=== PATIENT | male | born 1960 | race Caucasian/White ===

== ENCOUNTER → 2019-05-30 16:12 | Outpatient (CLI) | payer BC, SELFPAY ==
--- NOTE | ~2019-05-30 | XR_ITS ---
XR lumbar spine 6V w bending 05/30/2019 17:46 Indication: Low back pain. Sciatica. Procedure: 7 views lumbar spine Comparison: 06/09/2018 Findings: There is levoscoliosis of the lumbar spine centered at L2-3. There is lateral listhesis at L3-4, unchanged. There is disc narrowing at all lumbar levels. There is moderate multilevel facet hyp ertrophy. There are endplate degenerative changes at multiple levels. There is degenerative retrolist hesis at L2-3, unchanged. No significant alteration of alignment with flexion or extension. There are Schmorl's nodes at multiple levels. There are cholecystectomy clips. Impression: 1: Stable severe lumbar spondylosis with levoscoliosis. Reviewed, dictated and finalized at location A. TAPER Impression: 1: Stable severe lumbar spondylosis with levoscoliosis.
--- NOTE | ~2019-05-30 | MR_ITS ---
EXAMINATION: MR lumbar spine wo con DATE: 05/30/2019 17:24 INDICATION: Low back pain. TECHNIQUE: Magnetic resonance imaging (MRI) of the lumbar spine was performed without intravenous con trast. Sequences included sagittal T2-weighted FSE, sagittal T2-weighted FS FSE, sagittal T1-weighted FSE, and axial T2-weighted FSE. COMPARISON: Lumbar spine MRI 01/13/2009 FINDINGS: There is 14 degrees levoscoliosis of lumbar spine. There are Schmorl's nodes at all levels. There is severely decreased disc height from L1-L2 through L3-L4 and moderately decreased disc heigh t at L4-L5. The distal spinal cord signal intensity is normal. The conus medullaris is at L1-L2. The following disc levels are specifically discussed: L1-L2: The disc is bulging. There is mild bilateral facet joint osteoarthritis. There is moderate taty ateral neural foraminal stenosis. There is mild central canal stenosis. L2-L3: The disc is bulging and has an annular fissure. There is severe right and mild left facet join t osteoarthritis. There is moderate right and mild left neural foraminal stenosis. There is mild cent ral canal stenosis. L3-L4: The disc is bulging and has an annular fissure. There is severe bilateral facet joint osteoart hritis. There is moderate bilateral neural foraminal stenosis. There is mild central canal stenosis. L4-L5: The disc is bulging and has an annular fissure. There is mild right and severe left facet join t osteoarthritis. There is moderate bilateral neural foraminal stenosis. There is severe central nury l stenosis. L5-S1: The disc is bulging. There is moderate right and severe left facet joint osteoarthritis. There is mild bilateral neural foraminal stenosis. There is mild central canal stenosis. IMPRESSION: 1. Severe lumbar spondylosis, worsened from 01/13/2009. 2. Lumbar levoscoliosis. Reviewed, dictated and finalized at location A. GORY ANALYST
== END ==
PROVIDERS: PCP Family Medicine; Visit Provider Nurse Practitioner Family
DX: M54.5 Low back pain (principal); M47.816 Spondylosis without myelopathy or radiculopathy, lumbar region; M41.9 Scoliosis, unspecified
CPT/HCPCS: 72114; 72148

== ENCOUNTER 2020-12-30 17:22 | Outpatient (CLI) | payer BC, SELFPAY ==
--- NOTE | ~2020-12-30 | CT_ITS ---
EXAMINATION: CT abdomen pelvis wo con DATE: 12/30/2020 18:03 INDICATION: Calculus of kidney. TECHNIQUE: Computed tomography (CT) of the abdomen and pelvis was performed without intravenous contr ast. Automated exposure control and iterative reconstruction technique were employed. The dose-length product was 302.95 mGy-cm. COMPARISON: CT abdomen and pelvis 01/19/2018 FINDINGS: The visualized portions of the lung bases are clear without pneumonia or pleural effusion. The heart size is normal. There are coronary artery calcifications. No pericardial effusion. There is diffuse hepatic steatosis. There are changes of cholecystectomy. The spleen, pancreas, and adrenal g lands are normal. There are two 5 mm stones in right renal pelvis. There is a 5 mm stone in left ray l pelvis. There is a 2 mm stone in left kidney. There are peripelvic cysts in the kidneys. There is p rominent fat in left inguinal canal that may be a hernia. The prostate is mildly enlarged. There is d iverticulosis of the colon without evidence of diverticulitis. There are no dilated loops of bowel. T he appendix is normal. There are surgical changes of anterior abdominal wall. There are no pathologic ally enlarged lymph nodes. There is no free intraperitoneal fluid. There is lumbar levoscoliosis and severe spondylosis. IMPRESSION: 1. Bilateral nonobstructing kidney stones. Reviewed, dictated and finalized at location A.
--- NOTE | ~2020-12-30 | XR_ITS ---
EXAMINATION: XR abdomen/kub 1V DATE: 12/30/2020 17:45 INDICATION: Right flank pain. TECHNIQUE: A supine view of the abdomen on 2 radiographs was obtained. COMPARISON: CT abdomen and pelvis 12/30/2020 FINDINGS: There are 5 mm, 5 mm, and 2 mm stones in right renal pelvis. There is a 5 mm stone in left renal pelvis. There is a 2 mm stone in left kidney. There are no dilated loops of bowel. There are ph leboliths in the pelvis. IMPRESSION: 1. Bilateral kidney stones. Reviewed, dictated and finalized at location A. IMPRESSION: 1. Bilateral kidney stones.
== END 2020-12-30 17:23 | disposition home or self-care (01) ==
LOC: ANHIMG 17:26
PROVIDERS: PCP Family Medicine; Visit Provider Urology
DX: N20.0 Calculus of kidney (principal)
CPT/HCPCS: 74018; 74176

== ENCOUNTER 2021-01-13 08:12 | Outpatient (CLI) | payer BC, SELFPAY ==
[2021-01-13 09:03] LABS: INR 0.9; Prothrombin Time 12.4 Seconds (11.1-14.7)
[2021-01-13 09:04] LABS: Partial Thromboplastin Time 25.8 SECONDS (22.3-36.8)
== END 2021-01-13 08:13 | disposition home or self-care (01) ==
LOC: ANHSURGERY 08:15
PROVIDERS: PCP Family Medicine; Visit Provider Urology
DX: Z01.818 Encounter for other preprocedural examination (principal); N23 Unspecified renal colic
CPT/HCPCS: 36415; 85610; 85730; 87086

== ENCOUNTER 2021-01-17 02:15 | Day surgery (SDC) | payer BC, SELFPAY ==
[2021-01-09 17:36] VITALS: BMI 29.7
--- NOTE | 2021-01-16 12:23 | WPDANESEPPF ---
Anes - Initial Pre Proc Eval Procedure: Operation Date: 01/17/21 09:00 Proposed Procedures p Right Renal Extracorporeal Shock Wave Lithotripsy - Virgil Andujar MD Date/Time: 01/16/21 12:23 Surgeon: Virgil Andujar MD Pre Op Diagnosis: Right Renal Stone Patient Data Age: 60 Gender: M Height: 1.73 m Weight: 88.6 kg Allergies Allergy/AdvReac Type Severity Reaction Status Date / Time No Known Allergies Allergy Verified 01/17/21 07:38 Home Medications Medication Instructions Recorded Confirmed Type metaxalone 800 mg tablet 800 mg PO TID PRN #90 tablet 06/14/19 01/09/21 Rx valacyclovir 1 gram tablet 2,000 mg PO Q12H PRN #20 tablet 09/01/19 01/09/21 Rx hydrocodone 5 mg-acetaminophen 325 1 tablet PO Q6H PRN #40 tablet 10/31/19 01/09/21 Rx mg tablet lisinopril 10 mg tablet 10 mg PO DAILY #90 tablet 04/10/20 01/17/21 Rx clopidogrel 75 mg tablet See Rx Instructions .ROUTE 04/24/20 01/17/21 Rx .COMPLEX #90 tablet rosuvastatin 5 mg tablet See Rx Instructions .ROUTE 04/24/20 01/17/21 Rx .COMPLEX #90 tablet testosterone 20.25 mg/1.25 gram 4 pump TOPICAL DAILY #300 g 06/27/20 01/09/21 Rx (1.62 %) transdermal gel pump metformin 500 mg tablet,extended See Rx Instructions .ROUTE 07/15/20 01/17/21 Rx release 24 hr .COMPLEX #180 tablet metoprolol succinate 50 mg 25 mg PO DAILY #90 tablet 10/22/20 01/17/21 Rx tablet,extended release 24 hr aspirin 81 mg tablet,delayed 81 mg PO DAILY 10/30/20 01/17/21 History release sildenafil 100 mg tablet 100 mg PO DAILY PRN #30 tablet 10/30/20 01/09/21 Rx alclometasone 1 applic TOPICAL QAM 01/09/21 01/09/21 History alprazolam [Xanax] 0.25 mg PO TID PRN 01/09/21 01/17/21 History ibuprofen 800 mg PO QAM PRN 01/09/21 01/17/21 History lidocaine See Rx Instructions .ROUTE 01/09/21 History .COMPLEX PRN meloxicam 15 mg PO DAILY PRN 01/09/21 History zolpidem 10 mg PO .QHS PRN 01/09/21 01/09/21 History Patient hx anesthesia problems: none Family hx anesthesia problems: none [facility] Past Medical History Medical History (Updated 01/16/21 @ 12:24 by Shola Mcgovern DO) Actinic keratosis of forehead Atherosclerotic heart disease of [place] coronary artery with other forms of angina pectoris Bradycardia, drug induced Calculus of kidney Dyskinesia of esophagus Essential (primary) hypertension Fatty (change of) liver, not elsewhere classified History of heart attack Hypogonadism in male Insomnia Obesity (BMI 30.0-34.9) Obstructive sleep apnea (adult) (pediatric) Other lower urinary tract calculus Overweight (BMI 25.0-29.9) Prediabetes Pure hyperglyceridemia Sacroiliac joint dysfunction of left side Spondylosis without myelopathy or radiculopathy, lumbar region Tenosynovitis of left shoulder Thoracic aortic aneurysm without rupture Tinnitus Unspecified sleep apnea Surgical History Surgical History (Updated 01/16/21 @ 12:24 by Shola Mcgovern DO) History of coronary artery stent placement Family History Family History Mother Family history of cardiovascular disease Family history of coronary artery disease Family history of malignant neoplasm of breast in first degree relative Father Acute myocardial infarction, Onset Age: 40 Family history of heart disease in male family member before age 55 Other Family history of malignant neoplasm of breast Hypertension Social History Social History Smoking packs per day: 1 Smoking cigarettes per day: 20.0 Years smoked: 20 Smoking pack-years: 20.00 Smoking status: Former smoker Tobacco type: cigarettes Smoking end date: 01/09/99 Alcohol intake: current Living arrangements: with family Spiritual care concerns: No Anes - Eval Final PreProcedure Day of Procedure 01/16/21 12:23 Patient weight: overweight Heart: regular rate and rhythm Nathaly
[2021-01-17] VITALS (15 sets, daily range): BP systolic 97–147; BP diastolic 61–97; PULSE 67–85; RESP 12–19; TEMP 36.1–36.4; O2SAT 94–97
--- NOTE | ~2021-01-17 | XR_ITS ---
EXAMINATION: XR abdomen/kub 1V INDICATION: Calculus of kidney TECHNIQUE: Supine views of the abdomen were obtained on 2 radiographs. COMPARISON: 12/30/2020 FINDINGS: There are stones measuring 8 mm and 7 mm in the right renal pelvis at the level of the righ t L3 transverse process. There is a 5 mm stone in the left renal pelvis at the level of the left L3 t ransverse process. No stones are identified in the kidneys or bladder. The bowel gas pattern is edin l. Cholecystectomy clips are noted in the right upper quadrant. There are mesh hernia repair anchors in the midline. There is severe lumbar spondylosis and moderate hip osteoarthritis. IMPRESSION: 1. Unchanged stones in the bilateral renal pelves. Reviewed, dictated and finalized at location A.
--- NOTE | 2021-01-17 07:33 | WPDHPUPDATE1 ---
History and Physical Update Update Date/Time: 01/17/21 07:33 History and Physical has been reviewed, including an updated exam of the patient. There are NO changes in the patient's condition. Risks, benefits, and alternatives have been discussed and questions answered. Patient agrees to proceed with procedure. Proceed with right renal eswl
[2021-01-17] MEDS: LACTATED RINGERS 1,000 ML 30 ML IV CONT ×2 (08:05→10:11)
[2021-01-17] MEDS: ceFAZolin 2 GM/D5W 50 ML 2 GM/50 ML BAG IVPB (08:44)
--- NOTE | 2021-01-17 09:26 | W.PM.PROC2 ---
Procedure Note - Detailed Date of Procedure 01/17/21 Pre-op Diagnosis Right Renal Stone Post-op Diagnosis same Procedure Performed ESWL right renal calculi Surgeon Virgil Andujar MD Anesthesia general Description of Procedure Patient is taken the operative suite correctly identified. Once anesthesia was obtained the right renal stones were localized in both planes. Two thousand five hundred shocks were given. Patient tolerated procedure well without complications taken recovery stable condition. Patient had 2 stones which were adjacent to each other each measuring 4-5 mm. Drains No Packing No Pathology none sent Complications No immediate complications Condition stable Disposition PACU
[2021-01-17] MEDS: ONDANSETRON INJ 4 MG/2 ML VIAL IV PUSH (10:48)
[2021-01-17] MEDS: oxyCODONE HCL (*CRX) 5 MG TAB IR PO (11:04)
[2021-01-17] MEDS: ACETAMINOPHEN 500 MG TABLET 1000 MG PO (12:00)
--- NOTE | 2021-01-17 12:08 | SUR.PHASEII ---
pt still c/o pain after meds given per jul. md biran called about pt assessment. said to give oxybutinin 5mg. vss abd soft but tender. will continue to monitor. pt called and updated.
[2021-01-17] MEDS: OXYBUTYNIN CHLORIDE 5 MG TABLET PO (12:22)
== END 2021-01-17 13:16 | disposition home or self-care (01) ==
PROVIDERS: PCP Family Medicine; Visit Provider Urology
PROC: (CPT 50590; principal; 2021-01-17 09:00)
DX: N20.0 Calculus of kidney (principal); I25.10 Atherosclerotic heart disease of native coronary artery without angina pectoris; I10 Essential (primary) hypertension; I25.2 Old myocardial infarction; K76.0 Fatty (change of) liver, not elsewhere classified; G47.33 Obstructive sleep apnea (adult) (pediatric); R73.03 Prediabetes; E78.1 Pure hyperglyceridemia; M47.816 Spondylosis without myelopathy or radiculopathy, lumbar region; I71.2 Thoracic aortic aneurysm, without rupture; Z95.5 Presence of coronary angioplasty implant and graft; Z87.891 Personal history of nicotine dependence; Z79.02 Long term (current) use of antithrombotics/antiplatelets; Z79.891 Long term (current) use of opiate analgesic; Z79.84 Long term (current) use of oral hypoglycemic drugs; Z79.82 Long term (current) use of aspirin
CPT/HCPCS: 50590; 74018; A9270; J0690; J1100; J2250; J2405; J2704; J3010; J7120

== ENCOUNTER 2021-01-27 12:08 | Outpatient (CLI) | payer BC, SELFPAY ==
--- NOTE | ~2021-01-27 | XR_ITS ---
EXAMINATION: XR abdomen/kub 1V INDICATION: Calculus of the kidney TECHNIQUE: Supine views of the abdomen were obtained on 2 radiographs. COMPARISON: 01/17/2021 FINDINGS: Previously described stones in the right renal pelvis are no longer seen. There appear to b e new tiny stone fragments in the right kidney lower pole which may relate to treatment of right ray l pelvis stones. A 4 mm stone projects in the expected location of the left renal pelvis at the level of the left L3 transverse process. Punctate stone is seen in the left kidney lower pole. This ventra l hernia repair changes are noted. There is moderate osteoarthritis of the hips. Severe lumbar spondy losis is noted. Surgical clips in the right upper quadrant are likely from prior cholecystectomy. IMPRESSION: 1. Interval treatment of right-sided stones with possible resulting stone fragments in the right kidn ey lower pole. 2. Unchanged stone in the left renal pelvis. Reviewed, dictated and finalized at location A. IMPRESSION: 1. Interval treatment of right-sided stones with possible resulting stone fragm ents in the right kidney lower pole. 2. Unchanged stone in the left renal pelvis.
== END 2021-01-27 12:09 | disposition home or self-care (01) ==
LOC: ANHIMG 12:12
PROVIDERS: PCP Family Medicine; Visit Provider Urology
DX: N20.0 Calculus of kidney (principal)
CPT/HCPCS: 74018

== ENCOUNTER 2021-03-04 12:14 | Outpatient (CLI) | payer OTHER, SELFPAY ==
--- NOTE | ~2021-03-04 | MR_ITS ---
EXAMINATION: MR cervical spine wo con EXAM DATE: 03/04/2021 13:45 INDICATION: M79.2 - Neuralgia and neuritis, unspecified. TECHNIQUE: Multi-sequential, multiplanar MR images of the cervical spine were obtained without contra st. Axial T2, axial T2 MERGE sequence. Sagittal T1, T2, T2 fat saturation images also obtained. Th ere is no prior study for comparison. FINDINGS: There is moderate to severe disc disease from C3 through C7. The spinal cord signal intens ity and intrinsic morphology is normal. Cervicomedullary junction is normal in appearance. The verteb ral bodies are aligned in the AP dimension. There are no suspicious marrow signal abnormalities. Para spinal soft tissue is unremarkable. Level by level evaluation: C2-C3: Disc does not extend beyond the endplate margin. Uncovertebral joint arthropathy: None. Facet joint arthropathy: Mild bilateral. Neural foraminal stenosis: No stenosis. Central canal stenosis: No stenosis. C3-C4: There is a mild diffuse disc bulge. Uncovertebral joint arthropathy: Moderate bilateral. Facet joint arthropathy: Moderate bilateral. Neural foraminal stenosis: Moderate to severe left, moderate right. Central canal stenosis: Mild. C4-C5: There is a mild diffuse disc bulge. Uncovertebral joint arthropathy: Moderate to severe bilateral. Facet joint arthropathy: Moderate to severe bilateral. Neural foraminal stenosis: Moderate to severe bilateral, right greater than left. Central canal stenosis: Mild. C5-C6: There is a mild diffuse disc bulge. Uncovertebral joint arthropathy: Moderate to severe bilateral. Facet joint arthropathy: Mild to moderate bilateral. Neural foraminal stenosis: Moderate right, mild to moderate left. Central canal stenosis: Mild. C6-C7: There is a mild diffuse disc bulge. Uncovertebral joint arthropathy: Moderate bilateral. Facet joint arthropathy: Mild bilateral. Neural foraminal stenosis: Moderate to severe right, moderate left. Central canal stenosis: Mild. C7-T1: Disc does not extend beyond the endplate margin. Uncovertebral joint arthropathy: Mild bilateral. Facet joint arthropathy: Mild bilateral. Neural foraminal stenosis: No stenosis. Central canal stenosis: No stenosis. IMPRESSION: 1. Advanced mid cervical spondylosis. Reviewed, dictated and finalized at location A.
--- NOTE | ~2021-03-04 | MR_ITS ---
EXAMINATION: MR shoulder RT wo con DATE: 03/04/2021 13:45 INDICATION: Neuralgia/neuritis with particular pain at the right upper extremity and right shoulder p ain while sleeping. TECHNIQUE: Magnetic resonance imaging (MRI) of the right shoulder was performed without intravenous c ontrast. Sequences included axial PD-weighted FS FSE, coronal oblique PD-weighted FS FSE, coronal obl ique T2-weighted FS FSE, sagittal PD-weighted FS FSE, and sagittal T1-weighted SE. COMPARISON: None. FINDINGS: Coracoacromial arch: The acromion undersurface is curved in morphology (type II). The coracoacromial ligament is normal. M ild acromioclavicular osteoarthritis. Rotator cuff: Mild supraspinatus and moderate infraspinatus tendinopathy. There is no articular sided tear involvin g less than one third of the tendon thickness at the anterior superior facet footplate of the suprasp inatus tendon increasing in severity to greater than 50% at the conjoined portion of the supraspinatu s and infraspinatus tendons. The articular side of the tear measures 1.8 cm AP. In the mid infraspina tus tendon the tear transitions to a small bursal sided tear involving approximately 50% the tendon t hickness at the distal 1 cm of the mid to posterior infraspinatus tendon. Full-thickness communicatio n between the articular bursal sides of the tendon cannot be excluded although no clearly defined/magui surable full-thickness fluid signal intensity tear defect is appreciated. The teres minor tendon is n ormal. Mild to moderate subscapularis tendinopathy without discrete tear. Normal rotator cuff muscle bulk and signal. Biceps tendon, glenoid labrum and glenohumeral cartilage: Moderate tendinopathy of the intra-articular long head of the biceps tendon with suggestion of possib le longitudinal split tearing at the junction of the internal extra articular portion of the tendon. Moderate right glenohumeral osteoarthritis with extensive partial thickness cartilage loss throughout the glenoid and along the humeral head which appears to involve greater than 50% the thickness at th e superomedial aspect of the humeral head with small focus of underlying subarticular edema as well a s at the along the anterior and inferior aspects of the glenoid, lateral with mild subarticular cysti c change. Diffuse degenerative tearing of the glenoid labrum. 8 mm diameter paralabral cyst at the 6: 00 position of the glenoid. Fluid: Minimal glenohumeral joint effusion with fluid surrounding a couple loose osteochondral bodies at the deep subscapular recess. There is a small amount of fluid in the subacromial/subdeltoid bursa, a por tion of which extends medially along the posterior margin of the scapular spine or there is an additi onal small loose body. There is also small amount of fluid in the subcoracoid bursa. The fluid in bot h bursae could be related to either bursitis or decompression of glenohumeral joint fluid through a s uspected full-thickness rotator cuff perforation. Bones: Bone alignment is normal. No fracture or pathologic marrow replacing process. IMPRESSION: 1. Moderate-sized mild to moderate severity rotator cuff tear extending along the articular side of t he supraspinatus tendon and conjoined portion of the supraspinatus and infraspinatus tendons and hemphill sitioning to a bursal sided tear at the mid to posterior infraspinatus tendon. Suspect this likely in cludes a contiguous full-thickness perforation/communication although no single discrete full-thickne ss tear defect is appreciated. 2. Moderate glenohumeral osteoarthritis with diffuse degenerative tearing of the glenoid labrum. 3. Moderate tendinopathy and suggestion of longitudinal split tearing of the long head biceps tendon. 4. Moderate acromioclavicular osteoarthritis. 5. Fluid in the subacromial/subdeltoid bursa and subcoracoid bursa which could be due to bursitis or decompr
== END 2021-03-04 12:15 | disposition home or self-care (01) ==
PROVIDERS: PCP Family Medicine; Visit Provider Family Medicine
DX: M79.2 Neuralgia and neuritis, unspecified (principal); S43.431A Superior glenoid labrum lesion of right shoulder, initial encounter; M19.011 Primary osteoarthritis, right shoulder; M47.812 Spondylosis without myelopathy or radiculopathy, cervical region
CPT/HCPCS: 72141; 73221

== ENCOUNTER 2021-03-10 15:27 | Outpatient (CLI) | payer BC, SELFPAY ==
[2021-03-10 16:09] LABS: Prothrombin Time 12.7 Seconds (11.1-14.7)
[2021-03-10 16:13] LABS: Partial Thromboplastin Time 25.7 SECONDS (22.3-36.8)
[2021-03-10 16:18] LABS: Anion Gap 7 mmol/L (8-16); Blood Urea Nitrogen 20 mg/dL (9-20); Calcium 9.7 mg/dL (8.4-10.2); Carbon Dioxide 33 mmol/L (22-30); Chloride 101 mmol/L (98-107); Estimated Glomerular Filt Rate > 60; Glucose 124 mg/dL (65-110); Sodium 141 mmol/L (137-145)
== END 2021-03-10 15:28 | disposition home or self-care (01) ==
LOC: ANHSURGERY 15:31
PROVIDERS: Anesthesiology; PCP Family Medicine; Visit Provider Urology
DX: Z01.818 Encounter for other preprocedural examination (principal); N20.0 Calculus of kidney; E11.9 Type 2 diabetes mellitus without complications
CPT/HCPCS: 36415; 80048; 85610; 85730; 87086

== ENCOUNTER 2021-03-14 02:16 | Day surgery (SDC) | payer BC, SELFPAY ==
[2021-03-10 12:18] VITALS: BMI 29.6
--- NOTE | 2021-03-10 12:35 | PC.NURSE ---
Report to the Outpatient Waiting Room, entrance under the green pavilion located off [facility], at time 6:00 on date 03/14/21. OR Time: 7:30. - You and your visitor will be asked a series of questions to screen for COVID 19 for your protection. - A mask is required within the hospital. - Only one visitor is allowed at this time. Patient visitors will be guided where to wait when not with patient. Preoperative COVID Testing Requirements: No COVID Test needed if: (proof is required; if not received patient will have Rapid Test prior to entry) - Patient has received COVID Vaccine at least 14 days prior to procedure date or - Patient has positive COVID test result within last 90 days of surgery date. COVID Test needed if above criteria is not met If not COVID vaccinated a COVID test must be conducted within 72 hours of surgery and patient is asked to isolate self from time of testing until procedure. You will go to the [facility] for your COVID testing. The [facility] is located at the corner of [address] [facility]. You will only be called if COVID results are positive and your surgeon may reschedule your elective surgery date. Patients may have clear liquids (water, carbonated beverages, clear teas, apple juice) until 3 hours prior to surgery with a maximum of 20 ounces. - No food from midnight until time of surgery - Infants may have breast milk until 4 hours before surgery, infant formula 6 hours prior to surgery. - Children will be allowed to drink immediately following surgery. If applicable, please bring a bottle or sippy cup to assist with drinking. Juice, water, soda, and popsicles are readily available. For infants on formula, please bring formula the day of surgery. Pacifiers are allowed. Take the following medications with a SIP of water the morning of surgery: METOPROLOL, METAXALONE, XANAX, PAIN PILL (IF NEEDED) Medications to discontinue per physician: ASPIRIN, PLAVIX, IBUPROFEN, MELOXICAM Date to take last dose: 7 DAYS PRE-OP (PER DR. REED) Please no make-up, nail iraqi, hairspray, perfume, deodorant, or body powder the day of surgery. No jewelry (including any body piercings) or valuables the day of surgery, leave them at home. Please take a shower or bath the night before, or the morning of, surgery with an antibacterial soap. Wear comfortable, loose fitting clothing. Children are encouraged to wear pajamas. - Jewelry must be removed prior to entering the operating room. Rings and piercings that are not removed may be cut off. - The hospital will not accept responsibility for valuables. - Please leave all valuables, including medications, at home the day of surgery. If you are going home after surgery, a licensed local owner operator truck driver must drive you home. - NO public transportation without another adult. - We recommend that an adult stay with you for 24 hours following discharge. - We also recommend that you do not drive, make important decision, drink alcoholic beverages, or take any drugs that were not prescribed by your health care provider for at least 24 hours after your discharge time. For Pediatric surgeries, we recommend two adults accompany the child home (only one inside the building at this time). Follow any additional instructions given to you from your surgeon. Telephone instructions given to LISETTE NUÑEZ and asked if any additional questions and then verbalized understanding. Patient advised to call surgeon office or pre surgery nurse liaison [phone] if any additional questions.
[2021-03-14] VITALS (8 sets, daily range): BP systolic 139–165; BP diastolic 85–106; PULSE 65–86; RESP 16; TEMP 36.1–36.4; O2SAT 94–99
--- NOTE | ~2021-03-14 | XR_ITS ---
XR abdomen/kub 1V 03/14/2021 06:12 Indication: Preop ESWL Procedure: KUB Comparison: Comparison to multiple prior studies sequentially, with oldest reviewed study dated 01/28. Findings: Bowel gas pattern is nonobstructive. There are bilateral renal stones, largest near the exp ected location of the left UPJ measuring 5 mm. There is multilevel lumbar spondylosis with levoscolio sis. There are symmetric degenerative change of the hips. Lung bases unremarkable. Impression: 1: Stable bilateral nephrolithiasis. Reviewed, dictated and finalized at location A. HBORHOOD AIDE Impression: 1: Stable bilateral nephrolithiasis.
[2021-03-14] MEDS: LACTATED RINGERS 1,000 ML 30 ML IV CONT (06:44)
--- NOTE | 2021-03-14 06:50 | WPDANESEPPF ---
Anes - Initial Pre Proc Eval Procedure: Operation Date: 03/14/21 07:30 Proposed Procedures p Left Renal Extracorporeal Shock Wave Lithotripsy - Virgil Andujar MD Date/Time: 03/14/21 06:50 Surgeon: Virgil Andujar MD Pre Op Diagnosis: Left Renal Stone Patient Data Age: 60 Gender: M Height: 1.73 m Weight: 88.45 kg Allergies Allergy/AdvReac Type Severity Reaction Status Date / Time No Known Allergies Allergy Verified 03/10/21 12:15 Home Medications Medication Instructions Recorded Confirmed Type metaxalone 800 mg tablet 800 mg PO TID PRN #90 tablet 06/14/19 03/10/21 Rx lisinopril 10 mg tablet 10 mg PO DAILY #90 tablet 04/10/20 03/10/21 Rx clopidogrel 75 mg tablet See Rx Instructions .ROUTE 04/24/20 03/10/21 Rx .COMPLEX #90 tablet rosuvastatin 5 mg tablet See Rx Instructions .ROUTE 04/24/20 03/10/21 Rx .COMPLEX #90 tablet metformin 500 mg tablet,extended See Rx Instructions .ROUTE 07/15/20 03/10/21 Rx release 24 hr .COMPLEX #180 tablet metoprolol succinate 50 mg 25 mg PO DAILY #90 tablet 10/22/20 03/10/21 Rx tablet,extended release 24 hr aspirin 81 mg tablet,delayed 81 mg PO DAILY 10/30/20 03/10/21 History release alclometasone 1 applic TOPICAL QAM 01/09/21 03/10/21 History alprazolam [Xanax] 0.25 mg PO TID PRN 01/09/21 03/10/21 History ibuprofen 800 mg PO QAM PRN 01/09/21 03/10/21 History lidocaine See Rx Instructions .ROUTE 01/09/21 03/10/21 History .COMPLEX PRN meloxicam 15 mg PO DAILY PRN 01/09/21 03/10/21 History testosterone 20.25 mg/1.25 gram 4 pump TOPICAL DAILY #300 g 01/30/21 03/10/21 Rx (1.62 %) transdermal gel pump hydrocodone 5 mg-acetaminophen 325 1 tablet PO Q6H PRN #30 tablet 02/21/21 03/10/21 Rx mg tablet Patient hx anesthesia problems: other (slow to awaken) Family hx anesthesia problems: none Results Review: All pre-operative results and documents have been reviewed as part of the pre-operative evaluation. [facility] Past Medical History Medical History Actinic keratosis of forehead Atherosclerotic heart disease of [place] coronary artery with other forms of angina pectoris Bradycardia, drug induced Calculus of kidney Dyskinesia of esophagus Essential (primary) hypertension Fatty (change of) liver, not elsewhere classified History of heart attack Hypogonadism in male Inguinal hernia (~10/2017) Insomnia Obesity (BMI 30.0-34.9) Obstructive sleep apnea (adult) (pediatric) Other lower urinary tract calculus Overweight (BMI 25.0-29.9) Prediabetes Pure hyperglyceridemia Sacroiliac joint dysfunction of left side Spondylosis without myelopathy or radiculopathy, lumbar region Tenosynovitis of left shoulder Thoracic aortic aneurysm without rupture Tinnitus Umbilical hernia (~01/2014) Unspecified sleep apnea Surgical History Surgical History History of coronary artery stent placement (~10/2009) History of tonsillectomy Hx of cholecystectomy (~08/2004) Status post laser lithotripsy of ureteral calculus Family History Family History Mother Family history of cardiovascular disease Family history of coronary artery disease Family history of malignant neoplasm of breast in first degree relative Father Acute myocardial infarction, Onset Age: 40 Family history of heart disease in male family member before age 55 Other Family history of malignant neoplasm of breast Hypertension Social History Social History Smoking packs per day: 1 Smoking cigarettes per day: 20.0 Years smoked: 25 Smoking pack-years: 25.00 Smoking status: Former smoker Tobacco type: cigarettes Smoking end date: 05/03/94 Alcohol intake: current Drinks per week: 4 Substance use: never Substance use type: does not use
[2021-03-14 06:53] LABS: Glucose Point of Care 155 mg/dl (65-105)
--- NOTE | 2021-03-14 07:01 | ECG_ITS ---
Measurements Intervals [place] Rate: 71 P: 9 [place]: 173 QRS: -17 QRSD: 94 T: -19 QT: 356 QTc: 388 Interpretive Statements SINUS RHYTHM VOLTAGE CRITERIA FOR LVH BORDERLINE T WAVE ABNORMALITY- INFERIOR LEADS BASELINE ARTIFACT- II, III, AVF BORDERLINE ECG Electronically Signed On 03-14-2021 8:54:46 MANAGER MECHANICAL by Rk Dale D.O.
--- NOTE | 2021-03-14 07:16 | WPDHPUPDATE1 ---
History and Physical Update Update Date/Time: 03/14/21 07:16 History and Physical has been reviewed, including an updated exam of the patient. There are NO changes in the patient's condition. Risks, benefits, and alternatives have been discussed and questions answered. Patient agrees to proceed with procedure. Proceed with left renal eswl
[2021-03-14] MEDS: ceFAZolin 2 GM/D5W 50 ML 2 GM/50 ML BAG IVPB (07:30)
--- NOTE | 2021-03-14 08:11 | W.PM.PROC2 ---
Procedure Note - Detailed Date of Procedure 03/14/21 Pre-op Diagnosis Left Renal Stone Post-op Diagnosis same Procedure Performed ESWL of left renal calculus Surgeon Virgil Andujar MD Anesthesia general Description of Procedure Patient is taken the operative suite correctly identified. Once anesthesia was obtained the left renal stone was localized in both planes. After 1500 shocks the stone was no longer visible. We thus terminated procedure. Patient was taken recovery stable condition. He will follow up in about 10 days with a KUB. If develops any problems he will call us to deal with appropriately. Drains No Packing No Pathology none sent Complications No immediate complications Disposition PACU
[2021-03-14] MEDS: fentaNYL CITRATE INJ (*CRX) 100 MCG/2 ML VIAL 25 MCG IV PUSH ×4 (08:28→08:44)
[2021-03-14] MEDS: oxyCODONE HCL (*CRX) 5 MG TAB IR PO (09:10)
== END 2021-03-14 10:00 | disposition home or self-care (01) ==
PROVIDERS: PCP Family Medicine; Visit Provider Urology
PROC: (CPT 50590; principal; 2021-03-14 07:30)
DX: N20.0 Calculus of kidney (principal); R31.29 Other microscopic hematuria; R31.0 Gross hematuria; Z79.82 Long term (current) use of aspirin; Z79.84 Long term (current) use of oral hypoglycemic drugs; L57.0 Actinic keratosis; I25.118 Atherosclerotic heart disease of native coronary artery with other forms of angina pectoris; R00.1 Bradycardia, unspecified; I10 Essential (primary) hypertension; K76.0 Fatty (change of) liver, not elsewhere classified; I25.2 Old myocardial infarction; G47.33 Obstructive sleep apnea (adult) (pediatric); R73.03 Prediabetes; E78.1 Pure hyperglyceridemia; M47.816 Spondylosis without myelopathy or radiculopathy, lumbar region; Z95.5 Presence of coronary angioplasty implant and graft; Z90.49 Acquired absence of other specified parts of digestive tract; Z87.891 Personal history of nicotine dependence
CPT/HCPCS: 50590; 74018; 82948; 93005; A9270; J0690; J1100; J2250; J2405; J2704; J3010; J7120

== ENCOUNTER 2021-03-19 14:57 | Outpatient (CLI) | payer BC, SELFPAY ==
--- NOTE | ~2021-03-19 | XR_ITS ---
EXAMINATION: XR abdomen/kub 1V DATE: 03/19/2021 15:17 INDICATION: Renal stones post recent lithotripsy TECHNIQUE: A supine view of the abdomen on 2 radiographs was obtained. COMPARISON: 03/14/2021 FINDINGS: There are three,1-2 mm stones project over the lower pole of the right kidney. Unchanged 1 mm stone p rojecting over the lower pole of the left kidney. Likely interval lithotripsy of a previously seen 5 mm stone at the left ureteropelvic junction with residual 2-3 mm stone fragment in the proximal most left ureter projecting slightly lateral to the left transverse process of L3. Unchanged pattern of ph leboliths in the pelvis. No other evident ureteral stones.. Postoperative changes with multiple stapl es project over the central abdomen and pelvis. Mild lumbar levoscoliosis with severe spondylosis. IMPRESSION: 1. Bilateral nephrolithiasis with likely interval lithotripsy of a prior 5 mm stone at the left urete ropelvic junction with residual 2-3 mm stone fragment in the proximal most left ureter. Reviewed, dictated and finalized at location A. RAL MANAGER [employer]ACLE DATA CLOUD IMPRESSION: 1. Bilateral nephrolithiasis with likely interval lithotripsy of a prior 5 mm s tone at the left ureteropelvic junction with residual 2-3 mm stone fragment in the proximal most left ureter.
== END 2021-03-19 14:58 | disposition home or self-care (01) ==
LOC: ANHIMG 15:02
PROVIDERS: PCP Family Medicine; Visit Provider Urology
DX: N20.0 Calculus of kidney (principal)
CPT/HCPCS: 74018

== ENCOUNTER 2021-05-30 00:32 | Day surgery (SDC) | payer OTHER, SELFPAY ==
[2021-05-26 15:46] VITALS: BMI 29.7
--- NOTE | 2021-05-26 15:48 | SUR.PREOP ---
Report to the Outpatient Waiting Room, entrance under the green pavilion located off [facility], at time _1030 on date _05/30/21 . OR Time: _1230 . - A mask is required within the hospital. Preoperative COVID Testing Requirements: No COVID Test needed if: (proof is required; if not received patient will have Rapid Test prior to entry) - Patient has received COVID Vaccine at least 14 days prior to procedure date or - Patient has positive COVID test result within last 90 days of surgery date. COVID Test needed if above criteria is not met If not COVID vaccinated a COVID test must be conducted within 72 hours of surgery and patient is asked to isolate self from time of testing until procedure. You will go to the [facility] for your COVID testing. The [facility] is located at the corner of [address] [facility]. You will only be called if COVID results are positive and your surgeon may reschedule your elective surgery date. Patients may have clear liquids (water, carbonated beverages, clear teas, apple juice) until 3 hours prior to surgery with a maximum of 20 ounces. - No food from midnight until time of surgery - Infants may have breast milk until 4 hours before surgery, formula 6 hours prior to surgery. - Children will be allowed to drink immediately following surgery. If applicable, please bring a bottle or sippy cup to assist with drinking. Juice, water, soda, and popsicles are readily available. For infants on formula, please bring formula the day of surgery. Pacifiers are allowed. Take the following medications with a SIP of water the morning of surgery: __xanax,metoprolol Medications to discontinue per physician n/a_ Date to take last dose Please no make-up, nail fijian, hairspray, perfume, deodorant, or body powder the day of surgery. No jewelry (including any body piercings) or valuables the day of surgery, leave them at home. Please take a shower or bath the night before, or the morning of, surgery with an antibacterial soap. Wear comfortable, loose fitting clothing. Children are encouraged to wear pajamas. - Jewelry must be removed prior to entering the operating room. Rings and piercings that are not removed may be cut off. - The hospital will not accept responsibility for valuables. - Please leave all valuables, including medications, at home the day of surgery. If you are going home after surgery, a licensed [employer] flatbed driver must drive you home. - NO public transportation without another adult. - We recommend that an adult stay with you for 24 hours following discharge. - We also recommend that you do not drive, make important decision, drink alcoholic beverages, or take any drugs that were not prescribed by your health care provider for at least 24 hours after your discharge time. For Pediatric surgeries, we recommend two adults accompany the child home (only one inside the building at this time). Follow any additional instructions given to you from your surgeon. Telephone instructions given to _sarita duran and asked if any additional questions and then verbalized understanding. Patient advised to call surgeon office or pre surgery nurse liaison [phone] if any additional questions.
--- NOTE | 2021-05-29 12:02 | WPDANESPNB ---
Anes - Peripheral Nerve Block Date/Time: 05/29/21 12:02 I have discussed with the patient/family/POA the placement of a peripheral nerve block for post-operative pain management, including associated risks, benefits, complications, and side effects. Alternative methods of post-operative analgesia were detailed. Questions were solicited and answers provided to the satisfaction of the patient/family/POA. Time-Out: A pre-procedural Time-Out was completed immediately before starting the procedure and confirmed: Patient Identification, Site, Procedure, Patient Position and the Availability of Requisite Equipment. Clinical Indications: Acute post-operative pain management requested by the operative surgeon. Nerve Block Insertion Note Anes-nerve block: supraclavicular right Patient position: supine Skin prep: chlorhexidine Needle: 22 gauge, stimulating, insulated echogenic needle. Needle length: 80 mm Technique: ultrasound (in plane) Injectate: bupivacaine 0.5% with epi 5 mcg/ml (20cc) Observations: tolerated well Complications: none Procedure start time:: 1325 Procedure end time:: 1330
--- NOTE | 2021-05-29 12:02 | WPDANESEPPF ---
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 Patient Data Age: 60 Gender: M Height: 1.73 m Weight: 88.63 kg Allergies Allergy/AdvReac Type Severity Reaction Status Date / Time No Known Allergies Allergy Verified 05/30/21 10:32 Home Medications Medication Instructions Recorded Confirmed Type metoprolol succinate 50 mg 25 mg PO DAILY #90 tablet 10/22/20 05/30/21 Rx tablet,extended release 24 hr aspirin 81 mg tablet,delayed 81 mg PO DAILY 10/30/20 05/30/21 History release alprazolam [Xanax] 0.25 mg PO PRN PRN 01/09/21 05/30/21 History lidocaine See Rx Instructions .ROUTE 01/09/21 05/30/21 History .COMPLEX PRN testosterone 20.25 mg/1.25 gram 4 pump TOPICAL DAILY #300 g 01/30/21 05/30/21 Rx (1.62 %) transdermal gel pump hydrocodone 5 mg-acetaminophen 325 1 tablet PO Q6H PRN #30 tablet 02/21/21 05/30/21 Rx mg tablet valacyclovir 500 mg tablet 500 mg PO PRN 03/24/21 05/30/21 History zolpidem 5 mg tablet 5 mg PO QHS PRN 03/24/21 05/30/21 History rosuvastatin 5 mg tablet See Rx Instructions .ROUTE 04/04/21 05/30/21 Rx .COMPLEX #90 tablet lisinopril 10 mg tablet 10 mg PO DAILY #90 tablet 04/07/21 05/30/21 Rx ibuprofen 800 mg PO DAILY 05/26/21 05/30/21 History metaxalone [Skelaxin] 800 mg PO PRN PRN 05/26/21 05/30/21 History Patient hx anesthesia problems: none Family hx anesthesia problems: none Results Review: All pre-operative results and documents have been reviewed as part of the pre-operative evaluation. [facility] Past Medical History Medical History (Updated 05/30/21 @ 12:34 by Addy Lozoya MD) Actinic keratosis of forehead Atherosclerotic heart disease of [place] coronary artery with other forms of angina pectoris Bradycardia, drug induced Calculus of kidney Cardiomyopathy ef 43%, mild jordana-infarct ischemia 01/21 Dyskinesia of esophagus Essential (primary) hypertension Fatty (change of) liver, not elsewhere classified History of heart attack Hypogonadism in male Inguinal hernia (~10/2017) Insomnia Obesity (BMI 30.0-34.9) Obstructive sleep apnea (adult) (pediatric) Other lower urinary tract calculus Overweight (BMI 25.0-29.9) Prediabetes Pure hyperglyceridemia Sacroiliac joint dysfunction of left side Spondylosis without myelopathy or radiculopathy, lumbar region Tenosynovitis of left shoulder Thoracic aortic aneurysm without rupture Tinnitus Umbilical hernia (~01/2014) Unspecified sleep apnea Surgical History Surgical History History of coronary artery stent placement (~10/2009) History of tonsillectomy Hx of cholecystectomy (~08/2004) Status post laser lithotripsy of ureteral calculus Family History Family History Mother Family history of cardiovascular disease Family history of coronary artery disease Family history of malignant neoplasm of breast in first degree relative Father Acute myocardial infarction, Onset Age: 40 Family history of heart disease in male family member before age 55 Other Family history of malignant neoplasm of breast Hypertension Social History Social History Smoking packs per day: 1 Smoking cigarettes per day: 20.0 Years smoked: 25 Smoking pack-years: 25.00 Smoking status: Former smoker Tobacco type: cigarettes Smoking end date: 05/03/98 Additional smoking assessment comments: 1ppd x20 year smoker Alcohol intake: current Drinks per week: 3 Substance use: never Substance use type: does no
[2021-05-30] VITALS (12 sets, daily range): BP systolic 105–157; BP diastolic 65–91; PULSE 65–95; RESP 15–20; TEMP 36.1–36.5; O2SAT 91–97
[2021-05-30] MEDS: ACETAMINOPHEN 500 MG TABLET 1000 MG PO (10:39)
[2021-05-30] MEDS: LACTATED RINGERS 1,000 ML 30 ML IV CONT ×2 (10:54→15:56)
[2021-05-30] MEDS: KETOROLAC 15 MG/ML VIAL (*BKC) IV PUSH (10:58)
--- NOTE | 2021-05-30 12:43 | WPDHPUPDATE1 ---
History and Physical Update Update Date/Time: 05/30/21 12:43 History and Physical has been reviewed, including an updated exam of the patient. There are NO changes in the patient's condition. Risks, benefits, and alternatives have been discussed and questions answered. Patient agrees to proceed with procedure.
--- NOTE | 2021-05-30 16:01 | W.PM.PROC2 ---
Procedure Note - Detailed Date of Procedure 05/30/21 Pre-op Diagnosis 1. Right shoulder Rotator Cuff Tear 2. Biceps Tendinosis 3. Degenerative arthritis. Post-op Diagnosis same Procedure Performed 1. Arthroscopic rotator cuff repair 2. Arthroscopic subacromial decompression 3. Arthroscopic biceps tenodesis 4. Arthroscopic labral debridement Surgeon Junior Gomes MD Certified Coding Specialist Patricia Castaneda PA-C Anesthesia general and regional ( interscalene block) Indications Severe shoulder pain and disfunction after injury. Acute rotator cuff tear and biceps injury. Chronic degenerative changes. Findings Extensive tendinosis of the biceps tendon in the joint. Tenodesis was performed at the articular margin with a loop and tack suture secured to the anterior bone tunnel. Extensive degeneration of the glenoid and mild degeneration of the humerus. Labrum damage 360?. Debridement with the shaver and the radiofrequency probe. Biceps was released from superior labrum. The subscapularis was intact. A medium size tear of the supraspinatus was confirmed. Very high-grade articular side tearing. It was very easy to pop through the remaining thin bursal side. At the subacromial space, gentle debridement delineated the medium-sized tear without significant retraction. Two tunnels were created through the bone arthroscopically. Three sutures passed through each tunnel. A rip stop configuration was performed and the sutures were tied arthroscopically. The biceps loop and tack stitch was tied at the anterior lateral portal. A complete bursectomy was performed and modest acromioplasty. Description of Procedure Preoperative antibiotics were given. An interscalene block was administered in the preoperative area. The patient was bought brought to the operating room. A general anesthetic was administered. The patient was carefully positioned in the beach chair position. The head and neck were carefully positioned. The non operative extremity was also carefully positioned. The shoulder was prepped and draped in the usual sterile fashion. Examination was performed. Standard posterior and anterior arthroscopic portals were established. Inflow achieved with the arthroscopic pump using saline and epinephrine. The glenohumeral joint was carefully inspected. The degeneration of the glenoid was most notable around the periphery with areas of exposed bone and extensive labral degeneration. This was treated with debridement using the arthroscopic shaver and the radiofrequency probe. The humerus was more modest in its generalized chondrosis. Biceps loop stitch was placed around and then secured distally. The biceps was then released. The location of the anchor was very close to the opposed anterior bone tunnel thus the biceps was secured to the bone tunnel instead of using the anchor. Attention was turned to the subacromial space. A complete bursectomy was performed. The rotator cuff and footprint were lightly debrided. A modest acromioplasty was performed. The tear configuration was carefully assessed. At this point, 2 tunnels were created at the rotator cuff. The arthroscopic bone tunnel technique was utilized. Three sutures were passed through each tunnel. All sutures were then passed through the cuff tissue. A rip stop configuration was used. This reduced the tendon very nicely and anatomically onto the footprint. The sutures were tied arthroscopically. Additionally, the suture from the biceps was secured to a suture limb at the anterolateral tunnel. The arthroscopic instruments were removed. The wounds were closed with 3-0 Monocryl subcuticular suture and steri strips. There were no complications. A sling was applied and the patient brought to the recovery room. Physician offset assistant press operator, Patricia Castaneda PA-C, required for surgery; including patient positioning, draping, arthroscopic camera operation, maintaining instrument position, suture retrieval,
--- NOTE | 2021-05-30 16:33 | SUR.PHASEI ---
Simple mask removed at 1631.
[2021-05-30] MEDS: ONDANSETRON INJ 4 MG/2 ML VIAL IV PUSH (16:39)
[2021-05-30] MEDS: SCOPOLAMINE 1.5 MG PATCH TRANSDERM (16:51)
[2021-05-30] MEDS: diphenhydrAMINE HCl INJ 50 MG/ML VIAL 25 MG IV PUSH (17:14)
--- NOTE | 2021-05-30 18:37 | SUR.PHASEII ---
2 RN'S ASSISTED PATIENT DRESSING HOLDING HIS RIGHT ARM FOR HIM. IMMOBLIZER REAPPLIED.
== END 2021-05-30 18:37 | disposition home or self-care (01) ==
PROVIDERS: PCP Family Medicine; Visit Provider Orthopaedic Surgery
PROC: (CPT 29805; principal; 2021-05-30 12:30)
DX: S46.011A Strain of muscle(s) and tendon(s) of the rotator cuff of right shoulder, initial encounter (principal); S46.201A Unspecified injury of muscle, fascia and tendon of other parts of biceps, right arm, initial encounter; X50.3XXA Overexertion from repetitive movements, initial encounter; Y99.0 Civilian activity done for income or pay; I25.118 Atherosclerotic heart disease of native coronary artery with other forms of angina pectoris; R00.1 Bradycardia, unspecified; I25.2 Old myocardial infarction; G47.33 Obstructive sleep apnea (adult) (pediatric); R73.03 Prediabetes; E78.1 Pure hyperglyceridemia; I71.6 Thoracoabdominal aortic aneurysm, without rupture; M47.26 Other spondylosis with radiculopathy, lumbar region; Z95.5 Presence of coronary angioplasty implant and graft; Z90.49 Acquired absence of other specified parts of digestive tract; Z87.891 Personal history of nicotine dependence; Z79.82 Long term (current) use of aspirin; M67.813 Other specified disorders of tendon, right shoulder; M19.011 Primary osteoarthritis, right shoulder; I11.9 Hypertensive heart disease without heart failure; I42.9 Cardiomyopathy, unspecified; G89.18 Other acute postprocedural pain
CPT/HCPCS: 64415; 29827; 29828; 29826; A4565; A9270; J1100; J1200; J1885; J2250; J2405; J2704; J2710; J3010; J7120

== ENCOUNTER 2021-07-20 15:46 | Emergency (ER) | payer BC, SELFPAY ==
[2021-07-20 15:54] VITALS: BP 177/98; PULSE 95; RESP 18; TEMP 36.7; O2SAT 97
[2021-07-20 16:17] LABS: Basophils Percent Auto 0.4 % (0.2-1.2); Eosinophils Absolute Auto 0.3 K/mm3 (0-0.3); Eosinophils Percent Auto 3.6 % (0-4.4); Hemoglobin 16.7 g/dL (14.0-18.0); Immature Granulocyte Absolute 0.02 K/mm3 (0.00-0.031); Immature Granulocyte Percent A 0.2 % (0-0.5); Lymphocytes Absolute Auto 1.93 K/mm3 (0.9-3.2); Lymphocytes Percent Auto 23.1 % (18.3-44.2); Mean Corpuscular HGB Conc 34.1 g/dl (32-36); Mean Corpuscular Hemoglobin 31.5 pg (26-34); Mean Corpuscular Volume 92.3 fl (80-100); Mean Platelet Volume 9.1 fl (7.4-10.4); Monocytes Absolute Auto 1.1 K/mm3 (0.1-0.6); Monocytes Percent Auto 12.7 % (2.6-8.5); Platelet Count Result 217 k/mm3 (150-375); Red Blood Count 5.31 M/mm3 (4.6-6.20); Red Cell Distribution Width 12.9 % (11.5-14.5); White Blood Count 8.4 K/mm3 (4.5-10.0)
[2021-07-20 16:23] LABS: Add Urine Microscopic? YES; Appearance Urine Clear (Clear); Bilirubin Urine Negative (Negative); Blood Urine 3+ (Negative); Color Urine Yellow (Yellow); Glucose Urine UA 1+ mg/dL (Negative); Ketones Urine Negative (Negative); Leukocyte Esterase Ur Negative LEU/UL (Negative); Mucus Urine Rare /lpf; Nitrate Urine Negative (Negative); Protein Urine 1+ mg/dL (Negative); RBC Urine >75 /hpf (0-2); Urobilinogen Urine Negative mg/dL (<2.0); WBC Urine 0-3 /hpf
[2021-07-20 16:37] LABS: Alanine Aminotransferase 46 U/L (4-50); Albumin Level 4.6 g/dL (3.5-5.1); Alkaline Phosphatase 46 U/L (38-126); Anion Gap 10 mmol/L (8-16); Aspartate Amino Transferase 49 U/L (17-59); Bilirubin,Total 0.9 mg/dL (0.2-1.3); Blood Urea Nitrogen 21 mg/dL (9-20); Calcium 9.2 mg/dL (8.4-10.2); Carbon Dioxide 25 mmol/L (22-30); Chloride 105 mmol/L (98-107); Estimated CRCL calculation 59 ml/min; Estimated Glomerular Filt Rate > 60; Glucose 165 mg/dL (65-110); Sodium 140 mmol/L (137-145)
--- NOTE | 2021-07-20 18:05 | PC.NURSE ---
Patient called this RN to report that he believed that he passed his kidney stone. RN noted a small pebble at the bottom of the urinal. Patient reports significant improvement in his pain level and requests discharge. made aware.
--- NOTE | 2021-07-20 18:06 | PC.NURSE ---
Dr. Currie at bedside to assess pt.
--- NOTE | 2021-07-20 18:17 | ED.ABDPAIN ---
HPI - Abdominal Pain General Chief Complaint: Abdominal Pain Stated Complaint: left flank pain Time Seen by Provider: 07/20/21 15:58 Source: patient and family Mode of arrival: ambulatory Limitations: no limitations History of Present Illness HPI narrative: Patient is 61 years old white male presented to the ED complaining of left flank pain started yesterday afternoon associated with nausea radiating to the left lower quadrant similar to his previous history with kidney stone. Patient denies any fever, chills, vomiting. Related Data Home Medications Medication Instructions Recorded Confirmed aspirin 81 mg tablet,delayed 81 mg PO DAILY 10/30/20 07/14/21 release alprazolam [Xanax] 0.25 mg PO PRN PRN 01/09/21 07/14/21 lidocaine See Rx Instructions .ROUTE 01/09/21 07/14/21 .COMPLEX PRN valacyclovir 500 mg tablet 500 mg PO PRN 03/24/21 07/14/21 zolpidem 5 mg tablet 5 mg PO QHS PRN 03/24/21 07/14/21 metaxalone [Skelaxin] 800 mg PO PRN PRN 05/26/21 07/14/21 lisinopril 20 mg tablet 20 mg PO DAILY 06/11/21 07/14/21 Allergies Allergy/AdvReac Type Severity Reaction Status Date / Time No Known Allergies Allergy Verified 07/20/21 15:48 Review of Systems Review of Systems: CONSTITUTIONAL: Denies fever, chills, or sweats. EYES: Denies visual changes, redness, or discharge. ENT: Denies rhinorrhea, congestion, sore throat, or otalgia. CARDIOVASCULAR: Denies chest pain, palpitations, or edema. RESPIRATORY: Denies cough or dyspnea. GASTROINTESTINAL: Denies abdominal pain, nausea, vomiting, or diarrhea. GENITOURINARY: Denies dysuria or hematuria. SKIN: Denies rash or itching. MUSCULOSKELETAL: Denies back pain, joint pain, or myalgia. NEUROLOGIC: Denies headache, numbness, or weakness. PSYCHIATRIC: Denies anxiety or depression. [facility] Past Medical History Medical History Actinic keratosis of forehead Atherosclerotic heart disease of [place] coronary artery with other forms of angina pectoris Bradycardia, drug induced Calculus of kidney Cardiomyopathy ef 43%, mild jordana-infarct ischemia 01/21 Dyskinesia of esophagus Essential (primary) hypertension Fatty (change of) liver, not elsewhere classified History of heart attack Hypogonadism in male Inguinal hernia (~10/2017) Insomnia Obesity (BMI 30.0-34.9) Obstructive sleep apnea (adult) (pediatric) Other lower urinary tract calculus Overweight (BMI 25.0-29.9) Prediabetes Pure hyperglyceridemia Sacroiliac joint dysfunction of left side Spondylosis without myelopathy or radiculopathy, lumbar region Tenosynovitis of left shoulder Thoracic aortic aneurysm without rupture Tinnitus Umbilical hernia (~01/2014) Unspecified sleep apnea Surgical History Surgical History History of coronary artery stent placement (~10/2009) History of tonsillectomy Hx of cholecystectomy (~08/2004) Status post laser lithotripsy of ureteral calculus Family History Family History Mother Family history of cardiovascular disease Family history of coronary artery disease Family history of malignant neoplasm of breast in first degree relative Father Acute myocardial infarction, Onset Age: 40 Family history of heart disease in male family member before age 55 Other Family history of malignant neoplasm of breast Hypertension Social History Social History Smoking packs per day: 1 Smoking cigarettes per day: 20.0 Years smoked: 25 Smoking pack-years: 25.00 Tobacco type: cigarettes Smoking end date: 05/03/98 Additional smoking assessment comments: 1ppd x20 year smoker Alcohol intake: current Drinks per week: 3 Substance use: never Substance use type: does not use Spiritual care concerns: No Exam Narrative: General appearance: Well-developed, well-nouris
[2021-07-20 18:30] VITALS: BP 143/105; PULSE 97; RESP 18; O2SAT 99
== END 2021-07-20 18:33 | disposition home or self-care (01) ==
PROVIDERS: Emergency Medicine; Emergency Provider Emergency Medicine; PCP Family Medicine
DX: R10.9 Unspecified abdominal pain (principal); N20.0 Calculus of kidney; I25.118 Atherosclerotic heart disease of native coronary artery with other forms of angina pectoris; I42.9 Cardiomyopathy, unspecified; K22.4 Dyskinesia of esophagus; I10 Essential (primary) hypertension; I25.2 Old myocardial infarction; G47.33 Obstructive sleep apnea (adult) (pediatric); E78.00 Pure hypercholesterolemia, unspecified; R73.03 Prediabetes; Z87.442 Personal history of urinary calculi; Z79.82 Long term (current) use of aspirin; Z95.5 Presence of coronary angioplasty implant and graft; Z87.891 Personal history of nicotine dependence
CPT/HCPCS: 36415; 80053; 81001; 85025; 99283

== ENCOUNTER 2021-10-07 10:27 | Outpatient (RCR) | payer BC, SELFPAY ==
[2021-10-07] MEDS: FAMOTIDINE 20 MG TABLET PO (14:22)
[2021-10-07] MEDS: ACETAMINOPHEN 325 MG TABLET 650 MG PO (14:22)
[2021-10-07] MEDS: diphenhydrAMINE HCl CAP 25 MG CAPSULE PO (14:23)
[2021-10-07 14:35] VITALS: BP 147/73; PULSE 75; RESP 18; TEMP 37.1; O2SAT 97
[2021-10-07] MEDS: BEBTELOVIMAB 175 MG/2 ML VIAL IV PUSH (14:52)
[2021-10-07 15:33] VITALS: BP 156/84
--- NOTE | 2021-10-07 15:39 | PC.NURSE ---
Patient's IV discontinued and within normal limits.
== END 2021-10-07 16:00 ==
LOC: AMCINF 10:27
PROVIDERS: PCP Family Medicine; Referring Provider Family Medicine; Visit Provider Internal Medicine Hematology & Oncology
DX: U07.1 COVID-19 (principal); I25.10 Atherosclerotic heart disease of native coronary artery without angina pectoris; I12.9 Hypertensive chronic kidney disease with stage 1 through stage 4 chronic kidney disease, or unspecified chronic kidney disease; N18.9 Chronic kidney disease, unspecified
CPT/HCPCS: A9270; M0222; Q0222

== ENCOUNTER 2022-07-16 15:07 | Outpatient (CLI) | payer BC, SELFPAY ==
[2022-07-16 20:03] LABS: Uric Acid 4.1 mg/dL (3.5-8.5)
== END 2022-07-16 15:08 | disposition home or self-care (01) ==
LOC: ANHGOSHLAB 15:08
PROVIDERS: PCP Family Medicine; Visit Provider Emergency Medicine
DX: M25.472 Effusion, left ankle (principal)
CPT/HCPCS: 36415; 84550

== ENCOUNTER → 2022-07-16 15:19 | Outpatient (CLI) | payer BC, SELFPAY ==
--- NOTE | ~2022-07-16 | XR_ITS ---
XR ankle LT min 3V 07/16/2022 15:27 Indication: Left ankle pain Procedure: 4 views left ankle Comparison: No prior studies for comparison. Findings: Ankle mortise intact. Talar dome is unremarkable. There is atherosclerosis. Small degenerat mary calcaneal enthesophyte at the plantar surface. Mild soft tissue swelling. No fracture or traumati c malalignment. No foreign bodies. Impression: 1: No acute bone or joint abnormality. Reviewed, dictated and finalized at location A. Impression: 1: No acute bone or joint abnormality.
== END ==
PROVIDERS: PCP Emergency Medicine; Visit Provider Emergency Medicine
DX: M25.572 Pain in left ankle and joints of left foot (principal); M25.472 Effusion, left ankle
CPT/HCPCS: 73610

== ENCOUNTER → 2023-03-17 15:52 | Outpatient (CLI) | payer BC, SELFPAY ==
--- NOTE | ~2023-03-17 | MR_ITS ---
MRI of the left shoulder Technique: Axial proton-density fat-sat images, coronal proton density fat-sat and T2 fat-sat images, and sagittal T1-weighted and T2 fat-sat images were acquired. COMPARISON: 01/05/2015 Clinical History: Bursitis Findings: There is advanced AC joint degenerative change, with bony productive change about the joint and mild reactive marrow edema. Coracoclavicular, coracoacromial, and coracohumeral ligaments appear intact. There is severe supraspinatus and infraspinatus tendinosis. Possible tiny linear articular surface pa rtial tear at the distal, anterior infraspinatus insertion. No high-grade partial or full-thickness t ear is seen. Subscapularis tendon is intact with severe tendinosis. Tendon of the long head of the bi ceps is intact. There is near circumferential degenerative labral tearing. There is probable small associated para la bral cyst just deep to the anterior to anterosuperior labrum, measuring 6 mm. There is diffuse glenohumeral joint space narrowing with high-grade chondromalacia and inferomedial h umeral head osteophyte. Inferior glenohumeral ligament is intact. There are small glenohumeral joint effusion with subcoracoid bursitis present. There is minimal fluid in the subacromial/subdeltoid burs a. No muscle atrophy or edema seen. There is cystic enthesopathic change with surrounding reactive ma rrow edema at the greater tuberosity of the humerus. Impression: Circumferential degenerative labral tearing with 6 mm perineural cyst the deep to the anterior to ant erosuperior labrum. Severe glenohumeral joint osteoarthritis, as detailed above. Subcoracoid bursitis, and minimal subacromial/subdeltoid bursitis. Advanced AC joint degenerative change. Severe rotator cuff tendinopathy without high-grade partial or full-thickness tear. Reviewed, dictated and finalized at location M. OLOGY MANAGER Impression: Circumferential degenerative labral tearing with 6 mm perineural cyst the deep to the anterior to anterosuperior labrum. Severe glenohumeral joint osteoarthritis, as detailed above. Subcoracoid bursitis, and minimal subacromial/subdeltoid bursitis. Advanced AC joint degenerative change. Severe rotator cuff tendinopathy without high-grade partial or full-thickness t ear.
== END ==
PROVIDERS: PCP Orthopaedic Surgery; Visit Provider Orthopaedic Surgery
DX: M75.52 Bursitis of left shoulder (principal); G96.191 Perineural cyst; M19.012 Primary osteoarthritis, left shoulder
CPT/HCPCS: 73221

== ENCOUNTER 2023-06-18 13:41 | Outpatient (CLI) | payer BC, SELFPAY ==
[2023-06-18 15:11] LABS: Basophils Percent Auto 0.5 % (0.2-1.2); Eosinophils Absolute Auto 0.2 K/mm3 (0-0.3); Eosinophils Percent Auto 2.6 % (0-4.4); Hematocrit 56.3 % (42.0-52.0); Hemoglobin 18.5 g/dL (14.0-18.0); Immature Granulocyte Absolute 0.01 K/mm3 (0.00-0.031); Immature Granulocyte Percent A 0.2 % (0-0.5); Lymphocytes Absolute Auto 1.88 K/mm3 (0.9-3.2); Lymphocytes Percent Auto 30.7 % (18.3-44.2); Mean Corpuscular HGB Conc 32.9 g/dl (32-36); Mean Corpuscular Hemoglobin 30.7 pg (26-34); Mean Corpuscular Volume 93.5 fl (80-100); Mean Platelet Volume 9.3 fl (7.4-10.4); Monocytes Absolute Auto 0.8 K/mm3 (0.1-0.6); Monocytes Percent Auto 12.6 % (2.6-8.5); Neutrophils Absolute Auto 3.3 K/mm3 (1.3-6.7); Neutrophils Percent Auto 53.4 % (45.5-73.1); Platelet Count Result 202 k/mm3 (150-375); Red Blood Count 6.02 M/mm3 (4.6-6.20); Red Cell Distribution Width 13.8 % (11.5-14.5); White Blood Count 6.1 K/mm3 (4.5-10.0)
[2023-06-18 15:20] LABS: Anion Gap 9 mmol/L (8-16); Blood Urea Nitrogen 18 mg/dL (9-20); Calcium 9.6 mg/dL (8.4-10.2); Carbon Dioxide 26 mmol/L (22-30); Chloride 105 mmol/L (98-107); Estimated Glomerular Filt Rate > 60; Glucose 111 mg/dL (65-110); Potassium 4.3 mmol/L (3.4-5.0); Sodium 140 mmol/L (137-145)
[2023-06-18 16:19] LABS: MRSA (PCR) NOT DETECTED (NOT DETECTE)
== END 2023-06-18 13:42 | disposition home or self-care (01) ==
LOC: ANHSURGERY 13:44
PROVIDERS: Anesthesiology; PCP Family Medicine; Visit Provider Orthopaedic Surgery
DX: Z01.818 Encounter for other preprocedural examination (principal); M19.011 Primary osteoarthritis, right shoulder; E11.9 Type 2 diabetes mellitus without complications
CPT/HCPCS: 36415; 80048; 85025; 87641

== ENCOUNTER 2023-07-15 00:10 | Day surgery (SDC) | payer BC, SELFPAY ==
[2023-06-18 13:59] VITALS: BP 126/74; PULSE 66; RESP 16; TEMP 37; O2SAT 96; BMI 27.1
--- NOTE | 2023-06-18 14:21 | PC.NURSE ---
Report to the Outpatient Waiting Room, entrance under the green pavilion located off [facility], at time __6:00AM on date __07/15/23 . Planned Procedure Time: __7:30AM . Time changes happen often and if your time is changed the preop area will call you the afternoon before. - You and your visitor will be asked to self-screen and do not enter if you have any COVID symptoms. - A mask is optional within the hospital at this time. Patients may have clear liquids (water, carbonated beverages, clear teas, apple juice) until 3 hours prior to surgery with a maximum of 20 ounces. - No food from midnight until time of surgery. Take the following medications with a SIP of water the morning of surgery: METOPROLOL. ALPRAZOLAM NEEDED. DO NOT STOP ANY OF YOUR OTHER PRESCRIPTION MEDICATIONS PRIOR TO SURGERY ?EXCEPT THE FOLLOWING Medications to discontinue per physician ____HOLD ASPIRIN 7 DAYS PRE-OP Date to take last dose____07/17/23 Please no make-up, nail georgian, hairspray, perfume, deodorant, or body powder the day of surgery. No jewelry (including any body piercings) or valuables the day of surgery, leave them at home. Please take a shower or bath the night before, or the morning of, surgery with an antibacterial soap. Wear comfortable, loose fitting clothing. - Jewelry must be removed prior to entering the operating room. Rings and piercings that are not removed may be cut off. - The hospital will not accept responsibility for valuables. - Please leave all valuables, including medications, at home the day of surgery. If you are going home after surgery, a licensed emergency vehicle driver must drive you home. - NO public transportation without another adult if you receive anesthesia. - We recommend that an adult stay with you for 24 hours following discharge. - We also recommend that you do not drive, make important decision, drink alcoholic beverages, or take any drugs that were not prescribed by your health care provider for at least 24 hours after your discharge time. Follow any additional instructions given to you from your surgeon. If you or anyone in your household have experienced Covid symptoms in the past week, please notify your surgeon or the nurse liaison at the phone number below for possible testing. Telephone instructions given to ____PATIENT and asked if any additional questions and then verbalized understanding. Patient advised to call surgeon office or pre surgery nurse liaison [phone] if any additional questions.
--- NOTE | 2023-07-14 10:51 | WPDANESEPPF ---
Anes - Initial Pre Proc Eval Procedure: Operation Date: 07/15/23 07:30 Proposed Procedures p Left Anatomic Total Shoulder Arthroplasty - Junior Gomes MD Date/Time: 07/14/23 10:51 Surgeon: Junior Gomes MD Pre Op Diagnosis: left shoulder primary oa Patient Data Age: 62 Gender: M Height: 1.73 m Weight: 81 kg Last Vital Signs Temp 37.0 C 06/18/23 13:59 Pulse 66 06/18/23 13:59 Resp 16 06/18/23 13:59 BP 126/74 06/18/23 13:59 Pulse Ox 96 06/18/23 13:59 O2 Del Method Room Air 06/18/23 13:59 Allergies Allergy/AdvReac Type Severity Reaction Status Date / Time metformin AdvReac Severe diarrhea Verified 07/15/23 06:06 Home Medications Medication Instructions Recorded Confirmed Type aspirin 81 mg tablet,delayed 81 mg PO DAILY 10/30/20 06/18/23 History release alprazolam 0.25 mg tablet (Xanax) 0.25 mg PO PRN PRN Anxiety 01/09/21 06/18/23 History lidocaine 5 % topical patch See Rx Instructions .Route 01/09/21 06/18/23 History .COMPLEX PRN Pain metaxalone 800 mg tablet (Skelaxin) 800 mg PO PRN PRN muscle pain 05/26/21 06/18/23 History valacyclovir 500 mg tablet 500 mg PO BID PRN HSV #20 tabs 04/28/23 06/18/23 Rx (Valtrex) hydrocodone 5 mg-acetaminophen 325 1 tablet PO Q6H PRN pain #30 tabs 04/29/23 06/18/23 Rx mg tablet zolpidem 5 mg tablet 5 mg PO QHS PRN Insomnia #30 tabs 04/29/23 06/18/23 Rx empagliflozin 25 mg tablet 25 mg PO QAM 06/18/23 06/18/23 History (Jardiance) fluoxetine 20 mg capsule (Prozac) 20 mg PO QPM 06/18/23 06/18/23 History lisinopril 20 mg tablet 20 mg PO QPM 06/18/23 06/18/23 History metoprolol succinate 50 mg 50 mg PO QAM 02/16/24 02/16/24 History tablet,extended release 24 hr semaglutide 1 mg/dose (4 mg/3 mL) 1 mg (0.75 mL) subcut WEEKLY #3 mL 06/21/23 Rx subcutaneous pen injector (Ozempic) testosterone (AndroGel) 4 pump topical DAILY 90 days #300 06/21/23 Rx grams Patient hx anesthesia problems: post op nausea/vomiting Family hx anesthesia problems: none Results Review: All pre-operative results and documents have been reviewed as part of the pre-operative evaluation. [facility] Past Medical History Medical History (Updated 07/14/23 @ 10:53 by Shola Mcgovern, ) Actinic keratosis of forehead Atherosclerotic heart disease of [place] coronary artery with other forms of angina pectoris Bradycardia, drug induced Calculus of kidney Cardiomyopathy ef 55% Dyskinesia of esophagus Essential (primary) hypertension Fatty (change of) liver, not elsewhere classified History of heart attack Hypogonadism in male Inguinal hernia (~10/2017) Insomnia Obesity (BMI 30.0-34.9) Obstructive sleep apnea (adult) (pediatric) Other lower urinary tract calculus Overweight (BMI 25.0-29.9) Prediabetes Pure hyperglyceridemia Sacroiliac joint dysfunction of left side Spondylosis without myelopathy or radiculopathy, lumbar region Tenosynovitis of left shoulder Thoracic aortic aneurysm without rupture Tinnitus Umbilical hernia (~01/2014) Unspecified sleep apnea Surgical History Surgical History History of arthroscopy of right shoulder (~05/30/21) right RCR, SAD, biceps tenodesis, labral JAYLON History of coronary artery stent placement (~10/2009) History of tonsillectomy Hx of cholecystectomy (~08/2004) Status post laser lithotripsy of ureteral calculus Family History Family History Mother Family history of cardiovascular disease Family history of coronary artery disease Family history of malignant neoplasm of breast in first degree relative Father Acute myocardial infarction, Onset Age: 40 Family history of heart disease in male family member before age 55 Other Family history of malignant neoplasm of breast Hypertension Social History Social History (Reviewed 06/18/23 @ 13:47 by Patricia Contreras
[2023-07-15] VITALS (14 sets, daily range): BP systolic 100–128; BP diastolic 61–93; PULSE 73–90; RESP 15–20; TEMP 35.6–36.7; O2SAT 92–97
--- NOTE | ~2023-07-15 | XR_ITS ---
EXAMINATION: XR shoulder LT min 2V DATE: 07/15/2023 10:44 INDICATION: Left shoulder arthroplasty. Postop. TECHNIQUE: 2 views of left shoulder were obtained. COMPARISON: Left shoulder radiographs 03/03/2023 FINDINGS: There is a reverse ictg-pkd-zhuawu total left shoulder arthroplasty in near-anatomic alignm ent. No fracture. There is mild left acromioclavicular joint osteoarthritis. There is gas in the soft tissues, consistent with recent surgery. IMPRESSION: 1. Reverse fwoa-[id number]-[id number] total left shoulder arthroplasty in near-anatomic alignment. Reviewed, dictated and finalized at location A. IMPRESSION: 1. Reverse gfdi-yyg-tzsbmd total left shoulder arthroplasty in near-anatomic al ignment.
[2023-07-15] MEDS: ACETAMINOPHEN 500 MG TABLET 1000 MG PO ×3 (06:09→17:10)
[2023-07-15 06:41] LABS: Glucose Point of Care 125 mg/dl (65-105)
[2023-07-15] MEDS: LACTATED RINGERS 1,000 ML 30 ML IV CONT ×2 (06:58→10:27)
[2023-07-15] MEDS: TRANEXAMIC ACID 1,000MG/ISO100 1,000 MG/100 ML BAG 200 MG IVPB (06:58)
--- NOTE | 2023-07-15 07:19 | WPDHPUPDATE1 ---
History and Physical Update Update Date/Time: 07/15/23 07:19 History and Physical has been reviewed, including an updated exam of the patient. There are NO changes in the patient's condition. Risks, benefits, and alternatives have been discussed and questions answered. Patient agrees to proceed with procedure.
--- NOTE | 2023-07-15 07:41 | WPDANESPNB ---
Anes - Peripheral Nerve Block Date/Time: 07/15/23 07:41 I have discussed with the patient/family/POA the placement of a peripheral nerve block for post-operative pain management, including associated risks, benefits, complications, and side effects. Alternative methods of post-operative analgesia were detailed. Questions were solicited and answers provided to the satisfaction of the patient/family/POA. Time-Out: A pre-procedural Time-Out was completed immediately before starting the procedure and confirmed: Patient Identification, Site, Procedure, Patient Position and the Availability of Requisite Equipment. Clinical Indications: Acute post-operative pain management requested by the operative surgeon. Nerve Block Insertion Note Anes-nerve block: interscalene left Patient position: supine Skin prep: chlorhexidine Needle: 22 gauge, stimulating, insulated echogenic needle. Needle length: 50 mm Technique: ultrasound Injectate: bupivacaine 0.5% with epi 5 mcg/ml (30cc- no epi) Observations: tolerated well Complications: none Procedure start time:: 734 Procedure end time:: 737
[2023-07-15] MEDS: ceFAZolin 2 GM/D5W 50 ML 2 GM/50 ML BAG IVPB ×2 (07:42→16:02)
[2023-07-15] MEDS: SODIUM CHLORIDE 0.9% IV 37.7 ML, MORPHINE SULFATE INJ (*CRX) 2 MG, ROPivacaine HCL 1% 2... INFILTRATE (08:24)
[2023-07-15] MEDS: VANCOMYCIN HCL 1,000 MG VIAL 1000 MG TOPICAL (08:26)
[2023-07-15 10:38] LABS: Glucose Point of Care 153 mg/dl (65-105)
--- NOTE | 2023-07-15 10:42 | W.PM.PROC2 ---
Procedure Note - Detailed Date of Procedure 07/15/23 Pre-op Diagnosis left shoulder primary oa Post-op Diagnosis Same Procedure Performed Reverse total shoulder arthroplasty, left Surgeon Junior Gomes MD Fish Processing Supervisor Patricia Castaneda PA-C Anesthesia General and Regional (Interscalene block.) Findings Moderate degenerative changes at the glenohumeral joint. Significant degeneration of the supraspinatus extending towards the infraspinatus. Mid grade articular tearing. Because of these findings it was elected to proceed with reverse total shoulder arthroplasty. Description of Procedure The patient was given an interscalene block in the preoperative area. Preoperative antibiotics were given. The patient was transferred to the operating room and a general anesthetic was administered. The beach chair position was used at 45 degrees. All bony prominences were padded. The head was carefully stabilized on the [facility] head charrer. A sterile prep and drape was performed in the usual manner with ChloraPrep. A longitudinal incision was created at the anterior shoulder just lateral to the deltopectoral interval. Hydrogen peroxide was placed on the incision and then rinsed after one minute. Careful dissection was performed to expose the interval and protect the cephalic vein. The vein was retracted medially. The upper border of the pectoralis was released. Anterior circumflex vessel branches were suture ligated. The biceps was [tenodesed]. A subscapularis tenotomy was performed. The inferior capsule was released, exposing the humeral head. Osteophytes were removed. Care was taken to stay on bone to protect the axillary nerve. The anatomic head cut was taken with the oscillating saw. The guide pin was placed, central drilling performed, and the broach trial inserted. The neck anteversion and inclination were carefully assessed. The cut protector was placed, and attention was turned to the glenoid. Retractors were placed. Releases were carried out for exposure. The subscapularis was mobilized, the inferior capsule and long head of triceps released, and the superior and middle glenohumeral ligaments released as well. Labral tissue was resected as needed. The sizing template was used to assess the baseplate position low on the glenoid. A guide pin was placed. Minimal reaming was used to accomplish a flat surface without violating the subchondral bone. Version was corrected according to preoperative templating. The boss was drilled, and the real component was impacted into position. Supplemental locking screws were placed centrally, superiorly, and inferiorly. The glenosphere was impacted into the taper. The proximal humerus was reamed for the inset component. The humeral components were trialed. The real humeral stem, tray, and insert were impacted into position. The shoulder was copiously irrigated periodically with pulsatile lavage. The shoulder was reduced and stability confirmed. 1 gram of Vancomycin powder was placed in the joint. The biceps tenodesis was incorporated with the pectoralis tendon repair. The deltopectoral space was reapproximated with number 1 Vicryl. The remaining tissue was closed with 0 Quill and 2-0 Quill running suture and steri-strips. A sterile silver occlusive dressing and shoulder immobilizer were placed. The patient was transferred to the recovery room. Physician clinical trials assistant, Patricia Castaneda PA-C, required for surgery; including patient positioning, draping, tissue retraction, maintaining instrument position, wound closure, and dressing placement. Implants Shoulder Innovations reverse TSA size 0 stem. +0 polyethylene insert. Standard baseplate. 36+ 6 mm glenosphere. Estimated Blood Loss 150 Drains No Pathology None sent Complications No immediate complications Condition Stable Disposition PACU [facility] Billing Surgery - Charge Forward: Surgery Billing
--- NOTE | 2023-07-15 11:45 | ADMGEN ---
This patient, Mark Barnard, was admitted to -. Patient/family oriented to hospital policies and general routines including ID bracelet, bed and alarms, visiting hours, pain management, procedures, bathroom and other care routines, personal items, smoking policy, room service/diet, and visiting hours. Information on how to activate the Rapid Response Team has been discussed. Patient/Family are encouraged to report perceived risks to care and to ask questions if they do not understand what they are told or what they should do.
[2023-07-15] MEDS: SENNA/DOCUSATE SODIUM TABLET 2 TAB PO (16:02)
[2023-07-15] MEDS: ASPIRIN 81 MG ENTERIC TABLET PO (16:02)
[2023-07-15] MEDS: MELOXICAM 7.5 MG TABLET PO (16:03)
[2023-07-15] MEDS: oxyCODONE HCL (*CRX) 5 MG TAB IR PO (17:09)
[2023-07-15] MEDS: FLUoxetine HCL 20 MG CAPSULE PO (17:10)
[2023-07-15] MEDS: lisinopriL 20 MG TABLET PO (17:10)
[2023-07-15] MEDS: CYCLOBENZAPRINE HCL 10 MG TABLET PO (18:58)
[2023-07-15] MEDS: traMADol HCL (*CRX) 50 MG TABLET PO (18:58)
[2023-07-15 20:55] LABS: Glucose Point of Care 159 mg/dl (65-105)
[2023-07-15] MEDS: FAMOTIDINE 20 MG TABLET PO (21:17)
[2023-07-16] MEDS: ACETAMINOPHEN 500 MG TABLET 1000 MG PO ×2 (00:26→06:01)
[2023-07-16] MEDS: ceFAZolin 2 GM/D5W 50 ML 2 GM/50 ML BAG IVPB ×2 (00:26→09:20)
[2023-07-16 00:33] VITALS: BP 108/55; PULSE 72; RESP 14; TEMP 36.1; O2SAT 95
[2023-07-16 05:25] VITALS: BP 108/51; PULSE 68; RESP 12; TEMP 36.3; O2SAT 98
[2023-07-16 07:50] LABS: Anion Gap 3 mmol/L (8-16); Blood Urea Nitrogen 23 mg/dL (9-20); Calcium 8.4 mg/dL (8.4-10.2); Carbon Dioxide 26 mmol/L (22-30); Chloride 106 mmol/L (98-107); Estimated CRCL calculation 79 ml/min; Estimated Glomerular Filt Rate > 60; Glucose 140 mg/dL (65-110); Potassium 3.5 mmol/L (3.4-5.0); Sodium 135 mmol/L (137-145)
[2023-07-16 07:57] LABS: Basophils Percent Auto 0.4 % (0.2-1.2); Eosinophils Absolute Auto 0.1 K/mm3 (0-0.3); Eosinophils Percent Auto 1.1 % (0-4.4); Hematocrit 51.1 % (42.0-52.0); Hemoglobin 16.4 g/dL (14.0-18.0); Immature Granulocyte Absolute 0.04 K/mm3 (0.00-0.031); Immature Granulocyte Percent A 0.4 % (0-0.5); Lymphocytes Absolute Auto 1.26 K/mm3 (0.9-3.2); Lymphocytes Percent Auto 12.1 % (18.3-44.2); Mean Corpuscular HGB Conc 32.1 g/dl (32-36); Mean Corpuscular Hemoglobin 30.9 pg (26-34); Mean Corpuscular Volume 96.2 fl (80-100); Mean Platelet Volume 9.5 fl (7.4-10.4); Monocytes Absolute Auto 1.1 K/mm3 (0.1-0.6); Neutrophils Absolute Auto 7.8 K/mm3 (1.3-6.7); Platelet Count Result 167 k/mm3 (150-375); Red Blood Count 5.31 M/mm3 (4.6-6.20); Red Cell Distribution Width 14.1 % (11.5-14.5); White Blood Count 10.4 K/mm3 (4.5-10.0)
[2023-07-16] MEDS: oxyCODONE HCL (*CRX) 5 MG TAB IR PO (08:20)
[2023-07-16] MEDS: ASPIRIN 81 MG ENTERIC TABLET PO (08:20)
[2023-07-16 08:21] VITALS: PULSE 68
[2023-07-16] MEDS: MELOXICAM 7.5 MG TABLET PO (08:21)
[2023-07-16] MEDS: METOPROLOL SUCCINATE EXT REL 50 MG TABCR PO (08:21)
[2023-07-16] MEDS: FAMOTIDINE 20 MG TABLET PO (08:22)
[2023-07-16] MEDS: polyethylene glycoL 3350 17 GM POWD.PACK PO (08:22)
[2023-07-16] MEDS: ALPRAZolam (*CRX) 0.25 MG TABLET PO (08:22)
[2023-07-16] MEDS: EMPAGLIFLOZIN 25 MG TABLET PO (08:22)
--- NOTE | 2023-07-16 08:59 | PM.DS ---
DS: Admitting Diagnosis Discharge Date 07/16/23 Admitting Diagnosis Right glenohumeral joint arthritis. DS: Discharge Diagnosis Discharge Diagnosis (1) Status post reverse total arthroplasty of left shoulder: Code(s): Z96.612 - Presence of left artificial shoulder joint Status: Acute Assessment and Plan: Postop day 1: Left reverse total shoulder arthroplasty. Patient tolerated procedure well. No complications. Pain manageable with pain medication. No numbness or tingling. We had a lengthy discussion regarding postoperative wound care, limitations, expectations, and exercises. Patient shows good understanding. He has had initial physical therapy and is tolerating it well. DVT prophylaxis: 81 mg baby aspirin b.i.d. for 14 days. Pain medication: Percocet. Patient has followup appointment with Dr. Gomes in 3 weeks. DS: Summary Hospital Course Hospital Course: He has had initial PT/OT and is tolerating it well. Status at Discharge Functional status at discharge: independent ambulation Overall status at discharge: patient is progressing back to baseline Time Spent with Patient Time attestation: Total time spent providing and/or coordinating discharge services: Exam Narrative: Normal weight 62 y/o male. Resting comfortably in bed. Wearing sling. Dressing dry and intact with no drainage. Moderate swelling. Moderate ecchymosis. No erythema. No hematoma. Range of motion limited due to pain. Calf nontender. Neurologic status intact. No varicosities. Distal pulses palpable. Deltoid fires. DS: Data Data Completed and Pending Labs on day of discharge: Labs from last 24 hours 07/16/23 07/15/23 07/15/23 07:07 20:53 10:32 WBC 10.4 H RBC 5.31 Hgb 16.4 Hct 51.1 MCV 96.2 MCH 30.9 MCHC 32.1 RDW 14.1 Plt Count 167 MPV 9.5 Immature Gran % (Auto) 0.4 Neut % (Auto) 75.0 H Lymph % (Auto) 12.1 L Graham % (Auto) 11.0 H Eos % (Auto) 1.1 Baso % (Auto) 0.4 Lymph # (Auto) 1.26 Graham # (Auto) 1.1 H Eos # (Auto) 0.1 Baso # (Auto) 0.0 Abs Immat Gran (auto) 0.04 H Absolute Neuts (auto) 7.8 H Absolute Nucleated RBC 0.000 Nucleated RBC % 0.0 Sodium 135 L Potassium 3.5 Chloride 106 Carbon Dioxide 26 Anion Gap 3 L BUN 23 H Creatinine 0.80 Estim Creat Clear Calc 79 Estimated GFR > 60 Glucose 140 H POC Capillary Glucose 159 H 153 H Calcium 8.4 Discharge Plan Discharge Patient Disposition: Home, Self-Care Discharge Instructions: See green instruction sheets Stand Alone Forms: General Discharge Instructions Follow-up/Referrals: Patricia Castaneda PA [Physician Sas Bi Developer] - Discharge Medications: New aspirin 81 mg tablet,delayed release (DR/EC) 81 mg PO BID 14 Days Qty: 28 0RF oxycodone-acetaminophen 5-325 mg tablet 1 - 2 tablet PO Q4-6H MDD 6 PRN (Reason: pain) Qty: 30 0RF Continued aspirin 81 mg tablet,delayed release (DR/EC) 81 mg PO DAILY zolpidem 5 mg tablet 5 mg PO QHS PRN (Reason: Insomnia) Qty: 30 0RF lidocaine 5 % adhesive patch,medicated See Rx Instructions .ROUTE .COMPLEX PRN (Reason: Pain) Rx Instructions: APPLY TO AFFECTED AREA (BACK) ONCE A DAY NEEDED *LEAVE ON FOR 12 HOURS THEN REMOVE FOR 12 HOURS* alprazolam [Xanax] 0.25 mg tablet 0.25 mg PO TID PRN (Reason: Anxiety) metaxalone [Skelaxin] 800 mg tablet 800 mg PO PRN PRN (Reason: muscle pain) metoprolol succinate 50 mg tablet extended release 24 hr 50 mg PO QAM lisinopril 20 mg tablet 20 mg PO QPM fluoxetine [Prozac] 20 mg capsule 20 mg PO QPM Jardiance 25 mg tablet 25 mg PO QAM valacyclovir [Valtrex] 500 mg tablet 500 mg PO BID PRN (Reason: HSV) Qty: 20 5RF Ozempic 1 mg/dose (4 mg/3 mL) pen injector 1 mg subcut WEEKLY Qty: 3 0RF testosterone [AndroGel] 20.25 mg/1.25 gram (1.62 %) gel in m
[2023-07-16 09:42] VITALS: BP 102/53; PULSE 78; RESP 16; TEMP 36.4; O2SAT 94
== END 2023-07-16 10:00 | disposition home or self-care (01) ==
LOC: ANHSURGERY 07:22 → ANH3MEDSUR 11:59
PROVIDERS: Physician Assistant Surgical; PCP Family Medicine; Visit Provider Orthopaedic Surgery
PROC: (CPT 23472; principal; 2023-07-15 07:30)
DX: M19.012 Primary osteoarthritis, left shoulder (principal); G89.18 Other acute postprocedural pain; I25.10 Atherosclerotic heart disease of native coronary artery without angina pectoris; I42.9 Cardiomyopathy, unspecified; I10 Essential (primary) hypertension; I25.2 Old myocardial infarction; K76.0 Fatty (change of) liver, not elsewhere classified; G47.33 Obstructive sleep apnea (adult) (pediatric); E78.00 Pure hypercholesterolemia, unspecified; M47.816 Spondylosis without myelopathy or radiculopathy, lumbar region; R73.03 Prediabetes; I71.20 Thoracic aortic aneurysm, without rupture, unspecified; Z95.5 Presence of coronary angioplasty implant and graft; Z87.891 Personal history of nicotine dependence; Z79.82 Long term (current) use of aspirin; Z79.84 Long term (current) use of oral hypoglycemic drugs; Z79.85 Long-term (current) use of injectable non-insulin antidiabetic drugs
CPT/HCPCS: 23472; 64415; 36415; 73030; 80048; 82948; 85025; 86850; 86900; 86901; 97110; 97116; 97161; 97165; 97535; A4565; A9270; C1776; J0171; J0690; J1100; J1885; J2250; J2270; J2371; J2405; J2704; J2795; J3010; J3370; J7120

== ENCOUNTER 2023-09-01 13:08 | Outpatient (CLI) | payer BC, SELFPAY ==
--- NOTE | ~2023-09-01 | XR_ITS ---
Left Shoulder Technique: AP and scapular Y views were obtained. Clinical History: Arthroplasty COMPARISON: 07/15/2023 Findings: No fracture or dislocation is seen. Left shoulder arthroplasty is unchanged. Probable posto perative fragment or soft tissue mineralization along the medial aspect of the proximal humerus. Soft tissues are unremarkable. Impression: Stable left shoulder arthroplasty. Postoperative fragment or soft tissue mineralization along the medial segment of the proximal humerus . Reviewed, dictated and finalized at location M. Impression: Stable left shoulder arthroplasty. Postoperative fragment or soft tissue mineralization along the medial segment o f the proximal humerus.
== END 2023-09-01 13:09 | disposition home or self-care (01) ==
LOC: ANHIMG 13:12
PROVIDERS: PCP Family Medicine; Visit Provider Orthopaedic Surgery
DX: Z96.612 Presence of left artificial shoulder joint (principal); Z98.890 Other specified postprocedural states
CPT/HCPCS: 73030

== ENCOUNTER 2023-10-21 10:46 | Outpatient (CLI) | payer BC, SELFPAY ==
--- NOTE | ~2023-10-21 | XR_ITS ---
XR shoulder LT min 2V Ordering provider: Junior Gomes MD History: . Z47.1 - Aftercare following joint replacement surgery, F/U . Comparison: September 01, 2023 FINDINGS: BONES: No acute fracture or dislocation. JOINT SPACES: The acromioclavicular joint is normal. Left shoulder arthroplasty. SOFT TISSUES: Normal. IMPRESSION: No acute osseous abnormality left shoulder. Left shoulder arthroplasty. Reviewed, dictated and finalized at location A.
== END 2023-10-21 10:47 | disposition home or self-care (01) ==
LOC: ANHIMG 10:47
PROVIDERS: PCP Family Medicine; Visit Provider Orthopaedic Surgery
DX: Z47.1 Aftercare following joint replacement surgery (principal)
CPT/HCPCS: 73030

== ENCOUNTER 2023-11-08 16:42 | Outpatient (CLI) | payer BC, SELFPAY ==
--- NOTE | ~2023-11-08 | XR_ITS ---
XR shoulder LT min 2V Ordering provider: Junior Gomes MD History: . Z96.612 - Presence of left artificial shoulder joint . Comparison: October 21, 2023 FINDINGS/impression: Left shoulder arthroplasty with small bony fragment inferior to the arthroplasty which may be acute o r postoperative and seen since September 01, 2023. No change from previous examinations. Reviewed, dictated and finalized at location A.
== END 2023-11-08 16:43 | disposition home or self-care (01) ==
LOC: ANHIMG 16:43
PROVIDERS: PCP Family Medicine; Visit Provider Orthopaedic Surgery
DX: Z96.612 Presence of left artificial shoulder joint (principal)
CPT/HCPCS: 73030

== ENCOUNTER 2024-01-25 14:20 | Outpatient (CLI) | payer BC, SELFPAY ==
--- NOTE | ~2024-01-25 | XR_ITS ---
XR shoulder LT min 2V Ordering provider: Junior Gomes MD History: . M19.012 - Primary osteoarthritis, left shoulder . Comparison: November 08, 2023 FINDINGS: BONES: No acute fracture or dislocation. JOINT SPACES: The acromioclavicular joint is normal. Left shoulder arthroplasty. SOFT TISSUES: Normal. IMPRESSION: No acute osseous abnormality left shoulder. Left total shoulder arthroplasty. Reviewed, dictated and finalized at location A.
--- NOTE | ~2024-01-25 | XR_ITS ---
XR_CERV2-3V_CR Ordering provider: Junior Gomes MD History: . M54.2 - Cervicalgia . Comparison: None. FINDINGS: VERTEBRAL BODIES: Loss of volume of C4 with oblique lucency is noted. CT evaluation advised. Otherwis e, Normal height and alignment. No visible fracture or subluxation. The dens is intact. DISK SPACES: Narrowing of the disc C3-C4, C4-C5, C5-C6 and C6-C7. Multilevel uncovertebral joint oste oarthritic changes. Multilevel facet joint disease. PARASPINOUS SOFT TISSUES: No prevertebral soft tissue swelling. IMPRESSION: Loss of volume of C4 with oblique opacity and adjacent sclerotic changes in both vertebrae C3 and C4. CT evaluation advised. Clinical evaluation for previous surgical intervention advised. Otherwise, No acute osseous abnormality cervical spine. Multilevel degenerative disc disease. Reviewed, dictated and finalized at location A. IMPRESSION: Loss of volume of C4 with oblique opacity and adjacent sclerotic changes in bot h vertebrae C3 and C4. CT evaluation advised. Clinical evaluation for previous surgical intervention advised. Otherwise, No acute osseous abnormality cervical spine. Multilevel degenerative disc disease.
== END 2024-01-25 14:21 | disposition home or self-care (01) ==
LOC: ANHIMG 14:25
PROVIDERS: PCP Family Medicine; Visit Provider Orthopaedic Surgery
DX: M19.012 Primary osteoarthritis, left shoulder (principal); M50.30 Other cervical disc degeneration, unspecified cervical region
CPT/HCPCS: 72040; 73030

== ENCOUNTER 2024-01-28 18:52 | Inpatient (IN) | payer MEDICARE, BC, SELFPAY ==
--- NOTE | ~2024-01-28 | CT_ITS ---
EXAMINATION: CT abdomen pelvis wo con DATE: 01/28/2024 20:02 INDICATION: abd pain, hx stones TECHNIQUE: Computed tomography (CT) of the abdomen and pelvis was performed without intravenous contr ast. Automated exposure control and iterative reconstruction technique were employed. The dose-length product was 837.23 mGy-cm. COMPARISON: 12/30/2020. FINDINGS: Lower thorax: Motion artifact in the lung bases. Coronary artery calcifications. Liver: Normal. Biliary/Gallbladder: Gallbladder is absent. No bile duct dilation. Pancreas: No mass or duct dilation. Spleen: Normal. Adrenals:No mass. Kidneys: Parapelvic cysts bilaterally. Mild left and moderate right pelvocaliectasis. Multiple nonobs tructing bilateral calcifications. GI tract: Loop of mildly dilated small bowel in the left abdomen, no transition points or evidence of a C-loop-type obstruction. No large bowel dilation. Normal appendix. Diverticulosis without divertic ulitis. Mesentery/Peritoneum: No ascites, mass, or free air. Retroperitoneum: No mass. Pelvis: Pelvic organs are within normal limits. Soft Tissues: Uncomplicated fat-containing anterior abdominal and bilateral inguinal hernias. Midline abdominal wall hernia mesh. Bones: No acute osseous finding. IMPRESSION: Mild left and moderate right UPJ obstruction, likely chronic. No obstructing stone or mass detected. Mildly dilated small bowel loop in the mid abdomen, no transition point or obstructing mass. This may represent localized ileus. Early obstruction is not excluded. Reviewed, dictated and finalized at location K. IMPRESSION: Mild left and moderate right UPJ obstruction, likely chronic. No obstructing st one or mass detected. Mildly dilated small bowel loop in the mid abdomen, no transition point or obst ructing mass. This may represent localized ileus. Early obstruction is not excl uded.
--- NOTE | ~2024-01-28 | CT_ITS ---
EXAMINATION: CTA chest PE protocol DATE: 01/28/2024 21:22 INDICATION: hypoxia, tachycardia, recent surgery TECHNIQUE: Computed tomography angiography (CTA) of the chest was performed with 100 mL Omnipaque-350 intravenous contrast timed to evaluate the pulmonary arteries. Coronal maximum intensity projection 3D-reconstructions were created by the technologist. The dose-length product (DLP) was 371.05 mGy-cm. Automated exposure control and iterative reconstruction technique were employed. COMPARISON: CT chest and abdomen 06/15/2013. FINDINGS: Lung parenchyma and airways: Moderate motion artifact in the lungs. Dependent atelectasis. Patent air ways.. Pleura: Unremarkable. Thoracic inlet, axillae and chest wall: Unremarkable. Thoracic aorta: Ascending aortic ectasia measuring up to 4.2 cm. No dissection. Mediastinum: Calcified prevascular node. Heart and pericardium: Cardiomegaly. Coronary artery calcifications: Moderate. Upper abdomen: No significant finding. Bones: No acute osseous finding. Partially visualized left shoulder is posterior hardware. Pulmonary arteries: Study quality: Significant motion artifact which obscures segmental and subsegmen devendra pulmonary arteries. No central pulmonary emboli detected. IMPRESSION: Examination limited by motion artifact. Segmental and subsegmental pulmonary arteries not well evalua criss. No central embolus detected. No acute process detected in the chest. Reviewed, dictated and finalized at location K. IMPRESSION: Examination limited by motion artifact. Segmental and subsegmental pulmonary ar teries not well evaluated. No central embolus detected. No acute process detected in the chest.
[2024-01-28 18:59] VITALS: BP 132/83; PULSE 116; RESP 20; TEMP 36.9; O2SAT 99
--- NOTE | 2024-01-28 19:32 | ECG_ITS ---
Test Date: 2024-01-28 20:44:44 Measurements Intervals Clark Rate: 129 P: 29 [place]: 180 QRS: -28 QRSD: 85 T: -7 QT: 266 QTc: 391 Interpretive Statements SINUS TACHYCARDIA LEFT VENTRICULAR HYPERTROPHY WITH ST-T CHANGE BORDERLINE R WAVE PROGRESSION, ANTERIOR LEADS CONSIDER INFERIOR INFARCT, AGE INDETERMINATE BASELINE ARTIFACT- I, II, III, AVR, AVL, AVF ABNORMAL ECG No previous ECG available for comparison Electronically Signed On 01-29-2024 09:04:24 CDT by Rk Dale D.O.
--- NOTE | 2024-01-28 19:36 | ED_ITS ---
HPI - Male Genitourinary General Chief complaint: Urogenital-Male Stated complaint: Kidney stones Time Seen by Provider: 01/28/24 19:25 History of Present Illness HPI Narrative: 63-year-old male with a past medical history significant for multiple kidney stones with previous stenting, coronary disease with stent, recent right shoulder surgery. Patient presents to the emergency department chief complaint of fever, chills, rigors and right-sided abdominal pain in his flank radiating t owards his right groin. He states he feels like he has a kidney stone and has similar presentations last time he had a passes stone 1 year prior. Took Flomax at home without any significant improvement in symptoms. His urologist is Dr. Andujar. States for last 3 or so days he has been having intractable chills and shakes associated with his pain. Having difficulty urinating and some blood in urination when he went to the bathroom most recently. States he did have a fever earlier today and took Tylenol. Denies any headache, vision changes, nauseous, vomiting, chest pain, shortness a breath, weakness fatigue. Was otherwise in his normal state of health this past week. Related Data Home Medications Medication Instructions Recorded Confirmed aspirin 81 mg tablet,delayed 81 mg PO DAILY 10/30/20 01/29/24 release alprazolam 0.25 mg tablet (Xanax) 0.25 mg PO TID PRN Anxiety 01/09/21 01/29/24 lidocaine 5 % topical patch See Rx Instructions .Route 01/09/21 01/29/24 .COMPLEX PRN Pain fluoxetine 20 mg capsule (Prozac) 20 mg PO QPM 06/18/23 01/29/24 lisinopril 20 mg tablet 20 mg PO QPM 06/18/23 01/29/24 metoprolol succinate 50 mg 50 mg PO QAM 06/18/23 01/29/24 tablet,extended release 24 hr Allergies Allergy/AdvReac Type Severity Reaction Status Date / Time metformin AdvReac Severe diarrhea Verified 01/26/24 08:35 rosuvastatin AdvReac Intermediate myalgia Uncoded 01/05/24 13:25 Review of Systems Review of Systems: As reviewed above in HPI FOR[facility] Past Medical History Medical History (Updated 01/29/24 @ 07:53 by Christopher Sam MD) Actinic keratosis of forehead Atherosclerotic heart disease of [place] coronary artery with other forms of angina pectoris BPH (benign prostatic hyperplasia) Bradycardia, drug induced Calculus of kidney Cardiomyopathy ef 55% Dyskinesia of esophagus Essential (primary) hypertension Fatty (change of) liver, not elsewhere classified History of heart attack Hypogonadism in male Inguinal hernia (~10/2017) Insomnia Obesity (BMI 30.0-34.9) Obstructive sleep apnea (adult) (pediatric) Other lower urinary tract calculus Overweight (BMI 25.0-29.9) Prediabetes Pure hyperglyceridemia Sacroiliac joint dysfunction of left side Spondylosis without myelopathy or radiculopathy, lumbar region Tenosynovitis of left shoulder Thoracic aortic aneurysm without rupture Tinnitus Umbilical hernia (~01/2014) Unspecified sleep apnea Surgical History Surgical History History of arthroscopy of right shoulder (~05/30/21) right RCR, SAD, biceps tenodesis, labral JAYLON History of coronary artery stent placement (~10/2009) History of shoulder replacement History of tonsillectomy Hx of cholecystectomy (~08/2004) Status post laser lithotripsy of ureteral calculus Status post reverse total shoulder replacement Family History Family History Mother Family history of cardiovascular disease Family history of coronary artery disease Family history of malignant neoplasm of breast in first degree relative Father Acute myocardial infarction, Onset Age: 40 Family history of heart disease in male family member before age 55 Other Family history of malignant neoplasm of breast Hypertension Social History Social History (Updated 01/29/24 @ 04:07 by Thao Peraza DO) Social History: Code status: Surrogate decision maker: Diya (spouse) Smoking packs per day: 1 Smoking cigarettes per day: 20.0 Years smoked: 20 Smoking pack-years: 20.00 Smoking status: Former smoker Second hand tobacco smoke exposure: No Additional smoking assessment comments: 1ppd x20 year smoker Alcohol intake: current Drinks per week: 3 Substance use: never Substance use type: does not use Do You Feel Safe in your Home?: Yes Lack of Transportation: No Lack of Food: Never True Current Housing: I Have Housing Concerned About Future Housing: No Difficulty Paying Gas/Electric Bills: No Difficulty Paying for Meds: No Currently Unemployed: No Education: Decline to Answer Difficulty w/ Childcare or Family Care: No Living arrangements: with family Additional living arrangements comments: Spiritual care concerns: No Exam Narrative: GENERAL: Very uncomfortable appearing, shaking during examination with chills, awake and answering questions appropriately HEAD: [Normocephalic, atraumatic.] EYES: [PERRLA and EOMI.] ENT: Nares clear, no rhinorrhea or epistaxis. Mucous membranes moist. NECK: Supple. CHEST: [Clear to auscultation. No respiratory distress.] HEART: Tachycardic pulse with regular rhythm. No murmur heard. [Normal peripheral pulses.] ABDOMEN: [Soft, nondistended], tender palpation the right lower quadrant and right flank, [No rigidity or guarding] EXTREMITIES: Normal range of motion. [No edema.] SKIN: Warm, dry, no rash. NEURO: [No focal deficits]. Alert and oriented [x3.] PSYCH: [Normal mood and affect.] Course Vital Signs Vital signs: Vital Signs Temperature 36.9 C 01/28/24 18:59 Pulse Rate 116 H 01/28/24 18:59 Respiratory Rate 20 01/28/24 18:59 Blood Pressure 132/83 01/28/24 18:59 Pulse Oximetry 99 01/28/24 18:59 Oxygen Delivery Room Air 01/28/24 18:59 Temperature 36.5 C 01/29/24 05:25 Pulse Rate 79 01/29/24 06:00 Respiratory Rate 16 01/29/24 05:25 Blood Pressure 97/56 L 01/29/24 05:25 Pulse Oximetry 93 01/29/24 05:25 Oxygen Delivery Nasal Cannula 01/28/24 21:50 Oxygen Flow Rate 3 01/28/24 21:50 MDM - Male Genitourinary MDM Narrative Medical decision making narrative: 63-year-old male with a past medical history significant for previous kidney stones requiring stents, coronary disease with stents, recent shoulder surgery. Presenting today with right-sided flank pain right-sided abdominal pain, difficulty urinating and blood in his urine. He is also having vigorous shakes and chills with fever at home. He thinks he has an infection or a kidney stone or combination of both. He appears uncomfortable appearing any acute pain but is able to converse in full sentences. He is mildly tachycardic but does not have a fever here. Blood pressure within normal limits, saturating well on room air. Abdomen is nonsurgical but does have tenderness in the right flank and lower abdomen. Differential diagnosis includes kidney stone, ureteral stone, infections such as urinary tract infection or infected kidney stone less likely other intra-abdominal process such as appendicitis, cholelithiasis, cholecystitis. He was provide analgesia with Dilaudid, 2 L of lactated Ringer's, urinalysis, urine culture, blood cultures, CBC, CMP, lipase lactic acid were ordered. A CT scan without contrast with attention to kidney stone p rotocol was ordered. Patient was evaluated after pain medications and had significant improvement in his rigors, shakes and was no longer in intense pain. Once he settled down he was noted to be hypoxic in the mid 80s to 85% on room air. He was breathing in the 30s and had good respiratory effort this is not likely secondary to the analgesia medications. He was placed on supplemental oxygenation and titrated to 94% on 3 L. he was persistently tachycardic in the 120s to 130s. At this time considerations to broaden his workup were ordered including a CT PE protocol given his recent surgical procedure in his right shoulder. He was started on antibiotics including ceftriaxone for urological source presumptively, blood cultures were obtained as well as lactic acid. Workup revealed no leukocytosis, hemoglobin 18.6 in line with his previous levels. Electrolytes largely within normal limits, BUN slightly elevated 23 but creatinine normal at 0.90. Normal hepatic function panel, lactic acid elevation of 2.8. Lipase negative at 142. Urinalysis showed florid urinary tract infection. CT abdomen pelvis shows mild left and moderate right UPJ obstructions which are chronic, no obstructing stone or masses were detected. He has mildly dilated small bowel loops but no transition point or obstructing mass. Likely localized ileus as he has no GI concerns, going to the restroom and defecating and passing gas without difficulty, no nausea or vomiting. CT PE protocol was limited by motion artifact but no central pulmonary embolism was detected and no acute process was detected in the chest such as a pneumonia. Segmental and subsegmental PEs are not excluded on the scan. Patient will require admission to the hospital at this time for his hypoxia, lactic acidosis, elevated pulse and urinary tract infection which raises suspicion for sepsis from a urological source. Blood cultures are pending. Will discuss with the hospitalist regarding admission. After discussions with the hospitalist patient was admitted to the intermediate care unit for continued evaluation and treatment of sepsis with likely source being neurological in nature. Lab Data 01/28/24 20:31 01/28/24 20:31 Labs: Lab Results 01/28/24 01/28/24 01/28/24 Range/Units 20:30 20:31 20:32 WBC 6.2 (4.5-10.0) K/mm3 RBC 5.82 (4.6-6.20) M/mm3 Hgb 18.6 H (14.0-18.0) g/dL Hct 53.9 H (42.0-52.0) % MCV 92.6 (80-100) fl MCH 32.0 (26-34) pg MCHC 34.5 (32-36) g/dl RDW 13.7 (11.5-14.5) % Plt Count 156 (150-375) k/mm3 MPV 9.1 (7.4-10.4) fl Immature Gran % (Auto) 0.5 (0-0.5) % Neut % (Auto) 89.7 H (45.5-73.1) % Lymph % (Auto) 7.6 L (18.3-44.2) % [place] % (Auto) 1.1 L (2.6-8.5) % Eos % (Auto) 0.6 (0-4.4) % Baso % (Auto) 0.5 (0.2-1.2) % Lymph # (Auto) 0.47 L (0.9-3.2) K/mm3 [place] # (Auto) 0.1 (0.1-0.6) K/mm3 Eos # (Auto) 0.0 (0-0.3) K/mm3 Baso # (Auto) 0.0 (0.0-0.1) K/mm3 Abs Immat Gran (auto) 0.03 (0.00-0.031) K/mm3 Absolute Neuts (auto) 5.6 (1.3-6.7) K/mm3 Absolute Nucleated RBC 0.000 (0.0-0.012) K/mm3 Nucleated RBC % 0.0 (0.0-0.2) % Sodium 138 (137-145) mmol/L Potassium 4.1 (3.4-5.0) mmol/L Chloride 101 (98-107) mmol/L Carbon Dioxide 24 (22-30) mmol/L Anion Gap 13 H (4-12) mmol/L BUN 23 H (9-20) mg/dL Creatinine 0.90 (0.7-1.3) mg/dL Estim Creat Clear Calc 69 ml/min Estimated GFR > 60 (59 - ) Glucose 154 H (65-110) mg/dL Lactic Acid 2.8 H (0.7-2.0) mmol/L Calcium 9.3 (8.4-10.2) mg/dL Total Bilirubin 1.3 (0.2-1.3) mg/dL AST 23 (17-59) U/L ALT 22 (6-50) U/L Alkaline Phosphatase 80 (38-126) U/L Troponin I < 0.012 (0.000-0.034) ng/mL Total Protein 8.0 (6.3-8.2) g/dL Albumin 4.5 (3.5-5.1) g/dL Lipase 142 (23-300) U/L Urine Color Yellow (Yellow) Urine Appearance Clear (Clear) Urine pH 6.5 (5.0-9.0) Ur Specific [place] 1.018 (1.001-1.035) Urine Protein Trace (Negative) mg/dL Urine Glucose (UA) 3+ H (Negative) mg/dL Urine Ketones Negative (Negative) mg/dL Ur Blood (Man) 3+ H (Negative) Urine Nitrate Positive H (Negative) Urine Bilirubin Negative (Negative) Urine Urobilinogen 0.2 (<2.0) mg/dL Leukocyte Esterase Rfl 1+ H (Negative) LEYLA/UL Urine RBC 51-100 H (0-2) /hpf Urine WBC 51-100 H (0-3) /hpf Ur Squamous Epith Cells Occasional (Few) /hpf Urine Bacteria 4+ H /hpf Urine Casts 0-2 //24 Range/Units 23:54 WBC (4.5-10.0) K/mm3 RBC (4.6-6.20) M/mm3 Hgb (14.0-18.0) g/dL Hct (42.0-52.0) % MCV (80-100) fl MCH (26-34) pg MCHC (32-36) g/dl RDW (11.5-14.5) % Plt Count (150-375) k/mm3 MPV (7.4-10.4) fl Immature Gran % (Auto) (0-0.5) % Neut % (Auto) (45.5-73.1) % Lymph % (Auto) (18.3-44.2) % [place] % (Auto) (2.6-8.5) % Eos % (Auto) (0-4.4) % Baso % (Auto) (0.2-1.2) % Lymph # (Auto) (0.9-3.2) K/mm3 [place] # (Auto) (0.1-0.6) K/mm3 Eos # (Auto) (0-0.3) K/mm3 Baso # (Auto) (0.0-0.1) K/mm3 Abs Immat Gran (auto) (0.00-0.031) K/mm3 Absolute Neuts (auto) (1.3-6.7) K/mm3 Absolute Nucleated RBC (0.0-0.012) K/mm3 Nucleated RBC % (0.0-0.2) % Sodium (137-145) mmol/L Potassium (3.4-5.0) mmol/L Chloride (98-107) mmol/L Carbon Dioxide (22-30) mmol/L Anion Gap (4-12) mmol/L BUN (9-20) mg/dL Creatinine (0.7-1.3) mg/dL Estim Creat Clear Calc ml/min Estimated GFR (59 - ) Glucose (65-110) mg/dL Lactic Acid 1.2 (0.7-2.0) mmol/L Calcium (8.4-10.2) mg/dL Total Bilirubin (0.2-1.3) mg/dL AST (17-59) U/L ALT (6-50) U/L Alkaline Phosphatase (38-126) U/L Troponin I (0.000-0.034) ng/mL Total Protein (6.3-8.2) g/dL Albumin (3.5-5.1) g/dL Lipase (23-300) U/L Urine Color (Yellow) Urine Appearance (Clear) Urine pH (5.0-9.0) Ur Specific [place] (1.001-1.035) Urine Protein (Negative) mg/dL Urine Glucose (UA) (Negative) mg/dL Urine Ketones (Negative) mg/dL Ur Blood (Man) (Negative) Urine Nitrate (Negative) Urine Bilirubin (Negative) Urine Urobilinogen (<2.0) mg/dL Leukocyte Esterase Rfl (Negative) LEYLA/UL Urine RBC (0-2) /hpf Urine WBC (0-3) /hpf Ur Squamous Epith Cells (Few) /hpf Urine Bacteria /hpf Urine Casts Critical Care Time Critical Care Time Critical Care Time: Yes Total Critical Care Time: 35 Discharge Plan Discharge Clinical Impression: Acute UTI, Sepsis, Hypoxia Patient Disposition: Still a Patient Condition: Stable Time of Disposition: 01:00
[2024-01-28] MEDS: HYDROmorphone HCL INJ (*CRX) 1 MG/ML SYR IV PUSH (20:10)
[2024-01-28] MEDS: LACTATED RINGERS 1,000 ML 999 ML IV CONT ×2 (20:18)
--- NOTE | 2024-01-28 20:30 | PC.NURSE ---
Pt 87% on RA. Placed on 4L O2. 91% at this time.
[2024-01-28 20:34] VITALS: BP 152/78; PULSE 133; RESP 22; O2SAT 91
[2024-01-28 20:43] LABS: Basophils Percent Auto 0.5 % (0.2-1.2); Eosinophils Percent Auto 0.6 % (0-4.4); Hematocrit 53.9 % (42.0-52.0); Hemoglobin 18.6 g/dL (14.0-18.0); Immature Granulocyte Absolute 0.03 K/mm3 (0.00-0.031); Immature Granulocyte Percent A 0.5 % (0-0.5); Lymphocytes Absolute Auto 0.47 K/mm3 (0.9-3.2); Lymphocytes Percent Auto 7.6 % (18.3-44.2); Mean Corpuscular HGB Conc 34.5 g/dl (32-36); Mean Corpuscular Volume 92.6 fl (80-100); Mean Platelet Volume 9.1 fl (7.4-10.4); Monocytes Absolute Auto 0.1 K/mm3 (0.1-0.6); Monocytes Percent Auto 1.1 % (2.6-8.5); Neutrophils Absolute Auto 5.6 K/mm3 (1.3-6.7); Neutrophils Percent Auto 89.7 % (45.5-73.1); Platelet Count Result 156 k/mm3 (150-375); Red Blood Count 5.82 M/mm3 (4.6-6.20); Red Cell Distribution Width 13.7 % (11.5-14.5); White Blood Count 6.2 K/mm3 (4.5-10.0)
[2024-01-28 20:52] LABS: Alanine Aminotransferase 22 U/L (6-50); Albumin Level 4.5 g/dL (3.5-5.1); Alkaline Phosphatase 80 U/L (38-126); Anion Gap 13 mmol/L (4-12); Aspartate Amino Transferase 23 U/L (17-59); Bilirubin,Total 1.3 mg/dL (0.2-1.3); Blood Urea Nitrogen 23 mg/dL (9-20); Calcium 9.3 mg/dL (8.4-10.2); Carbon Dioxide 24 mmol/L (22-30); Chloride 101 mmol/L (98-107); Estimated CRCL calculation 69 ml/min; Estimated Glomerular Filt Rate > 60; Glucose 154 mg/dL (65-110); Lipase 142 U/L (23-300); Potassium 4.1 mmol/L (3.4-5.0); Sodium 138 mmol/L (137-145)
[2024-01-28 20:53] LABS: Lactic Acid Reflex 2.8 mmol/L (0.7-2.0)
[2024-01-28 21:04] LABS: Add Urine Microscopic? YES; Appearance Urine Clear (Clear); Bacteria Urine 4+ /hpf; Bilirubin Urine Negative (Negative); Blood Urine 3+ (Negative); Color Urine Yellow (Yellow); Glucose Urine UA 3+ mg/dL (Negative); Ketones Urine Negative (Negative); Leukocyte Esterase Ur 1+ LEU/UL (Negative); Nitrate Urine Positive (Negative); Non Pathogenic Casts 0-2; Protein Urine Trace mg/dL (Negative); RBC Urine 51-100 /hpf (0-2); Specific Grav Ur 1.018 (1.001-1.035); Squamous Epithelial Cell Urine Occasional /hpf (Few); Urobilinogen Urine 0.2 mg/dL (<2.0); WBC Urine 51-100 /hpf (0-3); pH Urine 6.5 (5.0-9.0)
[2024-01-28 21:29] LABS: Troponin I < 0.012 ng/mL (0.000-0.034)
[2024-01-28 21:49] VITALS: BP 140/77; PULSE 125; RESP 30; O2SAT 94
[2024-01-28] MEDS: cefTRIAXone 2 GM/NS 100 ML 2 GM/100 ML BAG IVPB (21:49)
[2024-01-28 21:50] VITALS: O2SAT 94
[2024-01-28 23:40] LABS: Reflex Lactic Acid Yes or No Add Lactic
[2024-01-29] VITALS (20 sets, daily range): BP systolic 97–130; BP diastolic 56–80; PULSE 52–118; RESP 16–20; TEMP 36.3–37.7; O2SAT 91–97; BMI 24.0
[2024-01-29 00:09] LABS: Lactic Acid 1.2 mmol/L (0.7-2.0)
[2024-01-29] MEDS: LACTATED RINGERS 1,000 ML 999 ML IV CONT (00:45)
--- NOTE | 2024-01-29 00:50 | PC.NURSE ---
Pt to receive 4mg IV morphine per CHIKA Sam
[2024-01-29] MEDS: ACETAMINOPHEN 500 MG TABLET 1000 MG PO (01:00)
[2024-01-29] MEDS: MORPHINE SULFATE (*CRX) 4 MG/ML INJ IV PUSH (01:00)
[2024-01-29] MEDS: HYDROmorphone HCL INJ (*CRX) 1 MG/ML SYR 0.5 MG IV PUSH (01:55)
--- NOTE | 2024-01-29 02:11 | ADMGEN ---
This patient, Mark Barnard, was admitted to IMU Room 207-01 at 0210. Patient/family oriented to hospital policies and general routines including ID bracelet, bed and alarms, visiting hours, pain management, procedures, bathroom and other care routines, personal items, smoking policy, room service/diet, and visiting hours. Information on how to activate the Rapid Response Team has been discussed. Patient/Family are encouraged to report perceived risks to care and to ask questions if they do not understand what they are told or what they should do.
[2024-01-29 02:32] LABS: Glucose Point of Care 166 mg/dl (65-105)
[2024-01-29] MEDS: PIPERACILLIN/TAZ 4.5G/NS 100ML 4.5 GM/100 ML BAG IVPB ×4 (03:09→21:04)
[2024-01-29] MEDS: ONDANSETRON INJ 4 MG/2 ML VIAL IV PUSH (03:10)
--- NOTE | 2024-01-29 03:48 | PM.IMHP ---
H&P: HPI History of Present Illness Date/Time: 01/29/24 03:48 Chief Complaint: Low abdominal pain and back pain, chills Narrative: 63-year-old male with past medical history of coronary artery disease,essential hypertension, chronic back pain, diabetes, BPH, kidney stones and prior cholecystectomy who presented to the ER with lower abdominal pain, back pain and severe chills. Patient reports that for the last 5-6 days he has been having dysuria with occasional small passage of clots. He was associated with some suprapubic tenderness and low back pain. He reports he has chronic low back pain and was unsure if the back pain was due to an exacerbation of his chronic pain or feet could have been a kidney stone. He reports that his last episode with kidney stones in UTI was approximately 15 or more years ago. But he does have a history of multiple kidney stones and has had to have lithotripsy and prior stents multiple times. He became more concerned on the when he developed fever up to 101. He had been having some nausea but no true vomiting until after he had already been admitted the hospital. He did have 1 episode of vomiting. He reported that just before coming the hospital he developed severe rigors. He could not stop shaking despite taking Tylenol. His temperature was around 101. He became so concerned that he came to the hospital. He does have CVA tenderness on exam right greater than left. Initially in ER he is tachycardic with heart rates in the 130s. He received 30 mL/kilos fluid bolus and initially antibiotic therapy with Rocephin. His antibiotic coverage was broadened to Zosyn given severity of illness. He was continued on maintenance IV fluids and admitted to the hospital. His imaging did demonstrate bilateral UPJ obstruction right greater than left with associated hydronephrosis but no obvious stones. Radiology felt imaging findings are most likely chronic. Patient denies known history of chronic obstruction. Patient was noted to be hypoxic in the ER. However by the time patient arrived to the IMU his hypoxia had resolved and he was weaned off of oxygen. He denies any chest pain or shortness of breath. He initially did have tachypnea with a respiratory rate up to 30 but this has since resolved with treatment of sepsis. Review of Systems Review of Systems: 12 systems were reviewed with pertinent positives and negatives per HPI. Except as documented in the HPI, all other systems were reviewed and are negative. PMFSH Past Medical History Medical History Actinic keratosis of forehead Atherosclerotic heart disease of [place] coronary artery with other forms of angina pectoris BPH (benign prostatic hyperplasia) Bradycardia, drug induced Calculus of kidney Cardiomyopathy ef 55% Dyskinesia of esophagus Essential (primary) hypertension Fatty (change of) liver, not elsewhere classified History of heart attack Hypogonadism in male Inguinal hernia (~10/2017) Insomnia Obesity (BMI 30.0-34.9) Obstructive sleep apnea (adult) (pediatric) Other lower urinary tract calculus Overweight (BMI 25.0-29.9) Prediabetes Pure hyperglyceridemia Sacroiliac joint dysfunction of left side Spondylosis without myelopathy or radiculopathy, lumbar region Tenosynovitis of left shoulder Thoracic aortic aneurysm without rupture Tinnitus Umbilical hernia (~01/2014) Unspecified sleep apnea Surgical History Surgical History History of arthroscopy of right shoulder (~05/30/21) right RCR, SAD, biceps tenodesis, labral JAYLON History of coronary artery stent placement (~10/2009) History of shoulder replacement History of tonsillectomy Hx of cholecystectomy (~08/2004) Status post laser lithotripsy of ureteral calculus Status post reverse total shoulder replacement Family History Family History Mother Family history of cardiovascular disease Family history of coronary artery disease Family history of malignant neoplasm of breast in first degree relative Father Acute myocardial infarction, Onset Age: 40 Family history of heart disease in male family member before age 55 Other Family history of malignant neoplasm of breast Hypertension Social History Social History (Updated 01/30/24 @ 09:04 by Thao Peraza DO) Social History: Patient that he reports that he has been to his for over 40 years. 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 Part of the process of getting the shoulder surgeries recur his job required him to apply for disability. Turns out the patient has now qualified for disability and will not be returning to work. He is a former smoker smoked 1 pack per day for 20 years. He drinks 1 beer 2 or 3 times a week. He denies illicit substance use. He and his raised 2 daughters. Code status: Full code Surrogate decision maker: Diya (spouse) Smoking packs per day: 1 Smoking cigarettes per day: 20.0 Years smoked: 20 Smoking pack-years: 20.00 Smoking status: Former smoker Second hand tobacco smoke exposure: No Additional smoking assessment comments: 1ppd x20 year smoker Alcohol intake: current Drinks per week: 3 Substance use: never Substance use type: does not use Do You Feel Safe in your Home?: Yes Lack of Transportation: No Lack of Food: Never True Current Housing: I Have Housing Concerned About Future Housing: No Difficulty Paying Gas/Electric Bills: No Difficulty Paying for Meds: No Currently Unemployed: No Education: Decline to Answer Difficulty w/ Childcare or Family Care: No Living arrangements: with family Additional living arrangements comments: Spiritual care concerns: No Meds Home Medications and Allergies Home Medications Medication Instructions Recorded Confirmed Type aspirin 81 mg tablet,delayed 81 mg PO DAILY 10/30/20 01/29/24 History release alprazolam 0.25 mg tablet (Xanax) 0.25 mg PO TID PRN Anxiety 01/09/21 01/29/24 History lidocaine 5 % topical patch See Rx Instructions .Route 01/09/21 01/29/24 History .COMPLEX PRN Pain zolpidem 5 mg tablet 5 mg PO QHS PRN Insomnia #30 tabs 04/29/23 01/29/24 Rx fluoxetine 20 mg capsule (Prozac) 20 mg PO QPM 06/18/23 01/29/24 History lisinopril 20 mg tablet 20 mg PO QPM 06/18/23 01/29/24 History metoprolol succinate 50 mg 50 mg PO QAM 06/18/23 01/29/24 History tablet,extended release 24 hr metaxalone 800 mg tablet 800 mg PO TID PRN muscle pain #30 09/21/23 01/29/24 Rx tabs testosterone (AndroGel) 4 pump topical DAILY 90 days #300 09/21/23 01/29/24 Rx grams hydrocodone 5 mg-acetaminophen 325 1 tablet PO Q6H PRN pain #30 tabs 09/22/23 01/29/24 Rx mg tablet semaglutide 1 mg/dose (4 mg/3 mL) See Rx Instructions .Route 09/22/23 01/29/24 Rx subcutaneous pen injector (Ozempic) .COMPLEX #9 mL ezetimibe 10 mg tablet (Zetia) 10 mg PO DAILY #90 tabs 12/08/23 01/29/24 Rx diazepam 5 mg tablet (Valium) 5 mg PO BID PRN muscle spasm #20 01/05/24 01/29/24 Rx tabs tamsulosin 0.4 mg capsule (Flomax) 0.4 mg PO DAILY #30 caps 01/26/24 01/29/24 Rx Allergies Allergy/AdvReac Type Severity Reaction Status Date / Time metformin AdvReac Severe diarrhea Verified 01/26/24 08:35 rosuvastatin AdvReac Intermediate myalgia Uncoded 01/05/24 13:25 Vital Signs Vital Signs - 24 hr 01/28/24 18:59 01/28/24 20:34 01/28/24 20:34 Temperature 98.5 F Pulse Rate 116 H 133 H Respiratory Rate 20 22 H Blood Pressure 132/83 152/78 H Pulse Oximetry 99 91 91 Oxygen Delivery Room Air Nasal Cannula Oxygen Flow Rate 4 01/28/24 21:49 01/28/24 21:50 01/29/24 00:05 Temperature 99.9 F H Pulse Rate 125 H 118 H Respiratory Rate 30 H 19 Blood Pressure 140/77 107/80 Pulse Oximetry 94 94 94 Oxygen Delivery Nasal Cannula Oxygen Flow Rate 3 01/29/24 01:24 01/29/24 02:10 Temperature 97.6 F Pulse Rate 114 H 102 H Respiratory Rate 19 16 Blood Pressure 113/76 97/62 L Pulse Oximetry 95 91 Oxygen Delivery Oxygen Flow Rate Exam Narrative: weight 71.8 kg BMI 24.1 Const: Other: Well-developed, well-nourished, appears stated age, no acute distress HENMT: Other: Mucous membranes are tacky, no oral pharyngeal erythema, head is normocephalic atraumatic Eyes: Other: Pupils are equal and reactive, no scleral icterus, no conjunctival pallor Neck: Other: No JVD, no lymphadenopathy, normal neck circumference Resp: Other: Clear to auscultation bilaterally, no increased work of breathing Cardio: Other: Regular rate, regular rhythm, 2+ bilateral radial pedal pulses GI: Other: Soft, nontender, nondistended, positive bowel sounds Back/Spine/Pelvis: Other: Bilateral CVA tenderness right greater than left Skin: Other: Tanned, non jaundice Neuro: Other: Patient is alert orient x4, speech is clear, no facial asymmetry, moves all extremities equally, no localizing neurologic deficits noted during the course of conversation Extrem: Other: No clubbing, cyanosis or edema, good muscle tone and strength in all extremities Psych: Other: Appropriate mood and affect, pleasant and cooperative, appropriate judgment and insight H&P: Results Labs Labs: Laboratory Tests 01/28/24 20:31 01/28/24 20:31 01/28/24 01/28/24 01/28/24 20:30 20:31 20:32 WBC 6.2 RBC 5.82 Hgb 18.6 H Hct 53.9 H MCV 92.6 MCH 32.0 MCHC 34.5 RDW 13.7 Plt Count 156 MPV 9.1 Immature Gran % (Auto) 0.5 Neut % (Auto) 89.7 H Lymph % (Auto) 7.6 L [place] % (Auto) 1.1 L Eos % (Auto) 0.6 Baso % (Auto) 0.5 Lymph # (Auto) 0.47 L [place] # (Auto) 0.1 Eos # (Auto) 0.0 Baso # (Auto) 0.0 Abs Immat Gran (auto) 0.03 Absolute Neuts (auto) 5.6 Absolute Nucleated RBC 0.000 Nucleated RBC % 0.0 Sodium 138 Potassium 4.1 Chloride 101 Carbon Dioxide 24 Anion Gap 13 H BUN 23 H Creatinine 0.90 Estim Creat Clear Calc 69 Estimated GFR > 60 Glucose 154 H POC Capillary Glucose Lactic Acid 2.8 H Calcium 9.3 Total Bilirubin 1.3 AST 23 ALT 22 Alkaline Phosphatase 80 Troponin I < 0.012 Total Protein 8.0 Albumin 4.5 Lipase 142 Urine Color Yellow Urine Appearance Clear Urine pH 6.5 Ur Specific [place] 1.018 Urine Protein Trace Urine Glucose (UA) 3+ H Urine Ketones Negative Ur Blood (Man) 3+ H Urine Nitrate Positive H Urine Bilirubin Negative Urine Urobilinogen 0.2 Leukocyte Esterase Rfl 1+ H Urine RBC 51-100 H Urine WBC 51-100 H Ur Squamous Epith Cells Occasional Urine Bacteria 4+ H Urine Casts 0-2 01/28/24 01/29/24 23:54 02:28 WBC RBC Hgb Hct MCV MCH MCHC RDW Plt Count MPV Immature Gran % (Auto) Neut % (Auto) Lymph % (Auto) [place] % (Auto) Eos % (Auto) Baso % (Auto) Lymph # (Auto) [place] # (Auto) Eos # (Auto) Baso # (Auto) Abs Immat Gran (auto) Absolute Neuts (auto) Absolute Nucleated RBC Nucleated RBC % Sodium Potassium Chloride Carbon Dioxide Anion Gap BUN Creatinine Estim Creat Clear Calc Estimated GFR Glucose POC Capillary Glucose 166 H Lactic Acid 1.2 Calcium Total Bilirubin AST ALT Alkaline Phosphatase Troponin I Total Protein Albumin Lipase Urine Color Urine Appearance Urine pH Ur Specific [place] Urine Protein Urine Glucose (UA) Urine Ketones Ur Blood (Man) Urine Nitrate Urine Bilirubin Urine Urobilinogen Leukocyte Esterase Rfl Urine RBC Urine WBC Ur Squamous Epith Cells Urine Bacteria Urine Casts Impressions Abdomen/Pelvis CT 01/28/24 20:07 IMPRESSION: Mild left and moderate right UPJ obstruction, likely chronic. No obstructing stone or mass detected. Mildly dilated small bowel loop in the mid abdomen, no transition point or obstructing mass. This may represent localized ileus. Early obstruction is not excluded. Chest CTA 01/28/24 21:34 IMPRESSION: Examination limited by motion artifact. Segmental and subsegmental pulmonary arteries not well evaluated. No central embolus detected. No acute process detected in the chest. EKG: Personally reviewed and interpreted cardiology interpretation pending. Sinus tachycardia rate 129 LVH, inferior CO of indeterminate age Assessment and Plan Assessment and plan (1) Sepsis: Qualifiers: Acute respiratory failure type: with hypoxia Sepsis acute organ dysfunction status: with acute organ dysfunction Sepsis type: sepsis due to unspecified organism Severe sepsis acute organ dysfunction type: acute respiratory failure Severe sepsis shock status: without septic shock Qualified Code(s): A41.9 - Sepsis, unspecified organism; R65.20 - Severe sepsis without septic shock; J96.01 - Acute respiratory failure with hypoxia Code(s): A41.9 - Sepsis, unspecified organism Status: Acute (2) Pyelonephritis: Code(s): N12 - Tubulo-interstitial nephritis, not specified as acute or chronic Status: Acute (3) UPJ (ureteropelvic junction) obstruction: Code(s): N13.5 - Crossing vessel and stricture of ureter without hydronephrosis Status: Acute (4) Polycythemia due to fall in plasma volume: Code(s): D75.1 - Secondary polycythemia Status: Acute (5) Diabetes mellitus, type 2: Qualifiers: Diabetes mellitus complication status: without complication Diabetes mellitus correction insulin use: without terminal operations manager use Qualified Code(s): E11.9 - Type 2 diabetes mellitus without complications Code(s): E11.9 - Type 2 diabetes mellitus without complications Status: Acute (6) Chronic lower back pain: Qualifiers: Back pain laterality: unspecified Sciatica presence: unspecified whether sciatica present Qualified Code(s): M54.50 - Low back pain, unspecified; G89.29 - Other chronic pain Code(s): M54.50 - Low back pain, unspecified; G89.29 - Other chronic pain Status: Acute (7) BPH (benign prostatic hyperplasia): Qualifiers: Lower urinary tract symptom detail: urinary frequency Lower urinary tract symptom presence: symptoms present Qualified Code(s): N40.1 - Benign prostatic hyperplasia with lower urinary tract symptoms; R35.0 - Frequency of micturition Code(s): N40.0 - Benign prostatic hyperplasia without lower urinary tract symptoms Status: Acute (8) Hypoxia: Code(s): R09.02 - Hypoxemia Status: Acute Plan Patient presented with sepsis due to pyelonephritis and associated with UPJ obstruction. Patient received 30 mL/kilos fluid bolus. Blood cultures and urine cultures are pending. Patient's symptoms improved significantly after receiving empiric antibiotic therapy initially with Rocephin and then switched to Zosyn. His tachycardia has resolved as well as his hypoxia. His nausea has also resolved. Will continue antibiotic therapy and IV fluid hydration. Will await culture results. Will consult Urology to see if patient may benefit from stent placement given the possible associated ascending urinary tract infection with increased pain on the right side CVA tenderness. Imaging does not show obvious obstructing stone but is unclear if this may be acute or chronic obstruction. Would appreciate urology recommendations. Will monitor strict I&O's. Will repeat CBC and electrolyte panel this a.m.. Will continue home Flomax. Patient reports he was started on Flomax last week due to urinary frequency symptoms. Bladder scan at bedside demonstrated less than 200 mL of retained urine. Patient has significant dehydration with associated polycythemia. In will continue IV fluid hydration and repeat CBC. The patient has history of prediabetes last A1c was 6.3%. Will hold the patient's home Ozempic. Will monitor glucoses and placed on consistent carbohydrate diet. Given the improvement in patient's condition patient could be transferred to medical floor today. Otherwise will review and resume patient's home medications as clinically appropriate. Quality VTE Prophylaxis VTE prophylaxis: pharmacologic ordered (Lovenox 40 mg subQ daily) Hospitalist [facility] Advance Care Plan I have confirmed that the patient's Advanced Care Plan is present, code status is documented, or surrogate decision maker is listed in patient medical record.: Yes Medication Reconciliation I have utilized all available resources to obtain, update and review the patients current medications (includes all prescriptions, OTC, herbals, cannabis, and nutritional supplements).: Yes
[2024-01-29] MEDS: LACTATED RINGERS 1,000 ML 125 ML IV CONT ×2 (04:02→13:36)
--- NOTE | 2024-01-29 08:26 | WPDURCON ---
Assessment and Plan Assessment and plan (1) Acute UTI: Code(s): N39.0 - Urinary tract infection, site not specified Status: Acute Assessment and Plan: Doing better at the present time. Awaiting urine culture. His lactic acid was elevated on admission but is normal at this time. I am not quite certain would classify him as sepsis at this point time. He is has normal white count afebrile normal renal function. He will require an outpatient cystoscopy at some point time an a formal CT urogram given the hematuria (2) UPJ (ureteropelvic junction) obstruction: Code(s): N13.5 - Crossing vessel and stricture of ureter without hydronephrosis Status: Acute Assessment and Plan: This appears more chronic in nature. Calices did not appear overly hydronephrotic but possibly more min patulous extrarenal pelvis. Will obtain CT urogram and will likely need a renal scan with Lasix washout at some point time. Will hold off on stent placement at this time. If he develops increasing pain, fever, rising white count then may require a stent. Urology Consult Note HPI Date Seen: 01/29/24 Time Seen: 08:26 Requesting Physician: Thao Peraza DO Primary Care Provider: Farhad Peters MD Consult Narrative Reason for consult: UTI with hydro Narrative: Mark Barnard is a 63 year old male who has a history of kidney stones. This patient has chronic back pain but but then developed some right lower cautery and discomfort along with some dysuria frequency or urgency and slight hematuria. He presented to the emergency room where a CT scan reveals some hydronephrosis on the right and then mild on the left. No stones noted. There was a question of a right UPJ. When I reviewed the CT scan things appeared to be more of a dilated renal pelvis patulous in nature as opposed to true hydronephrosis. Patient's white count was normal at 6, creatinine normal, and afebrile. His urinalysis did have bacteria present cultures pending. Patient is feeling much better this morning. Denies any pain or discomfort. Review of Systems Review of Systems: All systems reviewed & are unremarkable except as noted in HPI and below PMFSH Past Medical History Medical History Actinic keratosis of forehead Atherosclerotic heart disease of [place] coronary artery with other forms of angina pectoris BPH (benign prostatic hyperplasia) Bradycardia, drug induced Calculus of kidney Cardiomyopathy ef 55% Dyskinesia of esophagus Essential (primary) hypertension Fatty (change of) liver, not elsewhere classified History of heart attack Hypogonadism in male Inguinal hernia (~10/2017) Insomnia Obesity (BMI 30.0-34.9) Obstructive sleep apnea (adult) (pediatric) Other lower urinary tract calculus Overweight (BMI 25.0-29.9) Prediabetes Pure hyperglyceridemia Sacroiliac joint dysfunction of left side Spondylosis without myelopathy or radiculopathy, lumbar region Tenosynovitis of left shoulder Thoracic aortic aneurysm without rupture Tinnitus Umbilical hernia (~01/2014) Unspecified sleep apnea Surgical History Surgical History History of arthroscopy of right shoulder (~05/30/21) right RCR, SAD, biceps tenodesis, labral JAYLON History of coronary artery stent placement (~10/2009) History of shoulder replacement History of tonsillectomy Hx of cholecystectomy (~08/2004) Status post laser lithotripsy of ureteral calculus Status post reverse total shoulder replacement Family History Family History Mother Family history of cardiovascular disease Family history of coronary artery disease Family history of malignant neoplasm of breast in first degree relative Father Acute myocardial infarction, Onset Age: 40 Family history of heart disease in male family member before age 55 Other Family history of malignant neoplasm of breast Hypertension Social History Social History Social History: Code status: Surrogate decision maker: Diya (spouse) Smoking packs per day: 1 Smoking cigarettes per day: 20.0 Years smoked: 20 Smoking pack-years: 20.00 Smoking status: Former smoker Second hand tobacco smoke exposure: No Additional smoking assessment comments: 1ppd x20 year smoker Alcohol intake: current Drinks per week: 3 Substance use: never Substance use type: does not use Do You Feel Safe in your Home?: Yes Lack of Transportation: No Lack of Food: Never True Current Housing: I Have Housing Concerned About Future Housing: No Difficulty Paying Gas/Electric Bills: No Difficulty Paying for Meds: No Currently Unemployed: No Education: Decline to Answer Difficulty w/ Childcare or Family Care: No Living arrangements: with family Additional living arrangements comments: Spiritual care concerns: No Meds Home Medications and Allergies Home Medications Medication Instructions Recorded Confirmed Type aspirin 81 mg tablet,delayed 81 mg PO DAILY 10/30/20 01/29/24 History release alprazolam 0.25 mg tablet (Xanax) 0.25 mg PO TID PRN Anxiety 01/09/21 01/29/24 History lidocaine 5 % topical patch See Rx Instructions .Route 01/09/21 01/29/24 History .COMPLEX PRN Pain zolpidem 5 mg tablet 5 mg PO QHS PRN Insomnia #30 tabs 04/29/23 01/29/24 Rx fluoxetine 20 mg capsule (Prozac) 20 mg PO QPM 06/18/23 01/29/24 History lisinopril 20 mg tablet 20 mg PO QPM 06/18/23 01/29/24 History metoprolol succinate 50 mg 50 mg PO QAM 06/18/23 01/29/24 History tablet,extended release 24 hr metaxalone 800 mg tablet 800 mg PO TID PRN muscle pain #30 09/21/23 01/29/24 Rx tabs testosterone (AndroGel) 4 pump topical DAILY 90 days #300 09/21/23 01/29/24 Rx grams hydrocodone 5 mg-acetaminophen 325 1 tablet PO Q6H PRN pain #30 tabs 09/22/23 01/29/24 Rx mg tablet semaglutide 1 mg/dose (4 mg/3 mL) See Rx Instructions .Route 09/22/23 01/29/24 Rx subcutaneous pen injector (Ozempic) .COMPLEX #9 mL ezetimibe 10 mg tablet (Zetia) 10 mg PO DAILY #90 tabs 12/08/23 01/29/24 Rx diazepam 5 mg tablet (Valium) 5 mg PO BID PRN muscle spasm #20 01/05/24 01/29/24 Rx tabs tamsulosin 0.4 mg capsule (Flomax) 0.4 mg PO DAILY #30 caps 01/26/24 01/29/24 Rx Allergies Allergy/AdvReac Type Severity Reaction Status Date / Time metformin AdvReac Severe diarrhea Verified 01/26/24 08:35 rosuvastatin AdvReac Intermediate myalgia Uncoded 01/05/24 13:25 Vital Signs Vital Signs - 24 hr 01/28/24 18:59 01/28/24 20:34 01/28/24 20:34 Temperature 36.9 C Pulse Rate 116 H 133 H Respiratory Rate 20 22 H Blood Pressure 132/83 152/78 H Pulse Oximetry 99 91 91 Oxygen Delivery Room Air Nasal Cannula Oxygen Flow Rate 4 01/28/24 21:49 01/28/24 21:50 01/29/24 00:05 Temperature 37.7 C H Pulse Rate 125 H 118 H Respiratory Rate 30 H 19 Blood Pressure 140/77 107/80 Pulse Oximetry 94 94 94 Oxygen Delivery Nasal Cannula Oxygen Flow Rate 3 01/29/24 01:24 01/29/24 02:10 01/29/24 04:00 Temperature 36.4 C Pulse Rate 114 H 102 H 82 Respiratory Rate 19 16 Blood Pressure 113/76 97/62 L Pulse Oximetry 95 91 Oxygen Delivery Oxygen Flow Rate 01/29/24 02:15 01/29/24 06:00 01/29/24 05:25 Temperature 36.5 C Pulse Rate 80 79 81 Respiratory Rate 16 Blood Pressure 97/56 L Pulse Oximetry 93 Oxygen Delivery Oxygen Flow Rate 01/29/24 07:29 01/29/24 08:15 Temperature 36.3 C L Pulse Rate 74 Respiratory Rate 16 Blood Pressure 103/58 L Pulse Oximetry 93 94 Oxygen Delivery Room Air Oxygen Flow Rate Exam Const: General: cooperative, healthy appearing, comfortable and no acute distress Resp: Effort & Inspection: normal respiratory effort Cardio: Rate: regular rate GI: GI Palp: Yes Soft to palpation Results Labs 01/28/24 20:31 01/28/24 20:31 Labs: Short CBC 01/28/24 Range/Units 20:31 WBC 6.2 (4.5-10.0) K/mm3 Hgb 18.6 H (14.0-18.0) g/dL Hct 53.9 H (42.0-52.0) % Plt Count 156 (150-375) k/mm3 [facility] 01/28/24 20:31 Sodium 138 Potassium 4.1 Chloride 101 Carbon Dioxide 24 BUN 23 H Creatinine 0.90 Glucose 154 H Calcium 9.3 Cardiac Enzymes 01/28/24 Range/Units 20:30 Troponin I < 0.012 (0.000-0.034) ng/mL Liver Function 01/28/24 Range/Units 20:31 Total Bilirubin 1.3 (0.2-1.3) mg/dL AST 23 (17-59) U/L ALT 22 (6-50) U/L Alkaline Phosphatase 80 (38-126) U/L Albumin 4.5 (3.5-5.1) g/dL Urine 01/28/24 Range/Units 20:32 Urine Color Yellow (Yellow) Urine Appearance Clear (Clear) Urine pH 6.5 (5.0-9.0) Ur Specific [place] 1.018 (1.001-1.035) Urine Protein Trace (Negative) mg/dL Urine Glucose (UA) 3+ H (Negative) mg/dL
[2024-01-29] MEDS: EZETIMIBE 10 MG TABLET PO (08:28)
[2024-01-29] MEDS: ASPIRIN 81 MG ENTERIC TABLET PO (08:28)
[2024-01-29] MEDS: TAMSULOSIN HCL 0.4 MG CAPSULE PO (08:28)
[2024-01-29 09:17] LABS: Anion Gap 8 mmol/L (4-12); Blood Urea Nitrogen 22 mg/dL (9-20); Calcium 8.9 mg/dL (8.4-10.2); Carbon Dioxide 28 mmol/L (22-30); Chloride 101 mmol/L (98-107); Estimated CRCL calculation 69 ml/min; Estimated Glomerular Filt Rate > 60; Glucose 139 mg/dL (65-110); Potassium 4.2 mmol/L (3.4-5.0); Sodium 137 mmol/L (137-145)
[2024-01-29 09:31] LABS: Basophils Percent Auto 0.2 % (0.2-1.2); Eosinophils Percent Auto 0.1 % (0-4.4); Hematocrit 50.4 % (42.0-52.0); Immature Granulocyte Absolute 0.16 K/mm3 (0.00-0.031); Immature Granulocyte Percent A 0.9 % (0-0.5); Lymphocytes Absolute Auto 0.94 K/mm3 (0.9-3.2); Lymphocytes Percent Auto 5.2 % (18.3-44.2); Mean Corpuscular HGB Conc 33.7 g/dl (32-36); Mean Corpuscular Hemoglobin 31.9 pg (26-34); Mean Corpuscular Volume 94.6 fl (80-100); Mean Platelet Volume 9.2 fl (7.4-10.4); Monocytes Absolute Auto 1.7 K/mm3 (0.1-0.6); Monocytes Percent Auto 9.4 % (2.6-8.5); Neutrophils Absolute Auto 15.3 K/mm3 (1.3-6.7); Neutrophils Percent Auto 84.2 % (45.5-73.1); Platelet Count Result 165 k/mm3 (150-375); Red Blood Count 5.33 M/mm3 (4.6-6.20); White Blood Count 18.2 K/mm3 (4.5-10.0)
[2024-01-29] MEDS: ENOXAPARIN 40 MG/0.4 ML SYRINGE SUB-Q (09:57)
[2024-01-29 12:00] LABS: Glucose Point of Care 136 mg/dl (65-105)
[2024-01-29 12:00] LABS: Glucose Point of Care 154 mg/dl (65-105)
--- NOTE | 2024-01-29 16:21 | PM.IMPN ---
Progress Note: A&P Assessment and Plan (1) Sepsis: Qualifiers: Sepsis type: sepsis due to unspecified organism Sepsis acute organ dysfunction status: with acute organ dysfunction Severe sepsis acute organ dysfunction type: acute respiratory failure Acute respiratory failure type: with hypoxia Severe sepsis shock status: without septic shock Qualified Code(s): A41.9 - Sepsis, unspecified organism; R65.20 - Severe sepsis without septic shock; J96.01 - Acute respiratory failure with hypoxia Code(s): A41.9 - Sepsis, unspecified organism Status: Acute Assessment and Plan: Patient presents with abd pain and found to have lactic acidosis, fevers/chills and tachycardia. WBC was normal but up to 18K today. CTA chest negative for central PE and no acute process. Abd/pelvic CT scan showing mild left and moderate right UPJ obstruction, likely chronic. No obstructing stone or mass detected. Patient received 30 mL/kilos fluid bolus. Abx started after appropriate cultures obtained. UCx pending BCx NGTD Feels better. He may have passed a stone. Continue IV abx. Follow up on cultures (2) Pyelonephritis: Code(s): N12 - Tubulo-interstitial nephritis, not specified as acute or chronic Status: Acute Assessment and Plan: As above (3) UPJ (ureteropelvic junction) obstruction: Code(s): N13.5 - Crossing vessel and stricture of ureter without hydronephrosis Status: Acute Assessment and Plan: Abd/pelvic CT scan showing mild left and moderate right UPJ obstruction, likely chronic. No obstructing stone or mass detected. Urology consulted and appreciate their input. No plans for stent placement since patient is improved and no obvious stone or mass. May have passed a stone Follow (4) Polycythemia due to fall in plasma volume: Code(s): D75.1 - Secondary polycythemia Status: Acute Assessment and Plan: Hgb tends to run high end of normal but was 18.6 on admission. [place] related to plasma volume contraction. Hgb better with IV fluids. Allow fluid bag to run out and SLIVF. (5) Diabetes mellitus, type 2: Qualifiers: Diabetes mellitus penitentiary insulin use: without watermaster use Diabetes mellitus complication status: without complication Qualified Code(s): E11.9 - Type 2 diabetes mellitus without complications Code(s): E11.9 - Type 2 diabetes mellitus without complications Status: Acute Assessment and Plan: A1c was 6.1% in December. The patient's blood glucose was reviewed on 01/28 Glucose remains well controlled. Continue AccuCheks covering with sliding scale. Hypoglycemia protocol available as needed. Holding the patient's home Ozempic. Continue to follow (6) Hypoxia: Code(s): R09.02 - Hypoxemia Status: Acute Assessment and Plan: He had a transietly O2 requirement. Related to above Resolved. Plan DVT Prophylaxis - Lovenox Code status - Full Subjective Date/time seen: 01/29/24 16:21 Interval history: 63yo male with CAD, HTN, cLBP, DM and kidney stones here for lower abdominal pain. He was passing blood and sediment in the urine. He started on Flomax since he felt this was related to kidney stone. No pain now. No n/v. Eating well. Walking in the room Exam Narrative: AF 98.3 102/61 78 16 94% ra Gen - NARD Chest - CTA bilaterally, nml RR CV - RRR S1/S2. Tele showing PVCs Abd - Soft, NT/ND, Positive BS Back - no CVA tenderness Ext - No pedal edema Neuro - Alert and oriented. Nonfocal exam. Psych - Nml mood and affect Skin - Warm and dry Objective Data Vital Signs Vital Signs: Vital Signs - 24 hr 01/28/24 18:59 01/28/24 20:34 01/28/24 20:34 Temperature 98.5 F Pulse Rate 116 H 133 H Respiratory Rate 20 22 H Blood Pressure 132/83 152/78 H Pulse Oximetry 99 91 91 Oxygen Delivery Room Air Nasal Cannula Oxygen Flow Rate 4 01/28/24 21:49 01/28/24 21:50 01/29/24 00:05 Temperature 99.9 F H Pulse Rate 125 H 118 H Respiratory Rate 30 H 19 Blood Pressure 140/77 107/80 Pulse Oximetry 94 94 94 Oxygen Delivery Nasal Cannula Oxygen Flow Rate 3 01/29/24 01:24 01/29/24 02:10 01/29/24 04:00 Temperature 97.6 F Pulse Rate 114 H 102 H 82 Respiratory Rate 19 16 Blood Pressure 113/76 97/62 L Pulse Oximetry 95 91 Oxygen Delivery Oxygen Flow Rate 01/29/24 02:15 01/29/24 06:00 01/29/24 05:25 Temperature 97.7 F Pulse Rate 80 79 81 Respiratory Rate 16 Blood Pressure 97/56 L Pulse Oximetry 93 Oxygen Delivery Oxygen Flow Rate 01/29/24 07:29 01/29/24 08:15 01/29/24 08:00 Temperature 97.4 F L Pulse Rate 74 74 Respiratory Rate 16 Blood Pressure 103/58 L Pulse Oximetry 93 94 Oxygen Delivery Room Air Oxygen Flow Rate 01/29/24 10:00 01/29/24 11:41 01/29/24 12:00 Temperature 98.3 F Pulse Rate 87 83 80 Respiratory Rate 16 Blood Pressure 102/61 Pulse Oximetry 94 Oxygen Delivery Oxygen Flow Rate 01/29/24 14:00 Temperature Pulse Rate 78 Respiratory Rate Blood Pressure Pulse Oximetry Oxygen Delivery Oxygen Flow Rate Intake/Output Intake/Output: Intake & Output 01/26/24 01/27/24 01/28/24 01/29/24 23:59 23:59 23:59 23:59 Intake Total 2100 2440 Balance 2100 2440 Meds/Results Medications: Active Medications Generic Name Dose Route Start Last Admin Trade Name Freq PRN Reason Stop Dose Admin Acetaminophen 650 mg 01/29/24 00:41 Acetaminophen 325 Mg Tablet PO Q4H PRN Mild Pain (1-3) or Fever Hydrocodone Bitart/Acetaminophen 1 tab 01/29/24 04:14 Hydrocodone/Acetaminophen (*Crx) 5-325 Mg Tablet PO Q6H PRN pain 4-10 Alprazolam 0.25 mg 01/29/24 04:14 Alprazolam (*Crx) 0.25 Mg Tablet PO TID PRN Anxiety Aspirin 81 mg 01/29/24 09:00 01/29/24 08:28 Aspirin 81 Mg Enteric Tablet PO 81 mg DAILY SURI Administration Dextrose 12.5 gm 01/29/24 01:21 Dextrose 50% 25 Gm/50 Ml Syringe IV PUSH PRN PRN Hypoglycemia Protocol Diazepam 5 mg 01/29/24 04:14 Diazepam (*Crx) 5 Mg Tablet PO BID PRN muscle spasm Ezetimibe 10 mg 01/29/24 09:00 01/29/24 08:28 Ezetimibe 10 Mg Tablet PO 10 mg DAILY SURI Administration Enoxaparin Sodium 40 mg 01/29/24 09:00 01/29/24 09:57 Enoxaparin 40 Mg/0.4 Ml Syringe SUB-Q 40 mg DAILY SURI Administration Fluoxetine HCl 20 mg 01/29/24 18:00 Fluoxetine Hcl 20 Mg Capsule PO QPM SURI Glucagon 1 mg 01/29/24 01:21 Glucagon For Inj 1 Mg Vial IM PRN PRN Hypoglycemia Protocol Glucose 15 gm 01/29/24 01:21 Glucose Oral Gel 15 Gm Of Glucse In 37.5 Gm Tube PO PRN PRN Hypoglycemia Protocol Lactated Ringer's 1,000 mls @ 125 mls/hr 01/29/24 00:45 01/29/24 13:36 Lr - Lactated Ringers Iv IV CONT 125 mls/hr .Q8H SURI Administration Dextrose 1,000 mls @ 100 mls/hr 01/29/24 01:21 Dextrose 5% 1,000 Ml IVPB PRN PRN Hypoglycemia Protocol Piperacillin Sod/Tazobactam Sod 4.5 gm in 100 mls @ 200 mls/hr 01/29/24 09:00 01/29/24 10:27 Zosyn 4.5 Gm/Ns 100 Ml IVPB Infused Q6H [facility] Infusion Insulin Aspart 2 - 5 units 01/29/24 08:00 01/29/24 12:13 Insulin Aspart (*Bkc) 100 Units/Ml SUB-Q Not Given TIDWM [facility] Protocol Lidocaine 1 patch 01/29/24 04:14 Lidocaine 5% Patch TOPICAL DAILY PRN BACK PAIN Morphine Sulfate 4 mg 01/29/24 04:16 Morphine Sulfate (*Crx) 4 Mg/Ml Inj IV PUSH Q4H PRN Breakthrough Pain Ondansetron HCl 4 mg 01/29/24 01:24 01/29/24 03:10 Ondansetron Inj 4 Mg/2 Ml Vial IV PUSH 4 mg Q6H PRN Administration Nausea And Vomiting Tamsulosin HCl 0.4 mg 01/29/24 09:00 01/29/24 08:28 Tamsulosin Hcl 0.4 Mg Capsule PO 0.4 mg DAILY SURI Administration Zolpidem Tartrate 5 mg 01/29/24 04:14 Zolpidem Tartrate (*Crx) 5 Mg Tablet PO QHS PRN Insomnia Radiology Results: ITS Impressions Abdomen/Pelvis CT 01/28/24 20:07 IMPRESSION: Mild left and moderate right UPJ obstruction, likely chronic. No obstructing stone or mass detected. Mildly dilated small bowel loop in the mid abdomen, no transition point or obstructing mass. This may represent localized ileus. Early obstruction is not excluded. Chest CTA 01/28/24 21:34 IMPRESSION: Examination limited by motion artifact. Segmental and subsegmental pulmonary arteries not well evaluated. No central embolus detected. No acute process detected in the chest. Labs Labs: Laboratory Results - last 24 hr 01/28/24 01/28/24 01/28/24 20:30 20:31 20:32 WBC 6.2 RBC 5.82 Hgb 18.6 H Hct 53.9 H MCV 92.6 MCH 32.0 MCHC 34.5 RDW 13.7 Plt Count 156 MPV 9.1 Immature Gran % (Auto) 0.5 Neut % (Auto) 89.7 H Lymph % (Auto) 7.6 L [place] % (Auto) 1.1 L Eos % (Auto) 0.6 Baso % (Auto) 0.5 Lymph # (Auto) 0.47 L [place] # (Auto) 0.1 Eos # (Auto) 0.0 Baso # (Auto) 0.0 Abs Immat Gran (auto) 0.03 Absolute Neuts (auto) 5.6 Absolute Nucleated RBC 0.000 Nucleated RBC % 0.0 Sodium 138 Potassium 4.1 Chloride 101 Carbon Dioxide 24 Anion Gap 13 H BUN 23 H Creatinine 0.90 Estim Creat Clear Calc 69 Estimated GFR > 60 Glucose 154 H POC Capillary Glucose Lactic Acid 2.8 H Calcium 9.3 Total Bilirubin 1.3 AST 23 ALT 22 Alkaline Phosphatase 80 Troponin I < 0.012 Total Protein 8.0 Albumin 4.5 Lipase 142 Urine Color Yellow Urine Appearance Clear Urine pH 6.5 Ur Specific [place] 1.018 Urine Protein Trace Urine Glucose (UA) 3+ H Urine Ketones Negative Ur Blood (Man) 3+ H Urine Nitrate Positive H Urine Bilirubin Negative Urine Urobilinogen 0.2 Leukocyte Esterase Rfl 1+ H Urine RBC 51-100 H Urine WBC 51-100 H Ur Squamous Epith Cells Occasional Urine Bacteria 4+ H Urine Casts 0-2 01/28/24 01/29/24 01/29/24 23:54 02:28 07:33 WBC RBC Hgb Hct MCV MCH MCHC RDW Plt Count MPV Immature Gran % (Auto) Neut % (Auto) Lymph % (Auto) [place] % (Auto) Eos % (Auto) Baso % (Auto) Lymph # (Auto) [place] # (Auto) Eos # (Auto) Baso # (Auto) Abs Immat Gran (auto) Absolute Neuts (auto) Absolute Nucleated RBC Nucleated RBC % Sodium Potassium Chloride Carbon Dioxide Anion Gap BUN Creatinine Estim Creat Clear Calc Estimated GFR Glucose POC Capillary Glucose 166 H 154 H Lactic Acid 1.2 Calcium Total Bilirubin AST ALT Alkaline Phosphatase Troponin I Total Protein Albumin Lipase Urine Color Urine Appearance Urine pH Ur Specific [place] Urine Protein Urine Glucose (UA) Urine Ketones Ur Blood (Man) Urine Nitrate Urine Bilirubin Urine Urobilinogen Leukocyte Esterase Rfl Urine RBC Urine WBC Ur Squamous Epith Cells Urine Bacteria Urine Casts 01/29/24 01/29/24 08:52 11:47 WBC 18.2 H RBC 5.33 Hgb 17.0 Hct 50.4 MCV 94.6 MCH 31.9 MCHC 33.7 RDW 14.0 Plt Count 165 MPV 9.2 Immature Gran % (Auto) 0.9 H Neut % (Auto) 84.2 H Lymph % (Auto) 5.2 L [place] % (Auto) 9.4 H Eos % (Auto) 0.1 Baso % (Auto) 0.2 Lymph # (Auto) 0.94 [place] # (Auto) 1.7 H Eos # (Auto) 0.0 Baso # (Auto) 0.0 Abs Immat Gran (auto) 0.16 H Absolute Neuts (auto) 15.3 H Absolute Nucleated RBC 0.000 Nucleated RBC % 0.0 Sodium 137 Potassium 4.2 Chloride 101 Carbon Dioxide 28 Anion Gap 8 BUN 22 H Creatinine 0.90 Estim Creat Clear Calc 69 Estimated GFR > 60 Glucose 139 H POC Capillary Glucose 136 H Lactic Acid Calcium 8.9 Total Bilirubin AST ALT Alkaline Phosphatase Troponin I Total Protein Albumin Lipase Urine Color Urine Appearance Urine pH Ur Specific [place] Urine Protein Urine Glucose (UA) Urine Ketones Ur Blood (Man) Urine Nitrate Urine Bilirubin Urine Urobilinogen Leukocyte Esterase Rfl Urine RBC Urine WBC Ur Squamous Epith Cells Urine Bacteria Urine Casts
[2024-01-29 16:40] LABS: Glucose Point of Care 117 mg/dl (65-105)
[2024-01-29] MEDS: FLUoxetine HCL 20 MG CAPSULE PO (19:35)
[2024-01-29 21:10] LABS: Glucose Point of Care 135 mg/dl (65-105)
[2024-01-30] VITALS (17 sets, daily range): BP systolic 116–139; BP diastolic 69–84; PULSE 78–96; RESP 14–18; TEMP 36.2–37.2; O2SAT 95–97
[2024-01-30] MEDS: PIPERACILLIN/TAZ 4.5G/NS 100ML 4.5 GM/100 ML BAG IVPB ×4 (03:08→20:09)
[2024-01-30 06:03] LABS: Basophils Percent Auto 0.3 % (0.2-1.2); Eosinophils Absolute Auto 0.2 K/mm3 (0-0.3); Eosinophils Percent Auto 1.6 % (0-4.4); Hematocrit 49.1 % (42.0-52.0); Hemoglobin 16.6 g/dL (14.0-18.0); Immature Granulocyte Absolute 0.06 K/mm3 (0.00-0.031); Immature Granulocyte Percent A 0.5 % (0-0.5); Lymphocytes Absolute Auto 1.57 K/mm3 (0.9-3.2); Lymphocytes Percent Auto 12.5 % (18.3-44.2); Mean Corpuscular HGB Conc 33.8 g/dl (32-36); Mean Corpuscular Hemoglobin 32.2 pg (26-34); Mean Corpuscular Volume 95.2 fl (80-100); Mean Platelet Volume 9.2 fl (7.4-10.4); Monocytes Absolute Auto 1.3 K/mm3 (0.1-0.6); Monocytes Percent Auto 9.9 % (2.6-8.5); Neutrophils Absolute Auto 9.5 K/mm3 (1.3-6.7); Neutrophils Percent Auto 75.2 % (45.5-73.1); Platelet Count Result 148 k/mm3 (150-375); Red Blood Count 5.16 M/mm3 (4.6-6.20); Red Cell Distribution Width 13.6 % (11.5-14.5); White Blood Count 12.6 K/mm3 (4.5-10.0)
[2024-01-30 06:25] LABS: Albumin Level 3.4 g/dL (3.5-5.1); Anion Gap 7 mmol/L (4-12); Blood Urea Nitrogen 22 mg/dL (9-20); Calcium 8.6 mg/dL (8.4-10.2); Carbon Dioxide 26 mmol/L (22-30); Chloride 104 mmol/L (98-107); Estimated CRCL calculation 69 ml/min; Estimated Glomerular Filt Rate > 60; Glucose 96 mg/dL (65-110); Phosphorus 2.5 mg/dL (2.5-4.5); Potassium 3.9 mmol/L (3.4-5.0); Sodium 137 mmol/L (137-145)
[2024-01-30 08:39] LABS: Glucose Point of Care 115 mg/dl (65-105)
[2024-01-30] MEDS: ENOXAPARIN 40 MG/0.4 ML SYRINGE SUB-Q (09:55)
[2024-01-30] MEDS: ASPIRIN 81 MG ENTERIC TABLET PO (09:55)
[2024-01-30] MEDS: TAMSULOSIN HCL 0.4 MG CAPSULE PO (09:55)
[2024-01-30] MEDS: EZETIMIBE 10 MG TABLET PO (09:55)
[2024-01-30 15:28] LABS: Glucose Point of Care 110 mg/dl (65-105)
--- NOTE | 2024-01-30 17:04 | P.PNIM_ITS ---
Progress Note: A&P Assessment and Plan (1) Sepsis: Qualifiers: Sepsis type: sepsis due to unspecified organism Sepsis acute organ dysfunction status: with acute organ dysfunction Severe sepsis acute organ dysfunction type: acute respiratory failure Acute respiratory failure type: with hypoxia Severe sepsis shock status: without septic shock Qualified Code(s): A41.9 - Sepsis, unspecified organism; R65.20 - Severe sepsis without septic shock; J96.01 - Acute respiratory failure with hypoxia Code(s): A41.9 - Sepsis, unspecified organism Status: Acute Assessment and Plan: Patient presents with abd pain and found to have lactic acidosis, fevers/chills and tachycardia. WBC was normal but up to 18K CTA chest negative for central PE and no acute process. Abd/pelvic CT scan showing mild left and moderate right UPJ obstruction, likely chronic. No obstructing stone or mass detected. Patient received 30 mL/kilos fluid bolus. Abx started after appropriate cultures obtained. UCx EColi BCx NGTD Feels better. He may have passed a stone. Continue IV abx. Follow up on sensitivities (2) Pyelonephritis: Code(s): N12 - Tubulo-interstitial nephritis, not specified as acute or chronic Status: Acute Assessment and Plan: As above (3) UPJ (ureteropelvic junction) obstruction: Code(s): N13.5 - Crossing vessel and stricture of ureter without hydronephrosis Status: Acute Assessment and Plan: Abd/pelvic CT scan showing mild left and moderate right UPJ obstruction, likely chronic. No obstructing stone or mass detected. Urology consulted and appreciate their input. No plans for stent placement since patient is improved and no obvious stone or mass. May have passed a stone Follow (4) Polycythemia due to fall in plasma volume: Code(s): D75.1 - Secondary polycythemia Status: Acute Assessment and Plan: Hgb tends to run high end of normal but was 18.6 on admission. [place] related to plasma volume contraction. Hgb better with IV fluids. Hgb normal today (5) Diabetes mellitus, type 2: Qualifiers: Diabetes mellitus alf insulin use: without alf use Diabetes mellitus complication status: without complication Qualified Code(s): E11.9 - Type 2 diabetes mellitus without complications Code(s): E11.9 - Type 2 diabetes mellitus without complications Status: Acute Assessment and Plan: A1c was 6.1% in December. The patient's blood glucose was reviewed on 01/29 Glucose remains well controlled. Continue AccuCheks covering with sliding scale. Hypoglycemia protocol available as needed. Holding the patient's home Ozempic. Continue to follow (6) Hypoxia: Code(s): R09.02 - Hypoxemia Status: Acute Assessment and Plan: He had a transietly O2 requirement. Related to above Resolved. Plan DVT Prophylaxis - Lovenox Code status - Full Subjective Date/time seen: 01/30/24 17:04 Interval history: 63yo male with CAD, HTN, cLBP, DM and kidney stones here for lower abdominal pain. No problems overnight. +BMs. Good UOP. No abd or back pain. Exam Narrative: AF 98.3 134/79 93 16 97% ra Gen - NARD Chest - CTA bilaterally, nml RR CV - RRR S1/S2 Abd - Soft, NT/ND, Positive BS Ext - No pedal edema Psych - Nml mood and affect Skin - Warm and dry Objective Data Vital Signs Vital Signs: Vital Signs - 24 hr 01/29/24 18:00 01/29/24 20:46 01/29/24 20:00 Temperature 97.8 F Pulse Rate 78 86 Respiratory Rate 20 Blood Pressure 120/66 Pulse Oximetry 96 Oxygen Delivery Room Air 01/29/24 20:00 01/29/24 22:00 01/29/24 23:41 Temperature 97.6 F Pulse Rate 80 83 71 Respiratory Rate 20 Blood Pressure 130/69 Pulse Oximetry 97 Oxygen Delivery 01/30/24 00:00 01/30/24 00:00 01/30/24 02:00 Temperature Pulse Rate 79 81 Respiratory Rate Blood Pressure Pulse Oximetry Oxygen Delivery Room Air 01/30/24 03:13 01/30/24 03:21 01/30/24 04:00 Temperature 97.1 F L Pulse Rate 87 86 Respiratory Rate 14 Blood Pressure 122/75 Pulse Oximetry 95 Oxygen Delivery Room Air 01/30/24 06:00 01/30/24 07:52 01/30/24 08:00 Temperature 98.9 F Pulse Rate 87 92 93 Respiratory Rate 16 Blood Pressure 116/69 Pulse Oximetry 96 Oxygen Delivery 01/30/24 08:00 01/30/24 10:00 01/30/24 11:01 Temperature Pulse Rate 92 89 87 Respiratory Rate 16 Blood Pressure Pulse Oximetry 96 Oxygen Delivery Room Air 01/30/24 11:01 01/30/24 11:33 01/30/24 14:00 Temperature 98.8 F Pulse Rate 88 79 Respiratory Rate 16 Blood Pressure 131/84 Pulse Oximetry 95 Oxygen Delivery Room Air 01/30/24 15:15 01/30/24 15:15 01/30/24 15:44 Temperature 98.3 F Pulse Rate 78 78 Respiratory Rate 16 Blood Pressure 134/79 Pulse Oximetry 95 97 Oxygen Delivery Room Air 01/30/24 16:44 Temperature Pulse Rate 93 Respiratory Rate Blood Pressure Pulse Oximetry Oxygen Delivery Intake/Output Intake/Output: Intake & Output 01/27/24 01/28/24 01/29/24 01/30/24 23:59 23:59 23:59 23:59 Intake Total 2100 2880 2470 Output Total 300 1000 Balance 2100 2580 1470 Meds/Results Medications: Active Medications Generic Name Dose Route Start Last Admin Trade Name Freq PRN Reason Stop Dose Admin Acetaminophen 650 mg 01/29/24 00:41 Acetaminophen 325 Mg Tablet PO Q4H PRN Mild Pain (1-3) or Fever Hydrocodone Bitart/Acetaminophen 1 tab 01/29/24 04:14 Hydrocodone/Acetaminophen (*Crx) 5-325 Mg Tablet PO Q6H PRN pain 4-10 Alprazolam 0.25 mg 01/29/24 04:14 Alprazolam (*Crx) 0.25 Mg Tablet PO TID PRN Anxiety Aspirin 81 mg 01/29/24 09:00 01/30/24 09:55 Aspirin 81 Mg Enteric Tablet PO 81 mg DAILY SURI Administration Dextrose 12.5 gm 01/29/24 01:21 Dextrose 50% 25 Gm/50 Ml Syringe IV PUSH PRN PRN Hypoglycemia Protocol Diazepam 5 mg 01/29/24 04:14 Diazepam (*Crx) 5 Mg Tablet PO BID PRN muscle spasm Ezetimibe 10 mg 01/29/24 09:00 01/30/24 09:55 Ezetimibe 10 Mg Tablet PO 10 mg DAILY SURI Administration Enoxaparin Sodium 40 mg 01/29/24 09:00 01/30/24 09:55 Enoxaparin 40 Mg/0.4 Ml Syringe SUB-Q 40 mg DAILY SURI Administration Fluoxetine HCl 20 mg 01/29/24 18:00 01/29/24 19:35 Fluoxetine Hcl 20 Mg Capsule PO 20 mg QPM SURI Administration Glucagon 1 mg 01/29/24 01:21 Glucagon For Inj 1 Mg Vial IM PRN PRN Hypoglycemia Protocol Glucose 15 gm 01/29/24 01:21 Glucose Oral Gel 15 Gm Of Glucse In 37.5 Gm Tube PO PRN PRN Hypoglycemia Protocol Dextrose 1,000 mls @ 100 mls/hr 01/29/24 01:21 Dextrose 5% 1,000 Ml IVPB PRN PRN Hypoglycemia Protocol Piperacillin Sod/Tazobactam Sod 4.5 gm in 100 mls @ 200 mls/hr 01/29/24 09:00 01/30/24 15:26 Zosyn 4.5 Gm/Ns 100 Ml IVPB 200 mls/hr Q6H SUIR Administration Insulin Aspart 2 - 5 units 01/29/24 08:00 01/30/24 16:46 Insulin Aspart (*Bkc) 100 Units/Ml SUB-Q Not Given TIDWM [facility] Protocol Lidocaine 1 patch 01/29/24 04:14 Lidocaine 5% Patch TOPICAL DAILY PRN BACK PAIN Morphine Sulfate 4 mg 01/29/24 04:16 Morphine Sulfate (*Crx) 4 Mg/Ml Inj IV PUSH Q4H PRN Breakthrough Pain Ondansetron HCl 4 mg 01/29/24 01:24 01/29/24 03:10 Ondansetron Inj 4 Mg/2 Ml Vial IV PUSH 4 mg Q6H PRN Administration Nausea And Vomiting Tamsulosin HCl 0.4 mg 01/29/24 09:00 01/30/24 09:55 Tamsulosin Hcl 0.4 Mg Capsule PO 0.4 mg DAILY SURI Administration Zolpidem Tartrate 5 mg 01/29/24 04:14 Zolpidem Tartrate (*Crx) 5 Mg Tablet PO QHS PRN Insomnia Radiology Results: ITS Impressions Abdomen/Pelvis CT 01/28/24 20:07 IMPRESSION: Mild left and moderate right UPJ obstruction, likely chronic. No obstructing stone or mass detected. Mildly dilated small bowel loop in the mid abdomen, no transition point or obstructing mass. This may represent localized ileus. Early obstruction is not excluded. Chest CTA 01/28/24 21:34 IMPRESSION: Examination limited by motion artifact. Segmental and subsegmental pulmonary arteries not well evaluated. No central embolus detected. No acute process detected in the chest. Labs Labs: Laboratory Results - last 24 hr 01/29/24 01/30/24 01/30/24 21:06 05:26 07:58 WBC 12.6 H RBC 5.16 Hgb 16.6 Hct 49.1 MCV 95.2 MCH 32.2 MCHC 33.8 RDW 13.6 Plt Count 148 L MPV 9.2 Immature Gran % (Auto) 0.5 Neut % (Auto) 75.2 H Lymph % (Auto) 12.5 L [place] % (Auto) 9.9 H Eos % (Auto) 1.6 Baso % (Auto) 0.3 Lymph # (Auto) 1.57 [place] # (Auto) 1.3 H Eos # (Auto) 0.2 Baso # (Auto) 0.0 Abs Immat Gran (auto) 0.06 H Absolute Neuts (auto) 9.5 H Absolute Nucleated RBC 0.000 Nucleated RBC % 0.0 Sodium 137 Potassium 3.9 Chloride 104 Carbon Dioxide 26 Anion Gap 7 BUN 22 H Creatinine 0.90 Estim Creat Clear Calc 69 Estimated GFR > 60 Glucose 96 POC Capillary Glucose 135 H 115 H Calcium 8.6 Phosphorus 2.5 Albumin 3.4 L 01/30/24 15:24 WBC RBC Hgb Hct MCV MCH MCHC RDW Plt Count MPV Immature Gran % (Auto) Neut % (Auto) Lymph % (Auto) [place] % (Auto) Eos % (Auto) Baso % (Auto) Lymph # (Auto) [place] # (Auto) Eos # (Auto) Baso # (Auto) Abs Immat Gran (auto) Absolute Neuts (auto) Absolute Nucleated RBC Nucleated RBC % Sodium Potassium Chloride Carbon Dioxide Anion Gap BUN Creatinine Estim Creat Clear Calc Estimated GFR Glucose POC Capillary Glucose 110 H Calcium Phosphorus Albumin
[2024-01-30] MEDS: FLUoxetine HCL 20 MG CAPSULE PO (19:14)
[2024-01-30 19:45] LABS: Glucose Point of Care 91 mg/dl (65-105)
[2024-01-30 20:07] LABS: Glucose Point of Care 134 mg/dl (65-105)
[2024-01-31] MEDS: PIPERACILLIN/TAZ 4.5G/NS 100ML 4.5 GM/100 ML BAG IVPB (02:31)
[2024-01-31] MEDS: ACETAMINOPHEN 325 MG TABLET 650 MG PO (02:34)
[2024-01-31 06:00] VITALS: BP 135/77; PULSE 80; RESP 18; TEMP 36.4; O2SAT 97
[2024-01-31 07:49] LABS: Glucose Point of Care 117 mg/dl (65-105)
[2024-01-31 08:32] LABS: Basophils Absolute Auto 0.1 K/mm3 (0.0-0.1); Basophils Percent Auto 0.7 % (0.2-1.2); Eosinophils Absolute Auto 0.2 K/mm3 (0-0.3); Eosinophils Percent Auto 3.3 % (0-4.4); Hematocrit 52.2 % (42.0-52.0); Hemoglobin 17.3 g/dL (14.0-18.0); Immature Granulocyte Absolute 0.05 K/mm3 (0.00-0.031); Immature Granulocyte Percent A 0.7 % (0-0.5); Lymphocytes Absolute Auto 1.51 K/mm3 (0.9-3.2); Lymphocytes Percent Auto 21.5 % (18.3-44.2); Mean Corpuscular HGB Conc 33.1 g/dl (32-36); Mean Corpuscular Hemoglobin 31.5 pg (26-34); Mean Corpuscular Volume 94.9 fl (80-100); Mean Platelet Volume 8.6 fl (7.4-10.4); Monocytes Absolute Auto 0.9 K/mm3 (0.1-0.6); Monocytes Percent Auto 12.9 % (2.6-8.5); Neutrophils Absolute Auto 4.3 K/mm3 (1.3-6.7); Neutrophils Percent Auto 60.9 % (45.5-73.1); Platelet Count Result 170 k/mm3 (150-375); Red Cell Distribution Width 13.4 % (11.5-14.5)
[2024-01-31 08:57] LABS: Alanine Aminotransferase 17 U/L (6-50); Albumin Level 3.9 g/dL (3.5-5.1); Alkaline Phosphatase 50 U/L (38-126); Anion Gap 7 mmol/L (4-12); Aspartate Amino Transferase 19 U/L (17-59); Bilirubin,Total 0.7 mg/dL (0.2-1.3); Blood Urea Nitrogen 13 mg/dL (9-20); Calcium 8.9 mg/dL (8.4-10.2); Carbon Dioxide 26 mmol/L (22-30); Chloride 104 mmol/L (98-107); Estimated CRCL calculation 78 ml/min; Estimated Glomerular Filt Rate > 60; Glucose 98 mg/dL (65-110); Potassium 4.4 mmol/L (3.4-5.0); Sodium 137 mmol/L (137-145)
--- NOTE | 2024-01-31 09:42 | P.PNUR_ITS ---
Progress Note: A&P Assessment and Plan (1) Acute UTI: Code(s): N39.0 - Urinary tract infection, site not specified Status: Acute Assessment and Plan: Urine culture with growth of pansensitive E coli. Has been transition to p.o. Augmentin. WBC is within normal limits. Patient remains afebrile. Okay for discharge home from urologic standpoint on course of p.o. antibiotics. (2) UPJ (ureteropelvic junction) obstruction: Code(s): N13.5 - Crossing vessel and stricture of ureter without hydronephrosis Status: Acute Assessment and Plan: Appears to be chronic in nature without overt evidence of hydronephrosis but more likely with patulous extrarenal pelvis. Will plan for outpatient CT urogram and cystoscopy. Will also likely require outpatient Lasix renal scan. No indication for stent placement at this time given no findings of sepsis and normal renal function, creatinine 0.8. Subjective Subjective Date/Time Seen: 01/31/24 09:42 Interval history: Mark is feeling greatly improved today. He denies back pain or flank pain. No nausea, vomiting, fever, or chills. He is tolerating his diet. Eager for discharge home. Review of Systems Review of Systems: All systems reviewed & are unremarkable except as noted in HPI and below Exam Narrative: General: Awake, alert, comfortable, no acute distress HEENT: Normocephalic, atraumatic, sclerae anicteric Respiratory: Normal respiratory effort, no accessory muscle use Abdomen: Nondistended, soft, nontender Skin: Normal coloration, warm and dry Neurologic: No focal neuro deficits noted Psychiatric: Appropriate mood and affect, judgment and insight intact Objective Data Vital Signs Vital Signs: Vital Signs - 24 hr 01/30/24 10:00 01/30/24 11:01 01/30/24 11:01 Temperature Pulse Rate 89 87 Respiratory Rate Blood Pressure Pulse Oximetry Oxygen Delivery Room Air 01/30/24 11:33 01/30/24 14:00 01/30/24 15:15 Temperature 98.8 F Pulse Rate 88 79 78 Respiratory Rate 16 Blood Pressure 131/84 Pulse Oximetry 95 Oxygen Delivery 01/30/24 15:15 01/30/24 15:44 01/30/24 16:44 Temperature 98.3 F Pulse Rate 78 93 Respiratory Rate 16 Blood Pressure 134/79 Pulse Oximetry 95 97 Oxygen Delivery Room Air 01/30/24 19:38 01/30/24 21:11 01/30/24 20:00 Temperature 97.7 F 97.5 F L Pulse Rate 90 80 96 Respiratory Rate 16 18 Blood Pressure 134/70 139/77 Pulse Oximetry 95 95 Oxygen Delivery 01/31/24 06:00 Temperature 97.6 F Pulse Rate 80 Respiratory Rate 18 Blood Pressure 135/77 Pulse Oximetry 97 Oxygen Delivery Intake/Output Intake/Output: Intake & Output 01/28/24 01/29/24 01/30/24 01/31/24 23:59 23:59 23:59 23:59 Intake Total 2100 2880 2910 200 Output Total 300 2000 550 Balance 2100 2580 910 -350 Meds/Results Medications: Active Medications Generic Name Dose Route Start Last Admin Trade Name Freq PRN Reason Stop Dose Admin Acetaminophen 650 mg 01/29/24 00:41 01/31/24 02:34 Acetaminophen 325 Mg Tablet PO 650 mg Q4H PRN Administration Mild Pain (1-3) or Fever Hydrocodone Bitart/Acetaminophen 1 tab 01/29/24 04:14 Hydrocodone/Acetaminophen (*Crx) 5-325 Mg Tablet PO Q6H PRN pain 4-10 Alprazolam 0.25 mg 01/29/24 04:14 Alprazolam (*Crx) 0.25 Mg Tablet PO TID PRN Anxiety Amoxicillin/Clavulanate Potassium 1 tablet 01/31/24 09:00 Amoxicillin/Clavulanate K 875-125 Mg Tab PO 02/04/24 09:01 Q12HR SURI Aspirin 81 mg 01/29/24 09:00 01/30/24 09:55 Aspirin 81 Mg Enteric Tablet PO 81 mg DAILY SURI Administration Dextrose 12.5 gm 01/29/24 01:21 Dextrose 50% 25 Gm/50 Ml Syringe IV PUSH PRN PRN Hypoglycemia Protocol Diazepam 5 mg 01/29/24 04:14 Diazepam (*Crx) 5 Mg Tablet PO BID PRN muscle spasm Ezetimibe 10 mg 01/29/24 09:00 01/30/24 09:55 Ezetimibe 10 Mg Tablet PO 10 mg DAILY SURI Administration Enoxaparin Sodium 40 mg 01/29/24 09:00 01/30/24 09:55 Enoxaparin 40 Mg/0.4 Ml Syringe SUB-Q 40 mg DAILY SURI Administration Fluoxetine HCl 20 mg 01/29/24 18:00 01/30/24 19:14 Fluoxetine Hcl 20 Mg Capsule PO 20 mg QPM SURI Administration Glucagon 1 mg 01/29/24 01:21 Glucagon For Inj 1 Mg Vial IM PRN PRN Hypoglycemia Protocol Glucose 15 gm 01/29/24 01:21 Glucose Oral Gel 15 Gm Of Glucse In 37.5 Gm Tube PO PRN PRN Hypoglycemia Protocol Dextrose 1,000 mls @ 100 mls/hr 01/29/24 01:21 Dextrose 5% 1,000 Ml IVPB PRN PRN Hypoglycemia Protocol Insulin Aspart 2 - 5 units 01/29/24 08:00 01/30/24 16:46 Insulin Aspart (*Bkc) 100 Units/Ml SUB-Q Not Given TIDWM PENDING SALE TO [facility] Protocol Lidocaine 1 patch 01/29/24 04:14 Lidocaine 5% Patch TOPICAL DAILY PRN BACK PAIN Lisinopril 20 mg 01/31/24 07:27 Lisinopril 20 Mg Tablet PO QPM PENDING SALE TO [facility] Metoprolol Succinate 50 mg 01/31/24 09:00 Metoprolol Succinate Ext Rel 50 Mg Tabcr PO QAM PENDING SALE TO [facility] Morphine Sulfate 4 mg 01/29/24 04:16 Morphine Sulfate (*Crx) 4 Mg/Ml Inj IV PUSH Q4H PRN Breakthrough Pain Ondansetron HCl 4 mg 01/29/24 01:24 01/29/24 03:10 Ondansetron Inj 4 Mg/2 Ml Vial IV PUSH 4 mg Q6H PRN Administration Nausea And Vomiting Tamsulosin HCl 0.4 mg 01/29/24 09:00 01/30/24 09:55 Tamsulosin Hcl 0.4 Mg Capsule PO 0.4 mg DAILY PENDING SALE TO [facility] Administration Zolpidem Tartrate 5 mg 01/29/24 04:14 Zolpidem Tartrate (*Crx) 5 Mg Tablet PO QHS PRN Insomnia Radiology Results: ITS Impressions Abdomen/Pelvis CT 01/28/24 20:07 IMPRESSION: Mild left and moderate right UPJ obstruction, likely chronic. No obstructing stone or mass detected. Mildly dilated small bowel loop in the mid abdomen, no transition point or obstructing mass. This may represent localized ileus. Early obstruction is not excluded. Chest CTA 01/28/24 21:34 IMPRESSION: Examination limited by motion artifact. Segmental and subsegmental pulmonary arteries not well evaluated. No central embolus detected. No acute process detected in the chest. Labs Labs: Laboratory Results - last 24 hr 01/30/24 01/30/24 01/30/24 11:23 15:24 19:56 WBC RBC Hgb Hct MCV MCH MCHC RDW Plt Count MPV Immature Gran % (Auto) Neut % (Auto) Lymph % (Auto) [place] % (Auto) Eos % (Auto) Baso % (Auto) Lymph # (Auto) [place] # (Auto) Eos # (Auto) Baso # (Auto) Abs Immat Gran (auto) Absolute Neuts (auto) Absolute Nucleated RBC Nucleated RBC % Sodium Potassium Chloride Carbon Dioxide Anion Gap BUN Creatinine Estim Creat Clear Calc Estimated GFR Glucose POC Capillary Glucose 91 110 H 134 H Calcium Total Bilirubin AST ALT Alkaline Phosphatase Total Protein Albumin 01/31/24 01/31/24 07:45 08:27 WBC 7.0 RBC 5.50 Hgb 17.3 Hct 52.2 H MCV 94.9 MCH 31.5 MCHC 33.1 RDW 13.4 Plt Count 170 MPV 8.6 Immature Gran % (Auto) 0.7 H Neut % (Auto) 60.9 Lymph % (Auto) 21.5 [place] % (Auto) 12.9 H Eos % (Auto) 3.3 Baso % (Auto) 0.7 Lymph # (Auto) 1.51 [place] # (Auto) 0.9 H Eos # (Auto) 0.2 Baso # (Auto) 0.1 Abs Immat Gran (auto) 0.05 H Absolute Neuts (auto) 4.3 Absolute Nucleated RBC 0.000 Nucleated RBC % 0.0 Sodium 137 Potassium 4.4 Chloride 104 Carbon Dioxide 26 Anion Gap 7 BUN 13 D Creatinine 0.80 Estim Creat Clear Calc 78 Estimated GFR > 60 Glucose 98 POC Capillary Glucose 117 H Calcium 8.9 Total Bilirubin 0.7 AST 19 ALT 17 Alkaline Phosphatase 50 Total Protein 7.0 Albumin 3.9
[2024-01-31] MEDS: ASPIRIN 81 MG ENTERIC TABLET PO (10:06)
[2024-01-31] MEDS: TAMSULOSIN HCL 0.4 MG CAPSULE PO (10:06)
[2024-01-31 10:07] VITALS: BP 144/80; PULSE 84
[2024-01-31] MEDS: EZETIMIBE 10 MG TABLET PO (10:07)
[2024-01-31] MEDS: METOPROLOL SUCCINATE EXT REL 50 MG TABCR PO (10:07)
[2024-01-31] MEDS: ENOXAPARIN 40 MG/0.4 ML SYRINGE SUB-Q (10:07)
[2024-01-31] MEDS: lisinopriL 20 MG TABLET PO (10:07)
[2024-01-31] MEDS: AMOXICILLIN/CLAVULANATE K 875-125 MG TAB 1 TABLET PO (10:07)
--- NOTE | 2024-01-31 11:34 | P.DS_ITS ---
DS: Admitting Diagnosis Discharge Date 01/31/24 Admitting Diagnosis Lower abdominal pain DS: Discharge Diagnosis Discharge Diagnosis (1) Sepsis: Qualifiers: Sepsis type: sepsis due to unspecified organism Sepsis acute organ dysfunction status: with acute organ dysfunction Severe sepsis acute organ dysfunction type: acute respiratory failure Acute respiratory failure type: with hypoxia Severe sepsis shock status: without septic shock Qualified Code(s): A41.9 - Sepsis, unspecified organism; R65.20 - Severe sepsis without septic shock; J96.01 - Acute respiratory failure with hypoxia Code(s): A41.9 - Sepsis, unspecified organism Status: Acute (2) Pyelonephritis: Code(s): N12 - Tubulo-interstitial nephritis, not specified as acute or chronic Status: Acute (3) UPJ (ureteropelvic junction) obstruction: Code(s): N13.5 - Crossing vessel and stricture of ureter without hydronephrosis Status: Acute (4) Polycythemia due to fall in plasma volume: Code(s): D75.1 - Secondary polycythemia Status: Acute (5) Diabetes mellitus, type 2: Qualifiers: Diabetes mellitus long term acute care registered nurse insulin use: without prison use Diabetes mellitus complication status: without complication Qualified Code(s): E11.9 - Type 2 diabetes mellitus without complications Code(s): E11.9 - Type 2 diabetes mellitus without complications Status: Acute (6) Hypoxia: Code(s): R09.02 - Hypoxemia Status: Acute DS: Summary Hospital Course Reason for hospitalization: 63yo male with CAD, HTN, cLBP, DM and kidney stones here for lower abdominal pain. Please see H&P for details Hospital Course: Patient presents with abd pain and found to have lactic acidosis, fevers/chills and tachycardia consistent with sepsis. WBC was normal but up to 18K the next day. CTA chest negative for central PE and no acute process. Abd/pelvic CT scan showing mild left and moderate right UPJ obstruction, likely chronic. No obstructing stone or mass detected. Patient received 30 mL/kilos fluid bolus. Abx started after appropriate cultures obtained. UCx EColi that was p ansensitive. BCx NGTD. Urology consulted and appreciate their input. No plans for stent placement since patient is improved and no obvious stone or mass. Hgb tends to run high end of normal but was 18.6 on admission. [place] related to plasma volume contraction and/or testosterone. Hgb better with IV fluids. Patient overall did well and was able to be discharged home on 01/31/24. Status at Discharge Cognitive/behavioral status at discharge: stable Time Spent with Patient Time attestation: Total time spent providing and/or coordinating discharge services: 35 minutes Time spent: Greater than 30 minutes Exam Narrative: AF 97.6 144/80 84 18 97% ra Gen - NARD Chest - CTA bilaterally, nml RR CV - RRR S1/S2 Abd - Soft, NT/ND, Positive BS Ext - No pedal edema Psych - Nml mood and affect Skin - Warm and dry DS: Data Data Completed and Pending Labs on day of discharge: Labs from last 24 hours 01/31/24 01/31/24 01/30/24 08:27 07:45 19:56 WBC 7.0 RBC 5.50 Hgb 17.3 Hct 52.2 H MCV 94.9 MCH 31.5 MCHC 33.1 RDW 13.4 Plt Count 170 MPV 8.6 Immature Gran % (Auto) 0.7 H Neut % (Auto) 60.9 Lymph % (Auto) 21.5 [place] % (Auto) 12.9 H Eos % (Auto) 3.3 Baso % (Auto) 0.7 Lymph # (Auto) 1.51 [place] # (Auto) 0.9 H Eos # (Auto) 0.2 Baso # (Auto) 0.1 Abs Immat Gran (auto) 0.05 H Absolute Neuts (auto) 4.3 Absolute Nucleated RBC 0.000 Nucleated RBC % 0.0 Sodium 137 Potassium 4.4 Chloride 104 Carbon Dioxide 26 Anion Gap 7 BUN 13 D Creatinine 0.80 Estim Creat Clear Calc 78 Estimated GFR > 60 Glucose 98 POC Capillary Glucose 117 H 134 H Calcium 8.9 Total Bilirubin 0.7 AST 19 ALT 17 Alkaline Phosphatase 50 Total Protein 7.0 Albumin 3.9 01/30/24 01/30/24 15:24 11:23 WBC RBC Hgb Hct MCV MCH MCHC RDW Plt Count MPV Immature Gran % (Auto) Neut % (Auto) Lymph % (Auto) [place] % (Auto) Eos % (Auto) Baso % (Auto) Lymph # (Auto) [place] # (Auto) Eos # (Auto) Baso # (Auto) Abs Immat Gran (auto) Absolute Neuts (auto) Absolute Nucleated RBC Nucleated RBC % Sodium Potassium Chloride Carbon Dioxide Anion Gap BUN Creatinine Estim Creat Clear Calc Estimated GFR Glucose POC Capillary Glucose 110 H 91 Calcium Total Bilirubin AST ALT Alkaline Phosphatase Total Protein Albumin Preliminary micro results at discharge 01/28/24 20:31 Blood Culture - Preliminary Blood 01/28/24 20:31 Blood Culture - Preliminary Blood Discharge Plan Discharge Attending physician on discharge: Frandy Maldonado Consulting providers: Chevy Moreno Discharging Clinician: Frandy Maldonado Anticipated Discharge Date/Time: 01/31/24 11:41 Patient Disposition: Home, Self-Care Activity: as tolerated Diet: diabetic Discharge Instructions: Please check glucose before meals and before bed. Record and bring into your doctor for review. Check blood pressure 1 to 2 times a day. Record and bring into your doctor for review. Call your doctor if your blood pressure is greater than 180/110. Please complete your antibiotic course even if you are starting to feel well. Take precautions to avoid falls. Rise slowly from a lying or sitting position. Pause before standing or walking. Contact your doctor or call 911 and come to the Emergency Room if you have any blood in urine, fevers, lightheadedness with standing or other worrisome symptoms. Avoid NSAIDs (ibuprofen, naproxen, Aleve). Tylenol is safe to take. Follow-up with your primary care provider in 1-2 weeks. Please call for appointment. Follow-up with Urology in 1-2 weeks. Please call for an appointment. Thank you for using [facility] for your health care needs. Patient Instructions: Antibiotic Form, Urinary Tract Infection in Men (GEN), Sepsis (GEN) Stand Alone Forms: General Discharge Information Follow-up/Referrals: Farhad Peters MD [Primary Care Provider] - Call for Appointment Chevy Moreno MD [Physician] - Call for Appointment Discharge Medications: New amoxicillin-pot clavulanate 875-125 mg tablet 1 tablet PO Q12H Qty: 8 0RF Continued aspirin 81 mg tablet,delayed release (DR/EC) 81 mg PO DAILY zolpidem 5 mg tablet 5 mg PO QHS PRN (Reason: Insomnia) Qty: 30 0RF lidocaine 5 % adhesive patch,medicated See Rx Instructions .ROUTE .COMPLEX PRN (Reason: Pain) Rx Instructions: APPLY TO AFFECTED AREA (BACK) ONCE A DAY NEEDED *LEAVE ON FOR 12 HOURS THEN REMOVE FOR 12 HOURS* alprazolam [Xanax] 0.25 mg tablet 0.25 mg PO TID PRN (Reason: Anxiety) metoprolol succinate 50 mg tablet extended release 24 hr 50 mg PO QAM lisinopril 20 mg tablet 20 mg PO QPM fluoxetine [Prozac] 20 mg capsule 20 mg PO QPM metaxalone 800 mg tablet 800 mg PO TID PRN (Reason: muscle pain) Qty: 30 1RF Ozempic 1 mg/dose (4 mg/3 mL) pen injector See Rx Instructions .ROUTE .COMPLEX Qty: 9 3RF Dose Instruction: INJECT 1MG SUBCUTANEOUSLY ONCE WEEKLY Rx Instructions: INJECT 1MG SUBCUTANEOUSLY ONCE WEEKLY hydrocodone-acetaminophen 5-325 mg tablet 1 tablet PO Q6H PRN (Reason: pain) Qty: 30 0RF ezetimibe [Zetia] 10 mg tablet 10 mg PO DAILY Qty: 90 3RF tamsulosin [Flomax] 0.4 mg capsule 0.4 mg PO DAILY Qty: 30 0RF Held testosterone [AndroGel] 20.25 mg/1.25 gram (1.62 %) gel in metered-dose pump 4 pump TOPICAL DAILY 90 Days Qty: 300 3RF Hold Instructions: HOLD - Resume when okay with your doctor Discontinued diazepam [Valium] 5 mg tablet 5 mg PO BID PRN (Reason: muscle spasm) Qty: 20 0RF Date of admission: 01/29/24 00:41 Primary Care Provider: Farhad Peters Admitting Provider: Thao Peraza Attending physician on admission: Thao Peraza Condition: Stable Hospitalist MIPS Heart Failure (Exclusion) Patient has history of Heart Transplant or Left Ventricular Assistive Device?: No IF YES, STOP HERE Heart Failure (Qualifier) Patient has current or prior documentation of LVEF less than or equal to 40%, or mod/servere depressed LVSF?: No IF NO, STOP HERE
[2024-01-31 12:18] LABS: Glucose Point of Care 104 mg/dl (65-105)
== END 2024-01-31 12:15 | disposition home or self-care (01) | DRG 872 ==
LOC: ANHED 19:42 → ANHIMU 01-29 01:44 → ANH3MEDSUR 01-30 21:24
PROVIDERS: Admitting Provider Internal Medicine; Emergency Provider Student in an Organized Health Care Education/Training Program; PCP Family Medicine; Visit Provider Internal Medicine
DX: A41.9 Sepsis, unspecified organism (principal); N10 Acute pyelonephritis; R09.02 Hypoxemia; E11.9 Type 2 diabetes mellitus without complications; D75.1 Secondary polycythemia; I25.10 Atherosclerotic heart disease of native coronary artery without angina pectoris; I10 Essential (primary) hypertension; B96.20 Unspecified Escherichia coli [E. coli] as the cause of diseases classified elsewhere; N13.5 Crossing vessel and stricture of ureter without hydronephrosis; N40.0 Benign prostatic hyperplasia without lower urinary tract symptoms; G47.33 Obstructive sleep apnea (adult) (pediatric); M47.816 Spondylosis without myelopathy or radiculopathy, lumbar region; I71.20 Thoracic aortic aneurysm, without rupture, unspecified; Z95.5 Presence of coronary angioplasty implant and graft; Z87.442 Personal history of urinary calculi; I25.2 Old myocardial infarction; Z79.82 Long term (current) use of aspirin; Z96.619 Presence of unspecified artificial shoulder joint; Z90.49 Acquired absence of other specified parts of digestive tract; Z87.891 Personal history of nicotine dependence
CPT/HCPCS: 36415; 71275; 74176; 80048; 80053; 80069; 81001; 82948; 83605; 83690; 84484; 85025; 87040; 87077; 87086; 87088; 87186; 93005; 96361; 96365; 96375; 99285; A9270; J0696; J1170; J1650; J2270; J2405; J2543; J7120; Q9967

== ENCOUNTER 2024-03-20 13:04 | Outpatient (CLI) | payer BC, SELFPAY ==
--- NOTE | ~2024-03-20 | XR_ITS ---
EXAMINATION: XR abdomen/kub 1V DATE: 03/20/2024 13:22 INDICATION: Right kidney stone. TECHNIQUE: A supine view of the abdomen on 2 radiographs was obtained. COMPARISON: Abdomen radiographs 03/07/2024, CT abdomen and pelvis 03/07/2024 FINDINGS: There are no dilated loops of bowel. Surgical clips are noted from ventral hernia repair. T here are 4 mm and 3 mm stones in right kidney. There is a 2 mm stone in left kidney. IMPRESSION: 1. Bilateral kidney stones. Reviewed, dictated and finalized at location A. 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 Bilateral kidney stones.
== END 2024-03-20 13:05 | disposition home or self-care (01) ==
PROVIDERS: PCP Family Medicine; Visit Provider Urology
DX: N20.0 Calculus of kidney (principal)
CPT/HCPCS: 74018

== ENCOUNTER 2024-04-07 08:21 | Outpatient (CLI) | payer BC, SELFPAY ==
--- NOTE | ~2024-04-07 | CT_ITS ---
EXAMINATION: CTA chest DATE: 04/07/2024 08:48 INDICATION: Aortic root dilatation. TECHNIQUE: Computed tomographic angiography (CTA) of the chest was performed with 100 mL Omnipaque-35 0 intravenous contrast. Automated exposure control and iterative reconstruction technique were employ ed. The dose-length product was 470.16 mGy-cm. Maximum intensity projection 3D-reconstructions of the aorta and other arteries were constructed by the technologist on a separate workstation. COMPARISON: Chest CT 01/28/2024 FINDINGS: The lungs demonstrate minimal atelectasis. No pleural effusion. Calcified mediastinal lymph nodes are consistent with old granulomatous disease. The heart size is normal. There are coronary ar betty calcifications. No pericardial effusion. There is no pulmonary embolus. Thoracic aorta measures 3.8 cm at the sinuses of Valsalva, 3.5 cm at the sinotubular junction, 4.0 cm in the mid ascending ao rta, 2.8 cm at the aortic isthmus, and 2.9 cm in the mid descending aorta. There is thoracolumbar dex troscoliosis and severe lumbar spondylosis. There is severe cervical spondylosis. IMPRESSION: 1. Ectasia of ascending aorta measuring 4.0 cm. Reviewed, dictated and finalized at location A. CE ASSOCIATE
[2024-04-07 08:44] LABS: Estimated Glomerular Filt Rate > 60
== END 2024-04-07 08:22 | disposition home or self-care (01) ==
PROVIDERS: PCP Family Medicine; Visit Provider Internal Medicine
DX: I77.810 Thoracic aortic ectasia (principal)
CPT/HCPCS: 71275; Q9967